=== PATIENT | female | born 1955 | race Caucasian/White ===

== ENCOUNTER → 2017-01-07 | Outpatient (CLI) | payer BC, OTHER ==
[2017-01-07 18:42] LABS: Basophils % (A) 0 %; CH 32.6; CHCM 33.5; Eosinophils % (A) 1 %; HCT 41.9 % (34.0-46.0); HDW 2.59; HGB 13.6 gm/dL (11.4-16.0); Luc # (Auto) 0.07; Luc % (Auto) 2; Lymphocytes # (A) 0.9 k/uL (1.0-4.8); Lymphocytes % (A) 20 %; MCH 31.7 pg (25.0-35.0); MCHC 32.5 g/dL (31.0-37.0); MCV 97.7 fL (80.0-100.0); Mean Platelet Volume 7.5; Monocytes # (A) 0.3 k/uL (0-1.0); Monocytes % (A) 6 %; Neutrophils # (A) 3.3 k/uL (1.3-7.7); Neutrophils % (A) 71 %; RBC 4.29 m/uL (3.80-5.40); WBC 4.6 k/uL (3.8-10.6); WBC (Perox) 4.93
[2017-01-07 19:05] LABS: ALT 24 U/L (9-52); AST 14 U/L (14-36); Alkaline Phosphatase 65 U/L (38-126); Anion Gap 11 mmol/L; Blood Urea Nitrogen 13 mg/dL (7-17); Calcium 8.8 mg/dL (8.4-10.2); Carbon Dioxide 27 mmol/L (22-30); Chloride 103 mmol/L (98-107); Cholesterol 132 mg/dL (<200); Glucose 85 mg/dL (74-99); HDL Cholesterol 31 mg/dL (40-60); Non-African American GFR(MDRD) >60 (>60 ml/min/1.73 sqM); Potassium 3.8 mmol/L (3.5-5.1); Sodium 141 mmol/L (137-145); Total Bilirubin 0.7 mg/dL (0.2-1.3); Total Protein 7.2 g/dL (6.3-8.2); Triglycerides 104 mg/dL (<150)
== END | disposition home or self-care (01) ==
LOC: MERGE 15:05 → MMGSC 15:05
PROVIDERS: ATTEND Family Medicine
DX: R42 Dizziness and giddiness (principal); M06.9 Rheumatoid arthritis, unspecified; R53.1 Weakness; E03.9 Hypothyroidism, unspecified; R60.0 Localized edema
CPT/HCPCS: 36415; 80053; 80061; 83880; 84439; 84443; 85025

== ENCOUNTER → 2017-01-08 | Outpatient (CLI) | payer BC | END | disposition home or self-care (01) | LOC: MMGSC 11:50 → MERGE 11:50 | PROVIDERS: ATTEND Family Medicine | DX: R94.5 Abnormal results of liver function studies (principal) | CPT/HCPCS: 36415; 84439; 84443; 84480 ==

== ENCOUNTER 2017-01-11 10:13 | Inpatient (IN) | payer BC, OTHER ==
[2017-01-11] MEDS ORDERED: RX INFO: IV CONTRAST WAS GIVEN 1 EACH MISC MISCELLANE PRN (10:42)
[2017-01-11] MEDS ORDERED: ACETAMINOPHEN IV (For NPO) 1,000 MG in SALINE 1 100ML.BAG IVPB STA (10:42)
[2017-01-11] MEDS ORDERED: SODIUM CHLORIDE 0.9% 1,000 ML IV STA (10:42)
[2017-01-11] MEDS ORDERED: ONDANSETRON 4 MG/2 ML VIAL IVP STA (10:42)
--- NOTE | 2017-01-11 10:48 | ED ---
General Adult HPI - General Chief complaint: Weakness Stated complaint: weakness Time Seen by Provider: 01/11/17 10:31 Source: patient, family, RN notes reviewed Mode of arrival: EMS Limitations: no limitations - History of Present Illness Initial comments: Patient is a pleasant 61-year-old female presenting to the emergency department complaining of generalized weakness. Symptoms have been on and off for the past 5 days. Patient has had intermittent episodes of weakness and falling. No significant injury. Patient has had some incontinence as well. Patient did have a fairly sudden onset headache on Thursday that was severe. Headache is mild at this time on the left side and only rated 3/10. Patient has had double vision for the past 3 days. Patient does complain of nausea. No isolated area of weakness. Patient does feel somewhat confused. - Related Data Home Medications Medication Instructions Recorded Confirmed ALPRAZolam [Xanax] 1 mg PO HS 12/25/15 01/11/17 Levothyroxine Sodium [Synthroid] 112 mcg PO DAILY 12/25/15 01/11/17 Metoprolol Succinate [Toprol XL] 50 mg PO DAILY@1700 12/25/15 01/11/17 buPROPion HCL [Wellbutrin XL] 300 mg PO DAILY 12/25/15 01/11/17 traZODone HCL [Desyrel] 100 mg PO HS 12/25/15 01/11/17 Allergies Allergy/AdvReac Type Severity Reaction Status Date / Time No Known Allergies Allergy Verified 01/11/17 10:27 Review of Systems ROS Statement: Those systems with pertinent positive or pertinent negative responses have been documented in the HPI. ROS Other: All systems not noted in ROS Statement are negative. Constitutional: Denies: fever Eyes: Denies: eye pain ENT: Denies: ear pain Respiratory: Denies: cough Cardiovascular: Denies: chest pain Endocrine: Reports: fatigue Gastrointestinal: Reports: nausea Genitourinary: Denies: dysuria Musculoskeletal: Denies: back pain Skin: Denies: rash Neurological: Reports: headache, weakness, confusion, abnormal gait Past Medical History Past Medical History: Deep Vein Thrombosis (DVT), Hypertension, Rheumatoid Arthritis (RA), Thyroid Disorder Additional Past Medical History / Comment(s): HX OF DVT IN LEG. History of Any Multi-Drug Resistant Organisms: None Reported Past Surgical History: Appendectomy, Bladder Surgery, Cholecystectomy, Hysterectomy, Tonsillectomy Additional Past Surgical History / Comment(s): THYROIDECTOMY, CATARACT RIGHT EYE Past Anesthesia/Blood Transfusion Reactions: Motion Sickness, Postoperative Nausea & Vomiting (PONV) Past Psychological History: Anxiety, Depression Smoking Status: Current every day smoker Past Alcohol Use History: None Reported Additional Past Alcohol Use History / Comment(s): SMOKES LESS THAN A PPD. SMOKING FOR 32 YEARS. Past Drug Use History: None Reported - Past Family History Son(s) Family Medical History: Cancer Additional Family Medical History / Comment(s): NEUROBLASTOMA General Exam Limitations: no limitations General appearance: alert, in no apparent distress Head exam: Present: atraumatic Eye exam: Present: PERRL, other (Disconjugate gaze which patient states is not chronic) ENT exam: Present: normal oropharynx Neck exam: Present: normal inspection Respiratory exam: Present: normal lung sounds bilaterally Cardiovascular Exam: Present: regular rate, normal rhythm GI/Abdominal exam: Present: soft. Absent: tenderness Extremities exam: Present: normal inspection Back exam: Present: normal inspection Neurological exam: Present: alert, oriented X3, other (Mild left facial droop not involving the forehead. No pronator deviation. Patient is unable to move the left eye medially past midline. Patient has difficulty moving the right thigh medially past midline.) Expanded Speech: Present: fluid speech Cranial nerves: EOM's Intact: Abnormal Right, Abnormal Left, Nystagmus: Abnormal Left (Some rotatory nystagmus with left eye left gaze), Facial Sensation: Normal Cerebellar function: Finger to Nose: Normal Sensory exam: Upper Extremity Light Touch: Normal, Lower Extremity Light Touch: Normal Motor strength exam: RUE: 5, LUE: 5, RLE: 5, LLE: 5 Eye Response: (4) open spontaneously Motor Response: (6) obeys commands Verbal Response: (5) oriented Psychiatric exam: Present: normal affect, normal mood Skin exam: Absent: rash Course Vital Signs 01/11/17 01/11/17 01/11/17 10:21 10:40 11:40 Temperature 98.5 F 98.2 F 98.3 F Pulse Rate 69 62 64 Respiratory 20 18 16 Rate Blood Pressure 107/60 148/81 134/65 O2 Sat by Pulse 9 L 98 95 Oximetry EKG Findings - EKG Comments: EKG Findings:: Normal sinus rhythm at 61. Normal intervals. Normal axis. Normal QRS. No acute ST change. Medical Decision Making - Medical Decision Making Patient reevaluated and unchanged. Patient is made aware of possibility of subarachnoid hemorrhage and is strongly advised to have lumbar puncture done. This was discussed with patient and family present over a long period of time. Patient was given risks and benefits. Patient is made aware that there is potential if this is not addressed symptoms could worsen and potentially lead to . Despite this patient refuses lumbar puncture. Patient does not want to be poked anymore. Patient does demonstrate medical decision making. Patient and family are made aware that there is concern still for possible subarachnoid hemorrhage even though it is not seen on CTA and computed tomography scan. Patient does have some symptoms consistent with this. There is also concern for stroke or possible tumor. Patient will need to be admitted with neurology evaluation. Case was discussed in detail with Dr. Lr, who will admit for Dr. Gtz. She does want MRI done and neurology consult. Also requests echo and EKG. There is agreement with Dr. Lr to hold on aspirin and anticoagulation at this time pending neurology consult and MRI. Patient and family were updated on all results and plan. - Lab Data Result diagrams: 01/11/17 11:03 01/11/17 11:03 Lab Results 01/11/17 01/11/17 01/11/17 Range/Units 10:46 11:03 11:03 WBC 4.1 (3.8-10.6) k/uL RBC 4.13 (3.80-5.40) m/uL Hgb 13.4 (11.4-16.0) gm/dL Hct 39.3 (34.0-46.0) % MCV 95.3 (80.0-100.0) fL MCH 32.4 (25.0-35.0) pg MCHC 34.1 (31.0-37.0) g/dL RDW 13.0 (11.5-15.5) % Plt Count 166 (150-450) k/uL Neutrophils % 73 % Lymphocytes % 20 % Monocytes % 5 % Eosinophils % 0 % Basophils % 1 % Neutrophils # 3.0 (1.3-7.7) k/uL Lymphocytes # 0.8 L (1.0-4.8) k/uL Monocytes # 0.2 (0-1.0) k/uL Eosinophils # 0.0 (0-0.7) k/uL Basophils # 0.0 (0-0.2) k/uL PT (9.0-12.0) sec INR (<1.1) APTT (22.0-30.0) sec Sodium (137-145) mmol/L Potassium (3.5-5.1) mmol/L Chloride (98-107) mmol/L Carbon Dioxide (22-30) mmol/L Anion Gap mmol/L BUN (7-17) mg/dL Creatinine (0.52-1.04) mg/dL Est GFR (MDRD) Af Amer (>60 ml/min/1.73 sqM) Est GFR (MDRD) Non-Af (>60 ml/min/1.73 sqM) Glucose (74-99) mg/dL POC Glucose (mg/dL) 74 L (75-99) mg/dL POC Glu Staff Electrical Engineer ID Ying, Marie Calcium (8.4-10.2) mg/dL Total Bilirubin (0.2-1.3) mg/dL AST (14-36) U/L ALT (9-52) U/L Alkaline Phosphatase (38-126) U/L Total Creatine Kinase 61 (30-135) U/L CK-MB (CK-2) <0.2 (0.0-2.4) ng/mL CK-MB (CK-2) Rel Index Troponin I <0.012 (0.000-0.034) ng/mL Total Protein (6.3-8.2) g/dL Albumin (3.5-5.0) g/dL 01/11/17 01/11/17 Range/Units 11:03 11:03 WBC (3.8-10.6) k/uL RBC (3.80-5.40) m/uL Hgb (11.4-16.0) gm/dL Hct (34.0-46.0) % MCV (80.0-100.0) fL MCH (25.0-35.0) pg MCHC (31.0-37.0) g/dL RDW (11.5-15.5) % Plt Count (150-450) k/uL Neutrophils % % Lymphocytes % % Monocytes % % Eosinophils % % Basophils % % Neutrophils # (1.3-7.7) k/uL Lymphocytes # (1.0-4.8) k/uL Monocytes # (0-1.0) k/uL Eosinophils # (0-0.7) k/uL Basophils # (0-0.2) k/uL PT 11.4 (9.0-12.0) sec INR 1.1 (<1.1) APTT 34.6 H (22.0-30.0) sec Sodium 140 (137-145) mmol/L Potassium 3.4 L (3.5-5.1) mmol/L Chloride 101 (98-107) mmol/L Carbon Dioxide 28 (22-30) mmol/L Anion Gap 11 mmol/L BUN 11 (7-17) mg/dL Creatinine 0.73 (0.52-1.04) mg/dL Est GFR (MDRD) Af Amer >60 (>60 ml/min/1.73 sqM) Est GFR (MDRD) Non-Af >60 (>60 ml/min/1.73 sqM) Glucose 91 (74-99) mg/dL POC Glucose (mg/dL) (75-99) mg/dL POC Glu Staff Electrical Engineer ID Calcium 8.2 L (8.4-10.2) mg/dL Total Bilirubin 0.8 (0.2-1.3) mg/dL AST 17 (14-36) U/L ALT 25 (9-52) U/L Alkaline Phosphatase 59 (38-126) U/L Total Creatine Kinase (30-135) U/L CK-MB (CK-2) (0.0-2.4) ng/mL CK-MB (CK-2) Rel Index Troponin I (0.000-0.034) ng/mL Total Protein 6.8 (6.3-8.2) g/dL Albumin 3.2 L (3.5-5.0) g/dL - Radiology Data Radiology results: image reviewed (Computed tomography scan of brain and CT of the brain shows no acute process. Two-view chest x-ray shows no acute process) Disposition Clinical Impression: Ocular palsy, Weakness Disposition: ADMITTED IP TO THIS [facility] Condition: Serious
[2017-01-11 10:51] LABS: Glucose,Whole Blood 74 mg/dL (75-99)
[2017-01-11 11:26] LABS: Basophils % (A) 1 %; CH 32.8; CHCM 34.6; Eosinophils % (A) 0 %; HCT 39.3 % (34.0-46.0); HDW 2.73; HGB 13.4 gm/dL (11.4-16.0); Luc # (Auto) 0.09; Luc % (Auto) 2; Lymphocytes # (A) 0.8 k/uL (1.0-4.8); Lymphocytes % (A) 20 %; MCH 32.4 pg (25.0-35.0); MCHC 34.1 g/dL (31.0-37.0); MCV 95.3 fL (80.0-100.0); Mean Platelet Volume 7.3; Monocytes # (A) 0.2 k/uL (0-1.0); Monocytes % (A) 5 %; Neutrophils % (A) 73 %; RBC 4.13 m/uL (3.80-5.40); WBC 4.1 k/uL (3.8-10.6); WBC (Perox) 3.96
[2017-01-11 11:34] LABS: INR 1.1 (<1.1); Partial Thromboplastin Time 34.6 sec (22.0-30.0); Prothrombin Time 11.4 sec (9.0-12.0)
[2017-01-11 11:50] LABS: ALT 25 U/L (9-52); AST 17 U/L (14-36); Alkaline Phosphatase 59 U/L (38-126); Anion Gap 11 mmol/L; Blood Urea Nitrogen 11 mg/dL (7-17); Calcium 8.2 mg/dL (8.4-10.2); Carbon Dioxide 28 mmol/L (22-30); Chloride 101 mmol/L (98-107); Glucose 91 mg/dL (74-99); Non-African American GFR(MDRD) >60 (>60 ml/min/1.73 sqM); Potassium 3.4 mmol/L (3.5-5.1); Sodium 140 mmol/L (137-145); Total Bilirubin 0.8 mg/dL (0.2-1.3); Total Protein 6.8 g/dL (6.3-8.2)
[2017-01-11 11:51] LABS: Creatine Kinase 61 U/L (30-135)
[2017-01-11 12:04] LABS: Creatine Kinase MB <0.2 ng/mL (0.0-2.4); Troponin I <0.012 ng/mL (0.000-0.034)
--- NOTE | 2017-01-11 12:07 | CT ---
EXAMINATION TYPE: CT brain wo con DATE OF EXAM: 01/11/2017 11:53 AM COMPARISON: NONE HISTORY: Neurologic deficits. Patient complains of weakness and double vision. TECHNIQUE: CT scan of the head is performed without contrast. Automated Exposure Control for Dose Red uction was Utilized. FINDINGS: There is no acute intracranial hemorrhage, mass effect, or midline shift identified. The ventricles and sulci are within normal limits in size. Patchy areas of hypoattenuation are seen with in the cortical white matter of the castro radiata and periventricular white matter. Mild symmetric v entricular and peripheral sulcal atrophy air noted. Ocular lenses are absent. Mild mucosal thickening is seen within the ethmoid sinuses. The globes are intact and the visualized sinuses are clear. IMPRESSION: 1. No acute intracranial hemorrhage, mass effect, or midline shift is seen. 2. Few nonspecific white matter changes, likely on the basis of chronic microangiopathy.
--- NOTE | 2017-01-11 12:12 | CT ---
EXAMINATION TYPE: CT angio head neck DATE OF EXAM: 01/11/2017 11:52 AM HISTORY: Neurologic deficits. COMPARISON: NONE CT DLP: 1029.9 mGycm. Automated Exposure Control for Dose Reduction was Utilized. Note the CT brain dictation the same day DLP of 57.4 TECHNIQUE: CTA scan of the neck is performed, patient injected with 65 mL of Omnipaque 350 and 50 ml of saline, axial images are obtained, coronal and sagittal reformatted images are reviewed. Three-D reconstructed images are created on an independent workstation and reviewed. FINDINGS: There is no evidence of vascular occlusion, aneurysmal outpouching, or dissection. Minimal nonhemodynamically significant atherosclerosis is seen at the right carotid bulb of less than 10% of the circumference. Nonhemodynamically significant atherosclerosis is also seen at the supraclinoid po rtion of the right internal carotid artery. No evidence of vascular malformation. [place] is intact. The left vertebral artery is codominant. Mild right paraseptal emphysematous changes are seen. Degenerative changes are appreciated of the cer vical spine. IMPRESSION: No evidence of vascular occlusion, aneurysm, or dissection. Minimal nonhemodynamically s ignificant atherosclerosis of the right carotid bulb and supraclinoid portion of the right internal c arotid artery.
--- NOTE | 2017-01-11 12:55 | XR ---
EXAMINATION TYPE: XR chest 2V DATE OF EXAM: 01/11/2017 12:30 PM COMPARISON: NONE INDICATION: Altered mental status congestion TECHNIQUE: Frontal and lateral views of the chest are obtained. FINDINGS: The heart size is normal. The pulmonary vasculature is normal. The lungs are clear. IMPRESSION: 1. No acute pulmonary process.
[2017-01-11] MEDS: SODIUM CHLORIDE 0.9% 1,000 ML IV SCH ×2 (14:23→22:38)
[2017-01-11] MEDS: METOPROLOL SUCCINATE (ER) 50 MG TAB.ER.24H PO SCH (17:07)
--- NOTE | 2017-01-11 17:34 | P.CNNES ---
History of Present Illness Consult date: 01/11/17 Reason for Consult: Patient admitted with diplopia and headaches. History of Present Illness: This patient is a 61-year-old right-handed white female who apparently 3 days ago had developed episode of blurred vision followed by double vision. Prior to this a few days earlier she was having difficulty ambulating at home. According to her who is at bedside she was having multiple falls at home 5 days ago. She was unable to keep her balance and apparently her legs were giving out and she was collapsing to the floor. She went to see her primary care physician Dr. Chris Howard ordered some testing for her. Her noted today that she was not showing any improvement and was complaining of increase double vision and decided to bring her to the emergency room. She was seen in the ER today at the [facility] by Dr. Campbell. She was found to have evidence of ocular muscle weakness with disconjugate eye gaze. She was sent for a computed tomography scan of the brain which revealed no acute intracranial hemorrhage or acute stroke. Some chronic white matter changes were noted. She also had a CTA angiogram of the head and neck which was reported negative for any vascular occlusive disease. Dr. Campbell did evaluate the patient for stroke and her NIH stroke scale was 5.0. Since her symptoms started 5 days prior she was not a TPA candidate. Due to the severity of her headache she was recommended to undergo a lumbar puncture by the ER physician. Once the procedure was explained to her she declined to have LP done as she was scared of possible complications. Her headache has since improved since admission. She is scheduled for MRI and MRA of the brain tomorrow and we will need to await those results. The patient denies any previous history of TIA or stroke. The patient was admitted to the hospital for further stroke evaluation. She is resting comfortably in bed at this time and denies any headache. She is complaining of vertical diplopia she does see one on top of the other in terms of her double vision. She is noted to have disconjugate eye gaze and does appear to have bilateral medial rectus muscle weakness. Her clinical history is highly suspicious for brainstem stroke. The patient denies any previous history of stroke. She does have a history of deep vein thrombosis after a long train ride but does not had any other clotting disorders in the past. There is no strong family history of stroke. She is now been admitted and neurology has been consulted for further evaluation and recommendations. Review of Systems Constitutional: Denies chills, Denies fever Eyes: denies blurred vision, denies pain Ears, nose, mouth and throat: Denies headache, Denies sore throat Cardiovascular: Denies chest pain, Denies shortness of breath Respiratory: Denies cough Gastrointestinal: Denies abdominal pain, Denies diarrhea, Denies nausea, Denies vomiting Genitourinary: Denies dysuria, Denies hematuria Musculoskeletal: Denies myalgias Integumentary: Denies pruritus, Denies rash Neurological: Reports double vision, Reports headaches, Reports lack of coordination, Reports paresthesias, Denies numbness, Denies weakness Psychiatric: Denies anxiety, Denies depression Endocrine: Denies fatigue, Denies weight change Past Medical History Past Medical History: Deep Vein Thrombosis (DVT), Hypertension, Rheumatoid Arthritis (RA), Thyroid Disorder Additional Past Medical History / Comment(s): HX OF DVT IN LEG. 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 SMOKING FOR 32 YEARS. Past Drug Use History: None Reported - Past Family History Son(s) Family Medical History: Cancer Additional Family Medical History / Comment(s): NEUROBLASTOMA Medications and Allergies Home Medications Medication Instructions Recorded Confirmed Type ALPRAZolam [Xanax] 1 mg PO HS 12/25/15 01/11/17 History Levothyroxine Sodium [Synthroid] 112 mcg PO DAILY 12/25/15 01/11/17 History Metoprolol Succinate [Toprol XL] 50 mg PO DAILY@1700 12/25/15 01/11/17 History buPROPion HCL [Wellbutrin XL] 300 mg PO DAILY 12/25/15 01/11/17 History traZODone HCL [Desyrel] 100 mg PO HS 12/25/15 01/11/17 History Allergies Allergy/AdvReac Type Severity Reaction Status Date / Time No Known Allergies Allergy Verified 01/11/17 13:18 Physical Examination - Vital Signs Vital Signs: Vital Signs Temp Pulse Pulse Resp BP BP Pulse Ox 01/11/17 15:00 96.8 F L 57 L 18 115/56 97 01/11/17 13:40 98.3 F 56 L 16 101/50 92 L Intake and Output 01/11/17 01/11/17 01/11/17 06:59 14:59 22:59 Other: Weight 71.2 kg Patient Weight 01/12/17 06:59 Weight 71.2 kg - Constitutional General appearance: average body habitus, cooperative - EENT EENT: mucous membranes moist - Respiratory Respiratory: lungs clear, normal breath sounds - Cardiovascular Cardiovascular: regular rate, normal S1, normal S2 Extremities: no peripheral edema bilaterally - Gastrointestinal Gastrointestinal: normoactive bowel sounds - Integumentary Integumentary: normal - Neurologic Cranial nerve examination: PERRL, EOMI (Patient is noted to have bilateral medial rectus weakness in both eyes. Pupil does not cross midline on medial gaze bilaterally.), VFF, V1/V2/V3 grossly intact, tongue midline, intact gag reflex, intact corneal reflex, facial droop (There is a left upper motor neuron facial weakness pattern.), normal palatal elevation Speech examination: intact Sensorimotor examination: intact Motor examination - right side: 3/5: wrist extension, commodity merchant, knee extensors, 4/5 : biceps, triceps, wrist flexion, hip flexors, dorsiflexion, toe extension (EHL) , plantarflexion Motor examination - left side: 5/5: biceps, triceps, wrist flexion, wrist extension, commodity merchant, hip flexors, knee extensors, dorsiflexion, toe extension (EHL) , plantarflexion Detailed sensory examination: intact Reflex and gait examination: intact Reflexes: 1+: ankle, bicep, knee, tricep - Musculoskeletal Musculoskeletal: no pain - Psychiatric Psychiatric: mood/affect appropriate, cooperative Results - Laboratory Findings CBC and BMP: 01/11/17 11:03 01/11/17 11:03 Assessment and Plan (1) Brainstem stroke Status: Acute Code(s): I63.9 - CEREBRAL INFARCTION, UNSPECIFIED (2) Headache Status: Acute Code(s): R51 - HEADACHE (3) Third nerve palsy of both eyes Status: Acute Code(s): H49.03 - THIRD [OCULOMOTOR] NERVE PALSY, BILATERAL Plan: This patient is a 61-year-old female who was brought into the emergency room after having a 5 day history of multiple falls and weakness. Patient also had severe headache 2 days ago as well as sudden onset of diplopia. The diplopia started 2 days prior to her admission. She was brought in to her primary care physician's office for initial evaluation last week. She was recommended to undergo some testing. Her symptoms worsen today and her brought her to the emergency room. She was seen in the ER by Dr. Campbell. She was recommended to undergo a lumbar puncture to rule out subarachnoid hemorrhage due to her headaches. The patient declined and refused LP procedure and was admitted to Hospital. Her neurological examination at this time suggest brainstem stroke. We have recommended that she undergo an MRI/MRA of the brain for further evaluation. We will hold off on aspirin until results of the MRI MRA are available tomorrow. Patient may benefit from patching the eye alternatively due to her onset of diplopia. Would also consider ophthalmology consultation. We have recommended a complete stroke evaluation for the patient. Her overall prognosis at this time remains very guarded. Case was discussed at length with the patient and her at bedside. All of their questions were answered. They are in agreement with our current treatment plan and we will proceed with a complete stroke evaluation for her at this time. Her overall prognosis at this time remains guarded. Case was discussed today at length with the ER physician Dr. Campbell. As noted she is not a TPA candidate as she is out of the therapeutic window. We will await the results of her MRI MRA of the brain and give further recommendations. Time with Patient: Greater than 30
[2017-01-11] MEDS: traZODone HCL 100 MG TAB PO SCH (20:56)
[2017-01-11] MEDS: ALPRAZolam 0.5 MG TAB PO SCH (20:56)
[2017-01-11] MEDS ORDERED: ACETAMINOPHEN TAB 325 MG TAB PO PRN (23:45)
[2017-01-12] MEDS: IBUPROFEN 600 MG TAB PO PRN ×2 (00:33→15:51)
[2017-01-12] MEDS: LEVOTHYROXINE 112 MCG TAB PO SCH (06:44)
[2017-01-12] MEDS: SODIUM CHLORIDE 0.9% 1,000 ML IV SCH ×2 (08:36→20:53)
--- NOTE | 2017-01-12 09:41 | MR ---
EXAMINATION TYPE: MR brain wo/w con, MR angio head wo con DATE OF EXAM: 01/12/2017 9:24 AM COMPARISON: CT brain and CTA [place] from yesterday. HISTORY: Ocular palsy, weakness TECHNIQUE: Multiplanar, multisequence images of the brain and brainstem is performed without and with IV contras t, utilizing 15 mL intravenous MultiHance . MRA imaging is performed without contrast. 2-D and 3-D re constructed images are created and reviewed. FINDINGS: Diffusion weighted images demonstrate single faint area of increased signal on diffusion we ighted images with diminished signal ADC mapping in the posterior inferior david just right of midline that does not reproduce well on T1 and T2-weighted images in which area of acute ischemia cannot be excluded. There is no worrisome extra-axial fluid collection. There is ventricular and sulcal promine nce consistent with diffuse cerebral atrophy. There are some scattered foci of T2 hyperintensity seen throughout the white matter bilaterally with 2 largest lesions seen on axial image 22 just above the lateral ventricles. Lesions are nonspecific in appearance and distribution. Roughly 10 focal lesions are felt present. Midline structures demonstrate normal morphology. The craniocervical junction appears within normal limits. Post contrast images demonstrate no abnormal enhancement. The dural venous sinuses appear pa tent. There is moderate mucosal thickening involving ethmoid sinuses bilaterally. There is mild to mo derate mucosal thickening involving the sphenoid sinuses bilaterally. Mild mucosal thickening in both maxillary sinuses is present. I suspect some new air-fluid levels in bilateral maxillary sinuses and left sphenoid sinus. Findings correlate with recent CT. The globes are intact bilaterally. Both lens es are thinned. Basilar artery origin is not included in entirety on MRI images. There is no significant focal stenos is or aneurysmal change in the posterior circulation. There is a small caliber but patent right poste rior communicating artery. There is hypoplastic left posterior communicating artery identified. Image s of the anterior circulation show no significant focal stenosis or aneurysmal change. Patent anterio r communicating artery is not well identified. IMPRESSION: 1. Suspect acute lacunar infarct involving the posterior inferior david just right of midline. Finding is not reproduced while on T1 or T2-weighted images perhaps due to small size. 2. There is background of mild to moderate diffuse cerebral atrophy and chronic small vessel ischemic change redemonstrated. 3. There is acute on chronic paranasal sinus disease redemonstrated slightly more prominent than rece nt CT. 4. No aneurysmal change at level of [place]. No significant focal stenosis is seen.
--- NOTE | 2017-01-12 10:22 | ECHOF ---
Referral Reason:Thrombus MEASUREMENTS -------- HEIGHT: 162.6 cm WEIGHT: 72.1 kg BP: 109/56 RVIDd: 3.4 cm (< 3.3) IVSd: 1.2 cm (0.6 - 1.1) LVIDd: 3.8 cm (3.9 - 5.3) LVPWd: 1.3 cm (0.6 - 1.1) IVSs: 1.3 cm LVIDs: 2.7 cm LVPWs: 1.4 cm LA Diam: 3.0 cm (2.7 - 3.8) LAESV Index (A-L): 14.78 ml/m Ao Diam: 3.3 cm (2.0 - 3.7) AV Cusp: 2.4 cm (1.5 - 2.6) LA Diam: 3.2 cm (2.7 - 3.8) MV EXCURSION: 18.742 mm (> 18.000) MV EF SLOPE: 133 mm/s (70 - 150) EPSS: 0.6 cm MV E Aaron: 0.75 m/s MV DecT: 262 ms MV A Aaron: 0.45 m/s MV E/A Ratio: 1.65 RAP: 5.00 mmHg RVSP: 38.46 mmHg FINDINGS -------- Resting bradycardia (HR<60bpm). This was a technically good study. There is mild concentric left ventricular hypertrophy. Overall left ventricular systolic function is normal with, an EF between 55 - 60 %. The right ventricle is mildly enlarged. Normal LA size by volume 22+/-6 ml/m2. The right atrium is normal in size. The aortic valve is trileaflet and appears structurally normal. The mitral valve leaflets are mildly thickened. Mild mitral annular calcification present. Mild tricuspid regurgitation present. There is mild pulmonary hypertension. The right ventricular systolic pressure, as measured by Doppler, is 38.46mmHg. The pulmonic valve was not well visualized. The aortic root size is normal. Normal inferior vena cava with normal inspiratory collapse consistent with estimated right atrial pressure of 5 mmHg. Echo free space may represent effusion or a pericardial fat pad. CONCLUSIONS -------- 1. Resting bradycardia (HR<60bpm). 2. Mild mitral annular calcification present. 3. Mild tricuspid regurgitation present. 4. There is mild pulmonary hypertension. 5. The right ventricular systolic pressure, as measured by Doppler, is 38.46mmHg. 6. The pulmonic valve was not well visualized. 7. The aortic root size is normal. 8. Echo free space may represent effusion or a pericardial fat pad. 9. This was a technically good study. 10. There is mild concentric left ventricular hypertrophy. 11. Overall left ventricular systolic function is normal with, an EF between 55 - 60 %. 12. The right ventricle is mildly enlarged. 13. Normal LA size by volume 22+/-6 ml/m2. 14. The right atrium is normal in size. 15. The aortic valve is trileaflet and appears structurally normal. 16. The mitral valve leaflets are mildly thickened. FILTER TANK TENDER: Bunny Williamson RDCS
[2017-01-12] MEDS: buPROPion XL 300 MG TAB.ER.24H PO SCH (10:37)
[2017-01-12 13:45] VITALS: BMI 27.3
[2017-01-12] MEDS: NICOTINE 14MG/24HR PATCH TRANSDERM SCH (14:35)
[2017-01-12] MEDS: METOPROLOL SUCCINATE (ER) 50 MG TAB.ER.24H PO SCH (15:53)
--- NOTE | 2017-01-12 15:55 | P.HPIM ---
History of Present Illness H&P Date: 01/12/17 Chief Complaint: stroke, double vision, abnormal balance and gait, debility, hypertension, h 61-year-old female one of Dr. Coughlin's patient with past medical history of hypertension hypothyroidism depression history of rheumatoid arthritis COPD and previous history of deep venous thrombosis who smoke 1 pack daily for 32 years was doing well until 3 days earlier when developed to have severe dizziness abnormal balance and gait multiple fall and double vision symptoms become much worse over the last 48 hours with her episode of falling many times with her abnormal balance and the double vision ended up coming to the emergency department at [facility] with you in her was seen and evaluated CT of the brain did not show any bleed at the time. Patient had CTA of the neck was negative for any major stenosis. With her current symptoms consistent with CVA most likely the brain stem or cerebellum patient was admitted to the hospital consult neurology and will be going for echocardiogram possible transesophageal echocardiogram with neuro exam will need most likely ophthalmology consultation. Review of Systems Constitutional: Reports chronic pain, Reports fatigue, Reports lethargy, Reports malaise, Reports poor appetite, Reports weakness, Reports weight loss, Denies as per HPI, Denies anorexia, Denies chills, Denies chronic headaches, Denies daytime sleepiness, Denies fever, Denies night sweats, Denies sweats, Denies weight gain Eyes: bilateral blurred vision, bilateral diplopia, bilateral discharge, bilateral photophobia Ears: bilateral: decreased hearing Ears, nose, mouth and throat: Reports ant. neck pain, Reports dysphagia, Reports nasal discharge, Reports post-nasal drip, Denies as per HPI, Denies bleeding gums, Denies dental pain, Denies epistaxis, Denies headache, Denies hoarseness, Denies mouth pain, Denies nasal congestion, Denies neck fullness/ pressure, Denies neck lump, Denies nose pain, Denies odynophagia, Denies sinus pain, Denies sinus pressure, Denies swelling in mouth, Denies swelling in throat , Denies sore throat, Denies vertigo, Denies voice changes Cardiovascular: Reports dyspnea on exertion, Reports edema, Reports lightheadedness, Reports orthopnea, Reports rapid heart beat, Reports shortness of breath, Denies as per HPI, Denies chest pain, Denies claudication, Denies decreased exercise tolerance, Denies high blood pressure, Denies irregular heart beat, Denies leg edema, Denies palpitations, Denies paroxysmal nocturnal dyspnea, Denies phlebitis, Denies syncope Respiratory: Reports congestion, Reports cough, Reports dyspnea, Reports wheezing, Denies as per HPI, Denies cough with sputum, Denies excessive sputum, Denies hemoptysis, Denies home oxygen, Denies pain, Denies pain on inspiration, Denies pleurisy, Denies respiratory infections, Denies sleep apnea, Denies snoring Gastrointestinal: Reports abdominal pain, Reports belching, Reports bloating, Reports BRBPR, Reports constipation, Reports dyspepsia, Reports indigestion, Reports nausea, Denies as per HPI, Denies change in bowel habits, Denies coffee ground emesis, Denies diarrhea, Denies early satiety, Denies excessive gas, Denies heartburn, Denies hematemesis, Denies hematochezia, Denies jaundice, Denies lactose intolerance, Denies loss of appetite, Denies melena, Denies vomiting Genitourinary: Reports urgency, Reports urinary frequency, Denies as per HPI, Denies abnormal vaginal bleeding, Denies decreased libido, Denies difficulty conceiving, Denies difficulty voiding, Denies dysmenorrhea, Denies dyspareunia, Denies dysuria, Denies flank pain, Denies genital sores, Denies hematuria, Denies hot flashes, Denies incomplete emptying, Denies kidney stones, Denies menorrhagia, Denies mixed incontinence, Denies nocturia, Denies pelvic pain, Denies post void dribbling, Denies , Denies prolapse symptoms, Denies stress incontinence, Denies urge incontinence, Denies vaginal discharge, Denies vaginal dryness, Denies vaginal itching, Denies vaginal odor Musculoskeletal: Reports arm numbness/tingling, Reports frequent falls, Reports gait dysfunction, Reports morning stiffness, Reports neck pain, Reports neck stiffness, Reports prior amputations, Denies as per HPI, Denies atrophy, Denies fractures, Denies hot joints, Denies leg numbness/tingling, Denies limitation of motion, Denies loss of height, Denies low back pain, Denies muscle cramps, Denies muscle weakness, Denies myalgias, Denies redness of joints, Denies shooting arm pain, Denies shooting leg pain Musculoskeletal: bilateral: ankle pain Integumentary: Reports darkening of skin, Reports dryness, Reports pruritus, Reports rash, Denies as per HPI, Denies acne, Denies boils, Denies brittle nails , Denies change in hair/nails, Denies color changes, Denies depigmentation, Denies foot/leg ulcers, Denies growths, Denies hirsutism, Denies lesions, Denies onychomycosis, Denies sores, Denies striae, Denies unusual bruising, Denies wounds Neurological: Reports ataxia, Reports balance difficulties, Reports change in smell/taste, Reports confusion, Reports double vision, Reports gait dysfunction , Reports headaches, Reports lack of coordination, Reports motor disturbance, Reports numbness, Reports paralysis, Reports paresthesias, Reports spasticity, Reports tingling, Reports weakness, Reports visual changes, Denies as per HPI, Denies aphasia, Denies burning pain, Denies change in mentation, Denies change in speech, Denies convulsions, Denies head injury, Denies hearing difficulties, Denies loss of vision, Denies memory loss, Denies migraines, Denies seizures, Denies sensory deficit, Denies syncope, Denies tic, Denies transient paralysis, Denies tremors, Denies vertigo Psychiatric: Reports anhedonia, Reports anxiety, Reports depression, Reports sadness/tearfulness, Denies as per HPI, Denies anxiety attacks, Denies change in appetite, Denies change in libido, Denies change in sleep habits, Denies confusion, Denies difficulty concentrating, Denies disorientation, Denies hallucinations, Denies hopelessness, Denies hypersomnia, Denies insomnia, Denies irritability, Denies memory loss, Denies mood swings, Denies paranoia, Denies sleep disturbances, Denies suicidal ideation Endocrine: Reports cold intolerance, Reports excessive thirst, Reports nocturia , Reports polyuria, Denies as per HPI, Denies deepening of the voice, Denies excessive sweating, Denies fatigue, Denies flushing, Denies heat intolerance, Denies high blood sugars, Denies increase in ring/shoe/hat size, Denies low blood sugars, Denies palpitations, Denies polydipsia, Denies polyphagia, Denies proptosis, Denies recent glucocorticoid use, Denies thyroid mass, Denies weight change Hematologic/Lymphatic: Denies as per HPI, Denies easy bleeding, Denies easy bruising, Denies lymphadenopathy, Denies lymphedema, Denies thrombophilia Allergic/Immunologic: Denies as per HPI, Denies allergic rhinitis, Denies anaphylaxis, Denies angioedema, Denies gluten intolerance, Denies persistent infections, Denies seasonal allergies, Denies urticaria, Denies wheezing Past Medical History Past Medical History: Deep Vein Thrombosis (DVT), Hypertension, Rheumatoid Arthritis (RA), Thyroid Disorder Additional Past Medical History / Comment(s): HX OF DVT IN LEG. 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 SMOKING FOR 32 YEARS. Past Drug Use History: None Reported - Past Family History Son(s) Family Medical History: Cancer Additional Family Medical History / Comment(s): NEUROBLASTOMA Medications and Allergies Home Medications Medication Instructions Recorded Confirmed Type ALPRAZolam [Xanax] 1 mg PO HS 12/25/15 01/11/17 History Levothyroxine Sodium [Synthroid] 112 mcg PO DAILY 12/25/15 01/11/17 History Metoprolol Succinate [Toprol XL] 50 mg PO DAILY@1700 12/25/15 01/11/17 History buPROPion HCL [Wellbutrin XL] 300 mg PO DAILY 12/25/15 01/11/17 History traZODone HCL [Desyrel] 100 mg PO HS 12/25/15 01/11/17 History Allergies Allergy/AdvReac Type Severity Reaction Status Date / Time No Known Allergies Allergy Verified 01/11/17 13:18 Physical Exam Vitals: Vital Signs Temp Pulse Resp BP Pulse Ox 01/12/17 12:00 97.2 F L 56 L 16 145/63 98 01/12/17 10:00 96.3 F L 54 L 18 132/59 96 01/12/17 08:00 97.4 F L 66 18 109/55 98 01/12/17 04:00 98.5 F 59 L 16 109/56 94 L 01/12/17 00:00 103.3 F H 77 17 122/58 93 L 01/11/17 20:00 100.3 F H 70 16 148/69 96 01/11/17 18:00 58 L 18 104/63 100 01/11/17 17:00 64 18 116/57 95 01/11/17 16:00 99.1 F 58 L 18 101/52 97 01/11/17 15:00 96.8 F L 57 L 18 115/56 97 Intake and Output 01/11/17 01/12/17 01/12/17 22:59 06:59 14:59 Intake Total 180 1000 190 Balance 180 1000 190 Intake: IV 1000 10 Invasive Line 3 10 Sodium Chloride 0.9% 1, 1000 000 ml @ 100 mls/hr IV . Q10H [facility] Rx#:[id number] Oral 180 180 Other: Voiding Method Toilet Toilet # Voids 1 1 1 # Bowel Movements 0 Weight 72.3 kg 72.3 kg Patient Weight 01/13/17 06:59 Weight 72.3 kg - Constitutional General appearance: no average body habitus, cooperative, no disheveled, no mild distress, no morbidly obese, no acute distress, no obese, no severe distress, no thin - EENT Eyes: no abnormal pupil, no anicteric sclerae, no disc margins sharp, no edentulous, no EOMI, no PERRLA, no fundus normal, photophobia, dentition normal , no poor dentition, no ptosis, no scleral icterus, normal appearance ENT: no hard of hearing, no hearing grossly normal, no NA/AT, normal oropharynx , no other, pharyngeal erythema, no thrush, no tonsillar exudates, no tonsillar swelling Ears: bilateral: normal - Neck Neck: no lymphadenopathy, normal ROM, no other, no rigidity, no stridor, no thyromegaly Carotids: bilateral: upstroke normal Thyroid: bilateral: normal size - Respiratory Respiratory: bilateral: CTA, diminished, dullness, rales - Cardiovascular Rhythm: regular Heart sounds: normal: S1, S2 Abnormal Heart Sounds: systolic murmur, S3 Gallop - Gastrointestinal General gastrointestinal: absent bowel sounds, no decreased bowel sounds, distended, no hepatomegaly, hyperactive bowel sounds, no normal bowel sounds, organomegaly, no rigid, no scaphoid, no soft, no splenomegaly, no tenderness, no umbilical hernia, no ventral hernia - Integumentary Integumentary: no calor, no cellulitis, no cyanotic, no decreased turgor, no flushed, no jaundiced, no normal, normal turgor, pale, rash, no ulcer - Musculoskeletal Musculoskeletal: no gait normal, no generalized weakness, strength equal bilaterally, no right sided weakness, no left sided weakness - Psychiatric Psychiatric: A&O x's 3, appropriate affect Results CBC & Chem 7: 01/11/17 11:03 01/11/17 11:03 Thrombosis Risk Factor Assmnt - DVT/VTE Prophylaxis DVT/VTE Prophylaxis: Pharmacologic Prophylaxis ordered, Mechanical Prophylaxis ordered - Choose All That Apply Any of the Below Risk Factors Present?: Yes Each Factor Represents 1 point: Age 41-60 years, Obesity (BMI >25) Other Risk Factors: Yes Each Risk Factor Represents 3 Points: History of DVT/PE Thrombosis Risk Factor Assessment Total Risk Factor Score: 5 Thrombosis Risk Factor Assessment Level: High Risk Assessment and Plan Plan: 1 CVA: Still have significant residual with abnormal balance and gait and more ophthalmology symptoms consistent with a creatinine nerve III 4 and 6. Patient had creatinine nerve III palsy which will be evaluated byneuro and ophthalmology. Continue aspirin continue to use most likely antiplatelet agent for now. 2 double vision and severe abnormal vision: Patient be seen ophthalmology might need eyepatch further procedure will be decided by ophthalmology. 3 hypertension: Remain on metoprolol XL 50 mg daily Will add clonidine 0.1 mg every 6 hour for systolic above 160. 4 hypothyroidism: Patient is doing well on levothyroxine 112 g daily continue medication. 5 depression: Has been on Wellbutrin XL 300 mg daily and Desyrel 100 mg daily at bedtime. 6 arrhythmia: Possibility of nonsustained A. fib, we'll consult cardiology and patient might require loop monitor if needed YESSICA will be done. 7 chronic smoking: Patient be on nicotine patch 14 mg daily. 8 GERD/GI prophylaxis: Patient will be on Pepcid 20 mg daily. 9 debility and severe abnormal balance and gait with multiple falls: Patient will be seen PT OT will consult physiatry for possible need for inpatient or outpatient rehab. CODE STATUS: Full code. Expectation from this admission: Patient be in the hospital for more than 2 nights.
--- NOTE | 2017-01-12 16:28 | CONS ---
DATE OF CONSULTATION: CHIEF COMPLAINT: Recurrent falls, not feeling well and dizziness. Cardiology has been consulted to rule out cardiac source for thromboembolic phenomenon. The patient's predominant symptom is in the form of diplopia and headache. She has been falling. She had a CTA of the head and neck that is negative for occlusive disease. Her symptoms started about 5 days prior to coming in. Her clinical presentation was thought to be suggestive of a brainstem stroke. Past medical history is significant for: 1. DVT. 2. Hypertension. 3. Rheumatoid arthritis. Past surgical history is significant for: 1. Appendectomy. 2. Cholecystectomy. 3. Bladder surgery. 4. Hysterectomy. 5. Tonsillectomy. Medications include: 1. Xanax. 2. Synthroid. 3. Metoprolol. 4. Wellbutrin. 5. Desyrel. ALLERGIES: NO KNOWN DRUG ALLERGIES. FAMILY HISTORY: Negative for premature coronary artery disease. SOCIAL HISTORY: Negative for current smoking, ETOH abuse or drug abuse. REVIEW OF SYSTEMS: HEENT: Significant for blurred vision. CONSTITUTIONAL: Negative for fever, chills. CARDIOVASCULAR: Negative. RESPIRATORY: Negative. GI: Negative. GENITOURINARY: Negative. MUSCULOSKELETAL: Significant for myalgias. SKIN: Negative. NEUROLOGICAL: Significant for double vision, lack of coordination, weakness and recurrent falls. PSYCH: Negative. ENDOCRINE: Negative. On exam, patient is comfortable at rest. Vital signs are stable. There is no jugular venous distention. Chest exam reveals good air entry bilaterally. Heart exam reveals first and second heart sounds. No gallop. No murmur. Abdomen is soft, nontender. Examination of extremities did not reveal edema. Peripheral pulses are felt. Labs show that troponin is negative. EKG does not reveal ischemic changes. Potassium is 3.4. Creatinine is 0.7. ASSESSMENT: Cerebrovascular accident; rule out cardiac source of thromboembolic phenomenon. Echo looks normal. Patient is in sinus rhythm. I will do a YESSICA and we will consider doing a loop recorder on her if her event monitor is negative.
--- NOTE | 2017-01-12 19:31 | P.PN ---
Subjective This patient is a 61 year old female admitted yesterday for diplopia and mutiple falls at home. She was seen in neurology consultation yesterday and showed neurological clinical signs of probable brainstem stroke. The patient was sent for MRI/MRA brain today for further evaluation. MRI of the brain was completed today and did reveal evidence of a lacunar infarction in the pontine region of the brain stem. This was more noticeable on the right of midline. There was moderate degree of diffuse cerebral atrophy and chronic white matter ischemic changes noted as well. MRA failed to reveal any evidence of aneurysm. The results of the MRI and MRA were reviewed today with the patient. Cardiology was consult today for further evaluation of cardiac source for her stroke. She is being considered for possibility of paroxysmal atrial fibrillation. She may require a loop recorder as well as a YESSICA procedure. We will await further recommendations from cardiology. Patient's ocular findings have shown no significant improvement from yesterday. She may benefit from patching the eye during the day. We would recommend to consider placing this patient on dual platelet therapy with aspirin and Plavix. We will await the results of her cardiac workup and we'll give further recommendations. All test results were reviewed today with the patient in detail. She has been updated on the MRI findings of acute brainstem stroke. We will continue close neurological follow-up for the patient during this admission. Objective - Vital Signs Vital signs: Vital Signs Temp 97.2 F L 01/12/17 12:00 Pulse 56 L 01/12/17 12:00 Resp 16 01/12/17 12:00 BP 145/63 01/12/17 12:00 Pulse Ox 98 01/12/17 12:00 Intake & Output 01/11/17 01/12/17 01/12/17 18:59 06:59 18:59 Intake Total 1180 190 Balance 1180 190 Weight 71.2 kg 72.3 kg 72.3 kg Intake: IV 1000 10 Invasive Line 3 10 Sodium Chloride 0.9% 1, 1000 000 ml @ 100 mls/hr IV . Q10H [facility] Rx#:[id number] Oral 180 180 Other: Voiding Method Toilet # Voids 1 1 # Bowel Movements 0 - Exam Physical Examination: PHYSICAL EXAMINATION: Patient is resting comfortably in bed. VITAL SIGNS: Blood pressure is [145/70]. Heart rate is [67]. Respiration is [16] . Temperature is [97.2]. HEENT: Head is atraumatic, neck is supple, there were no carotid bruits. CHEST: Lungs are clear to auscultation and percussion. CARDIAC: S1, S2 normal rate and rhythm. There is no murmur. ABDOMEN: Soft and nontender. Bowel sounds are present. EXTREMITIES: There is no pedal edema. Peripheral pulses are present. Neurological examination: Patient's neurological examination is unchanged from yesterday. Specifically her eye findings remain significant with evidence of bilateral medial rectus weakness. This is consistent with MRI findings of pontine stroke. 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 Patient also had severe headache 2 days ago as well as sudden onset of diplopia. The diplopia started 2 days prior to her admission. She was brought in to her primary care physician's office for initial evaluation last week. She was recommended to undergo some testing. Her symptoms worsen today and her brought her to the emergency room. She was seen in the ER by Dr. Campbell. She was recommended to undergo a lumbar puncture to rule out subarachnoid hemorrhage due to her headaches. The patient declined and refused LP procedure and was admitted to Hospital. Her neurological examination at this time suggest brainstem stroke. We have recommended that she undergo an MRI/MRA of the brain for further evaluation. We will hold off on aspirin until results of the MRI MRA are available tomorrow. Patient may benefit from patching the eye alternatively due to her onset of diplopia. Would also consider ophthalmology consultation. We have recommended a complete stroke evaluation for the patient. Her overall prognosis at this time remains very guarded. Case was discussed at length with the patient and her at bedside. All of their questions were answered. The patient underwent MRI/MRA of the brain today. Results are as noted above. MRI of the brain does reveal evidence of a pontine stroke. This would explain her visual deficits at this time. She was seen by cardiology for further evaluation of cardiac source of stroke. She is being considered for YESSICA procedure as well as loop recorder for further evaluation of cryptogenic stroke. We will continue close neurological follow-up of this patient during this admission. She may be a very good candidate for dual platelet therapy with Plavix and aspirin. We will wait to see the results of her cardiac workup and we'll give further recommendations. The patient and her were updated on all of the neurological findings today. We will continue close neurological follow-up of this patient during this admission. Her overall prognosis at this time remains guarded.
--- NOTE | 2017-01-12 20:44 | CONS ---
DATE OF CONSULTATION: HISTORY: This is a 61-year-old white female who states that approximately 6 days ago she developed an episode of blurred vision which was accompanied by double vision. The patient stated that she struggled with this for several days and ultimately was seen by her primary care physician. The patient states that her double vision has persisted since its onset 6 days ago and has not improved or changed in nature. The patient denies any blurred vision with this and also denies any previous occurrences of this happening. The patient was admitted to the hospital for evaluation of a possible CVA. PHYSICAL EXAM: Visual acuity measured 20/30 with correction bilaterally. Pupils were equal and reactive to light. There was no afferent defect. On external exam, the lids were normal in appearance. There was no ptosis on either side. On penlight exam, the lids were normal in contour. The conjunctivae were quiet. Both corneas were clear. The anterior chambers were deep. The iris was normal and there was no evidence of lens dislocation. Motility: The patient has bilateral adduction deficits. She is not able to cross the midline gaze position in either eye. The superior and inferior gaze positions have not been affected. IMPRESSIONS: Bilateral internuclear ophthalmoplegia (AKA Webino syndrome, wall-eyed bilateral GRETA). This patient does not appear to have a bilateral third nerve palsy. (Typically ptosis is present if a third nerve palsy should occur. In addition, there should be a decrease in the patient's ability to gaze either superiorly or inferiorly, which is not present.) In a bilateral internuclear ophthalmoplegia, there is likely a rostral lesion within the mid brain that affects the convergence center which is causing the bilateral divergence that is evident in this patient's exam. In addition, in attempted abduction, the eye that is being abducted will often result in a nystagmus, which in fact is present in this patient's exam. The management of this is conservative, and intervention is not indicated at this time. I asked the patient to follow up upon discharge from the hospital, and palliative care usually involves covering one eye with a patch in order to alleviate symptoms of diplopia until which time resolution of this can occur.
[2017-01-12] MEDS: ALPRAZolam 0.5 MG TAB PO SCH (20:53)
[2017-01-12] MEDS: traZODone HCL 100 MG TAB PO SCH (20:53)
[2017-01-13] MEDS: IBUPROFEN 600 MG TAB PO PRN ×2 (01:35→12:46)
[2017-01-13] MEDS: SODIUM CHLORIDE 0.9% 1,000 ML IV SCH ×3 (06:32→15:55)
[2017-01-13 07:16] LABS: Basophils % (A) 1 %; CH 32.5; CHCM 33.7; Eosinophils % (A) 1 %; HCT 35.9 % (34.0-46.0); HDW 2.84; HGB 11.8 gm/dL (11.4-16.0); Luc # (Auto) 0.06; Luc % (Auto) 2; Lymphocytes # (A) 0.8 k/uL (1.0-4.8); Lymphocytes % (A) 22 %; Mean Platelet Volume 8.2; Monocytes # (A) 0.2 k/uL (0-1.0); Monocytes % (A) 4 %; Neutrophils # (A) 2.6 k/uL (1.3-7.7); Neutrophils % (A) 70 %; RDW 12.9 % (11.5-15.5); WBC 3.7 k/uL (3.8-10.6)
[2017-01-13 07:59] LABS: ALT 23 U/L (9-52); AST 15 U/L (14-36); Alkaline Phosphatase 50 U/L (38-126); Anion Gap 8 mmol/L; Blood Urea Nitrogen 12 mg/dL (7-17); Calcium 8.3 mg/dL (8.4-10.2); Carbon Dioxide 26 mmol/L (22-30); Chloride 110 mmol/L (98-107); Glucose 85 mg/dL (74-99); Non-African American GFR(MDRD) >60 (>60 ml/min/1.73 sqM); Potassium 3.6 mmol/L (3.5-5.1); Sodium 144 mmol/L (137-145); Total Bilirubin 0.5 mg/dL (0.2-1.3); Total Protein 5.8 g/dL (6.3-8.2)
[2017-01-13] MEDS: NICOTINE 14MG/24HR PATCH TRANSDERM SCH (08:37)
--- NOTE | 2017-01-13 09:23 | EEG ---
DATE OF SERVICE: 01/12/2017 INDICATIONS FOR EXAMINATION: This patient is a 61-year-old female admitted with acute diplopia. Patient with probable brain stem stroke. AGE: 61Y EEG FINDINGS: A routine 21-channel, awake digital EEG recording was accomplished utilizing the 10 to 20 international system with bipolar and referential montages. The background activity in the most alert resting state consists of a low to medium amplitude, fairly well-developed and well-sustained 7 to 8 Hz activity over the posterior head regions. This posterior rhythm attenuates to eye opening. There is a small amount of low amplitude 18 to 20 Hz beta activity seen maximally over the anterior head regions. Muscle and movement artifact was observed on a few occasions during the tracing. No activation procedures were performed. No epileptiform discharges were seen. IMPRESSION: This EEG is within normal limits for the patient's age. The EEG failed to reveal any focal, lateralized or epileptiform abnormalities. Clinical correlation is recommended.
[2017-01-13] MEDS ORDERED: MIDAZOLAM 2 MG/2 ML VIAL ONE (10:07)
[2017-01-13] MEDS ORDERED: fentaNYL (PF) 50 MCG/ML 2 ML AMP ONE (10:07)
[2017-01-13] MEDS: BENZOCAINE SPRAY 100 APPLIC/CAN MUCOUS MEM ONE ×2 (10:19→10:32)
[2017-01-13] MEDS ORDERED: SODIUM CHLORIDE 0.9% 500 ML IV ONE (10:27)
[2017-01-13] MEDS ORDERED: MIDAZOLAM 2 MG/2 ML VIAL IV ONE (10:32)
--- NOTE | 2017-01-13 11:01 | ECHOT ---
DATE OF SERVICE: CLINICAL INFORMATION: PROCEDURE: Transesophageal echo. INDICATION: Cerebrovascular accident. PROCEDURE NOTE: After obtaining informed consent, transesophageal echocardiogram is performed in the left lateral position using an Omni plane probe. Local and IV sedation were obtained using Xylocaine spray and 2 mg of Versed. Patient tolerated the procedure well without any obvious immediate complications. FINDINGS: 1. There is no intracardiac thrombus within the left atrial appendage, left atrium, right atrium, right ventricle. 2. Left ventricle has normal size and systolic function. 3. There is no evidence of [id number] shunt by color flow Doppler or [id number] shunt by agitated saline contrast study. 4. Mitral valve shows trace mitral regurgitation. 5. Aortic valve is free of stenosis or regurgitation. 6. Tricuspid valve appears normal. 7. Aorta is free of atherosclerotic changes. PLAN: No intracardiac source of thromboembolic CVA on this patient.
[2017-01-13] MEDS: LEVOTHYROXINE 112 MCG TAB PO SCH (11:39)
[2017-01-13] MEDS: buPROPion XL 300 MG TAB.ER.24H PO SCH (11:39)
--- NOTE | 2017-01-13 16:28 | P.CONS ---
History of Present Illness - Chief Complaint Gait disturbance - History of Present Illness I had the option see patient for inpatient rehab consultation with regard to gait disturbance. She was admitted to [facility] January 11 with acute onset headache and visual motor disturbance, diplopia. Given diagnosis of ocular motor III nerve palsy bilateral. Noted angiogram CT was negative but did demonstrate some atherosclerosis. Head CT demonstrated nonspecific white matter change. MRA/MRI demonstrated right david infarct as well as moderate diffuse atrophy. Chest x-ray negative. Seen by Dr. Sheela Rangel for the stroke. PT reports minimal assistance for bed mobility. Supervision for transfers and gait 100 feet with roller walker or standard cane. Previous function was: As elicited from patient corroborative by . 61- year-old right-handed white female who is lives in one floor home with . Also son. Works full-time in factory. Smokes a pack per day but doesn't drink or do recreational drugs. Patient independent with standing shower, gait without device. Shares the cooking with . Does not most of the laundry. does most of the driving but patient can drive to work. Regular doctor is Dr. Coughlin. Family history of stroke in father and mother with emphysema. Review of Systems Review of systems: ENT: Denies sneezes or discharge. Eyes: Double vision for which she keeps her right eye closed. Cardiac: Denies chest pain or palpitation. Pulmonary: Denies cough or shortness of breath. Breast: Denies discharge or lumps. Gastrointestinal: Denies nausea, emesis, constipation, diarrhea. Genitourinary: Denies discharge or frequency. Musculoskeletal: Denies muscle or bone aches. Neurologic: Mild weakness in both legs. Endocrine: Denies shakes or sweats. Oncology: Denies cancers. Dermatologic: Denies rash, itching, pruritus. ALLERGY/immunology: Denies sneezes, rashes. Past Medical History Past Medical History: Deep Vein Thrombosis (DVT), Hypertension, Rheumatoid Arthritis (RA), Thyroid Disorder Additional Past Medical History / Comment(s): HX OF DVT IN LEG. 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 SMOKING FOR 32 YEARS. Past Drug Use History: None Reported - Past Family History Son(s) Family Medical History: Cancer Additional Family Medical History / Comment(s): NEUROBLASTOMA Medications and Allergies Home Medications Medication Instructions Recorded Confirmed Type ALPRAZolam [Xanax] 1 mg PO HS 12/25/15 01/11/17 History Levothyroxine Sodium [Synthroid] 112 mcg PO DAILY 12/25/15 01/11/17 History Metoprolol Succinate [Toprol XL] 50 mg PO DAILY@1700 12/25/15 01/11/17 History buPROPion HCL [Wellbutrin XL] 300 mg PO DAILY 12/25/15 01/11/17 History traZODone HCL [Desyrel] 100 mg PO HS 12/25/15 01/11/17 History Allergies Allergy/AdvReac Type Severity Reaction Status Date / Time No Known Allergies Allergy Verified 01/11/17 13:18 Physical Exam Vitals: Vital Signs Temp Pulse Resp BP Pulse Ox 01/13/17 15:43 97.7 F 61 18 125/65 96 01/13/17 13:27 94 L 01/13/17 12:00 56 L 01/13/17 11:32 98.5 F 56 L 16 144/80 94 L 01/13/17 11:17 62 18 146/76 93 L 01/13/17 11:02 98.6 F 65 16 132/70 94 L 01/13/17 08:00 98 F 53 L 14 122/71 97 01/13/17 03:42 67 18 01/13/17 00:00 42 L 17 01/12/17 20:00 49 L 16 Intake and Output 01/13/17 01/13/17 01/13/17 06:59 14:59 22:59 Intake Total 0 45 Balance 0 45 Intake: IV 45 Invasive Line 4 20 Oral 0 Other: Voiding Method Toilet Toilet # Voids 1 1 Weight 71.8 kg Skin: Good color, texture, turgor. General: Medium build and comfortable appearance. Head: Normocephalic, atraumatic. Eyes: Symmetric. Pupils equal round. Ears: Symmetric. Hearing within normal limits. Mouth: Clear. Neck: Supple. Carotid without bruit. Cardiac: Regular rate and rhythm. Lungs: Clear anteriorly and posteriorly. Abdomen: Soft active nontender. Extremities: Normal tone. Neurological: Mental status: Alert, cooperative, pleasant. Cranial nerves: Asymmetry or weakness noted in right orbicularis and left mouth. Motor: Normal strength and isolation all 4 limbs. Sensation: Intact throughout. DTRs: Symmetric and equal throughout. Mobility: Sits and stands without assistance or verbal cueing or loss of balance. Back into bed with same. Results CBC & Chem 7: 01/13/17 06:42 01/13/17 06:42 Labs: Abnormal Lab Results - Last 24 Hours (Table) 01/13/17 01/13/17 Range/Units 06:42 06:42 WBC 3.7 L (3.8-10.6) k/uL RBC 3.70 L (3.80-5.40) m/uL Plt Count 131 L (150-450) k/uL Lymphocytes # 0.8 L (1.0-4.8) k/uL Chloride 110 H (98-107) mmol/L Calcium 8.3 L (8.4-10.2) mg/dL Total Protein 5.8 L (6.3-8.2) g/dL Albumin 2.6 L (3.5-5.0) g/dL Chest x-ray: report reviewed (Negative or no active disease.) CT Scan - head: report reviewed (Nonspecific white matter change.) MRI - head: report reviewed (MRI/MRA with right david infarct and moderate diffuse atrophy.) Assessment and Plan Plan: Impression: 1. Gait disturbance. 2. Brainstem stroke, right david. 3. Oculomotor III nerve palsy bilateral. 4. Hypertension. 5. History of DVT. 6. Rheumatoid arthritis. Comments and plan: At this time patient and preference her to take patient home. I admitted both aware the patient requires hands on assistance when standing and/or walking. Should also uses walker for safely currently. Would recommend home therapies currently. Have also discussed patient not to drive and state law with regard to a six-month hiatus from driving.
[2017-01-13] MEDS: METOPROLOL SUCCINATE (ER) 50 MG TAB.ER.24H PO SCH (17:20)
--- NOTE | 2017-01-13 18:44 | P.PN ---
Subjective This patient is a 61 year old female admitted yesterday for diplopia and mutiple falls at home. She was seen in neurology consultation yesterday and showed neurological clinical signs of probable brainstem stroke. The patient was sent for MRI/MRA brain today for further evaluation. MRI of the brain was completed today and did reveal evidence of a lacunar infarction in the pontine region of the brain stem. This was more noticeable on the right of midline. There was moderate degree of diffuse cerebral atrophy and chronic white matter ischemic changes noted as well. MRA failed to reveal any evidence of aneurysm. The results of the MRI and MRA were reviewed today with the patient. Cardiology was consult today for further evaluation of cardiac source for her stroke. She is being considered for possibility of paroxysmal atrial fibrillation. She may require a loop recorder as well as a YESSICA procedure. We will await further recommendations from cardiology. Patient's ocular findings have shown no significant improvement from yesterday. She may benefit from patching the eye during the day. We would recommend to consider placing this patient on dual platelet therapy with aspirin and Plavix. We will await the results of her cardiac workup and we will give further recommendations. All test results were reviewed today with the patient in detail. She has been updated on the MRI findings of acute brainstem stroke. Patient was seen by ophthalmology today and was confirmed to have evidence of brainstem stroke with intranuclear ophthalmoplegia. She also underwent YESSICA procedure today which came back negative for any intracardiac source of thromboembolic stroke. We reviewed all of these results once again with the patient. She is to follow-up in the outpatient ophthalmology clinic. We would recommend she consider patching the eye intermittently. We will continue close neurological follow-up for the patient during this admission. Her overall condition remains guarded at this time. Objective - Vital Signs Vital signs: Vital Signs Temp 97.7 F 01/13/17 15:43 Pulse 61 01/13/17 15:43 Resp 18 01/13/17 15:43 BP 125/65 01/13/17 15:43 Pulse Ox 96 01/13/17 15:43 Intake & Output 01/12/17 01/13/17 01/13/17 18:59 06:59 18:59 Intake Total 190 0 645 Balance 190 0 645 Weight 72.3 kg 71.8 kg Intake: IV 10 45 Invasive Line 3 10 Invasive Line 4 20 Oral 180 0 600 Other: Voiding Method Toilet Toilet # Voids 1 1 1 # Bowel Movements 0 - Exam Physical Examination: PHYSICAL EXAMINATION: Patient is resting comfortably in bed. VITAL SIGNS: Blood pressure is [125/65]. Heart rate is [61]. Respiration is [18] . Temperature is [97.7]. HEENT: Head is atraumatic, neck is supple, there were no carotid bruits. CHEST: Lungs are clear to auscultation and percussion. CARDIAC: S1, S2 normal rate and rhythm. There is no murmur. ABDOMEN: Soft and nontender. Bowel sounds are present. EXTREMITIES: There is no pedal edema. Peripheral pulses are present. Neurological examination: Patient's neurological examination is unchanged from yesterday. Specifically her eye findings remain significant with evidence of bilateral medial rectus weakness. This is consistent with MRI findings of pontine stroke. - Labs CBC & Chem 7: 01/13/17 06:42 01/13/17 06:42 Labs: Abnormal Lab Results - Last 24 Hours (Table) 01/13/17 01/13/17 Range/Units 06:42 06:42 WBC 3.7 L (3.8-10.6) k/uL RBC 3.70 L (3.80-5.40) m/uL Plt Count 131 L (150-450) k/uL Lymphocytes # 0.8 L (1.0-4.8) k/uL Chloride 110 H (98-107) mmol/L Calcium 8.3 L (8.4-10.2) mg/dL Total Protein 5.8 L (6.3-8.2) g/dL Albumin 2.6 L (3.5-5.0) g/dL Assessment and Plan (1) Brainstem stroke Status: Acute Code(s): I63.9 - CEREBRAL INFARCTION, UNSPECIFIED (2) Headache Status: Acute Code(s): R51 - HEADACHE (3) Third nerve palsy of both eyes Status: Acute Code(s): H49.03 - THIRD [OCULOMOTOR] NERVE PALSY, BILATERAL Plan: This patient is a 61-year-old female who was brought into the emergency room after having a 5 day history of multiple falls and weakness. Patient also had severe headache 2 days ago as well as sudden onset of diplopia. The diplopia started 2 days prior to her admission. She was brought in to her primary care physician's office for initial evaluation last week. She was recommended to undergo some testing. Her symptoms worsen today and her brought her to the emergency room. She was seen in the ER by Dr. Campbell. She was recommended to undergo a lumbar puncture to rule out subarachnoid hemorrhage due to her headaches. The patient declined and refused LP procedure and was admitted to Hospital. Her neurological examination at this time suggest brainstem stroke. We have recommended that she undergo an MRI/MRA of the brain for further evaluation. We will hold off on aspirin until results of the MRI MRA are available tomorrow. Patient may benefit from patching the eye alternatively due to her onset of diplopia. Would also consider ophthalmology consultation. We have recommended a complete stroke evaluation for the patient. Her overall prognosis at this time remains very guarded. Case was discussed at length with the patient and her at bedside. All of their questions were answered. The patient underwent MRI/MRA of the brain today. Results are as noted above. MRI of the brain does reveal evidence of a pontine stroke. This would explain her visual deficits at this time. She was seen by cardiology for further evaluation of cardiac source of stroke. She is being considered for YESSICA procedure as well as loop recorder for further evaluation of cryptogenic stroke. We will continue close neurological follow-up of this patient during this admission. She may be a very good candidate for dual platelet therapy with Plavix and aspirin. We will wait to see the results of her cardiac workup and we'll give further recommendations. Patient underwent YESSICA procedure today which came back negative for any evidence of PFO or intracardiac source of thrombus. She was also seen by ophthalmology and was felt to have evidence of bilateral internuclear ophthalmoplegia secondary to her brainstem stroke. The patient and her were updated on all of the neurological findings today. Patient is being evaluated for inpatient rehab at [facility]. We will continue close neurological follow-up of this patient during this admission. Her overall prognosis at this time remains guarded.
[2017-01-13] MEDS: traZODone HCL 100 MG TAB PO SCH (20:42)
[2017-01-13] MEDS: ALPRAZolam 0.5 MG TAB PO SCH (23:27)
--- NOTE | 2017-01-13 23:38 | P.PN ---
Subjective Principal diagnosis: stroke, double vision, abnormal balance and gait, debility, hypertension, h 61-year-old female one of Dr. Coughlin's patient with past medical history of hypertension hypothyroidism depression history of rheumatoid arthritis COPD and previous history of deep venous thrombosis who smoke 1 pack daily for 32 years was doing well until 3 days earlier when developed to have severe dizziness abnormal balance and gait multiple fall and double vision symptoms become much worse over the last 48 hours with her episode of falling many times with her abnormal balance and the double vision ended up coming to the emergency department at [facility] with you in her was seen and evaluated CT of the brain did not show any bleed at the time. Patient had CTA of the neck was negative for any major stenosis. With her current symptoms consistent with CVA most likely the brain stem or cerebellum patient was admitted to the hospital consult neurology and will be going for echocardiogram possible transesophageal echocardiogram with neuro exam will need most likely ophthalmology consultation. 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 And according to ophthalmology it's self-limited most of the time. Patient ended up seeing cardiology and end up going for YESSICA finding work not consistent with any thrombus or abnormality no patent valentin ovale. Patient still awaiting for loop monitor. We'll consult physiatry and continue PTOT and prepare hopefully for home or rehab by tomorrow. Objective - Vital Signs Vital signs: Vital Signs Temp 98.5 F 01/13/17 11:32 Pulse 56 L 01/13/17 12:00 Resp 16 01/13/17 11:32 BP 144/80 01/13/17 11:32 Pulse Ox 94 L 01/13/17 13:27 Intake & Output 01/12/17 01/13/17 01/13/17 18:59 06:59 18:59 Intake Total 190 0 45 Balance 190 0 45 Weight 72.3 kg 71.8 kg Intake: IV 10 45 Invasive Line 3 10 Invasive Line 4 20 Oral 180 0 Other: Voiding Method Toilet Toilet # Voids 1 1 # Bowel Movements 0 - Constitutional General appearance: Present: cooperative, no acute distress - EENT Eyes: Present: abnormal pupil, normal appearance. Absent: anicteric sclerae, disc margins sharp, edentulous, EOMI, PERRLA, fundus normal, photophobia, dentition normal, poor dentition, ptosis, scleral icterus ENT: Present: normal oropharynx. Absent: hard of hearing, hearing grossly normal, NA/AT, other, pharyngeal erythema, thrush, tonsillar exudates, tonsillar swelling Ears: bilateral: normal - Neck Neck: Present: normal ROM. Absent: lymphadenopathy, other, rigidity, stridor, thyromegaly Carotids: bilateral: upstroke normal Thyroid: bilateral: normal size - Respiratory Respiratory: bilateral: CTA, diminished - Cardiovascular Rhythm: regular Heart sounds: normal: S1, S2 - Gastrointestinal General gastrointestinal: Present: decreased bowel sounds, normal bowel sounds, soft. Absent: absent bowel sounds, distended, hepatomegaly, hyperactive bowel sounds, organomegaly, rigid, scaphoid, splenomegaly, tenderness, umbilical hernia, ventral hernia - Integumentary Integumentary: Present: normal, pale, rash. Absent: calor, cellulitis, cyanotic , decreased turgor, flushed, jaundiced, normal turgor, ulcer - Neurologic Neurologic: Present: CNII-XII intact - Musculoskeletal Musculoskeletal: Present: gait normal, generalized weakness - Psychiatric Psychiatric: Present: A&O x's 3, appropriate affect - Labs CBC & Chem 7: 01/13/17 06:42 01/13/17 06:42 Labs: Abnormal Lab Results - Last 24 Hours (Table) 01/13/17 01/13/17 Range/Units 06:42 06:42 WBC 3.7 L (3.8-10.6) k/uL RBC 3.70 L (3.80-5.40) m/uL Plt Count 131 L (150-450) k/uL Lymphocytes # 0.8 L (1.0-4.8) k/uL Chloride 110 H (98-107) mmol/L Calcium 8.3 L (8.4-10.2) mg/dL Total Protein 5.8 L (6.3-8.2) g/dL Albumin 2.6 L (3.5-5.0) g/dL Assessment and Plan Plan: 1 CVA: Still have significant residual with abnormal balance and gait and more ophthalmology symptoms consistent Webino syndrome will continue PTOT physiatry and continue workup for the type of thrombus patient had to create this CVA which patient ended up going for YESSICA and will require loop monitor. 2 double vision and severe abnormal vision: Patient be seen ophthalmology might need eyepatch, Webino syndrome was diagnosed patient will have an eye patch and continue PTOT. 3 hypertension: Remain on metoprolol XL 50 mg daily Will add clonidine 0.1 mg every 6 hour for systolic above 160. 4 hypothyroidism: Patient is doing well on levothyroxine 112 g daily continue medication. 5 depression: Has been on Wellbutrin XL 300 mg daily and Desyrel 100 mg daily at bedtime. 6 arrhythmia: Possibility of nonsustained A. fib, we'll consult cardiology and patient might require loop monitor if needed YESSICA will be done. 7 chronic smoking: Patient be on nicotine patch 14 mg daily. 8 GERD/GI prophylaxis: Patient will be on Pepcid 20 mg daily. 9 debility and severe abnormal balance and gait with multiple falls: Patient will be seen PT OT will consult physiatry for possible need for inpatient or outpatient rehab. Discharge planning: Might be going home tomorrow with home care and PTOT.
[2017-01-14] MEDS: SODIUM CHLORIDE 0.9% 1,000 ML IV SCH ×3 (00:21→12:17)
[2017-01-14] MEDS: LEVOTHYROXINE 112 MCG TAB PO SCH (06:23)
[2017-01-14] MEDS: IBUPROFEN 600 MG TAB PO PRN (06:28)
[2017-01-14 06:50] LABS: ALT 27 U/L (9-52); AST 17 U/L (14-36); Alkaline Phosphatase 51 U/L (38-126); Anion Gap 9 mmol/L; Blood Urea Nitrogen 10 mg/dL (7-17); Calcium 7.9 mg/dL (8.4-10.2); Carbon Dioxide 24 mmol/L (22-30); Chloride 107 mmol/L (98-107); Glucose 101 mg/dL (74-99); Non-African American GFR(MDRD) >60 (>60 ml/min/1.73 sqM); Potassium 3.7 mmol/L (3.5-5.1); Sodium 140 mmol/L (137-145); Total Bilirubin 0.7 mg/dL (0.2-1.3); Total Protein 6.2 g/dL (6.3-8.2)
[2017-01-14 06:53] LABS: Basophils % (A) 1 %; CH 32.9; CHCM 35.2; Eosinophils % (A) 0 %; HCT 36.7 % (34.0-46.0); HDW 2.77; HGB 12.5 gm/dL (11.4-16.0); Luc # (Auto) 0.07; Luc % (Auto) 1; Lymphocytes # (A) 0.8 k/uL (1.0-4.8); Lymphocytes % (A) 16 %; MCHC 34.1 g/dL (31.0-37.0); MCV 93.9 fL (80.0-100.0); Mean Platelet Volume 9.4; Monocytes # (A) 0.4 k/uL (0-1.0); Monocytes % (A) 8 %; Neutrophils # (A) 3.7 k/uL (1.3-7.7); Neutrophils % (A) 75 %; RDW 12.9 % (11.5-15.5); WBC (Perox) 5.17
--- NOTE | 2017-01-14 08:04 | P.PN ---
Subjective This patient is a 61-year-old female who was admitted to hospital after having multiple falls at home due to weakness as well as sudden onset of diplopia. Neurology was consult today and we did order a full stroke workup. MRI/MRA of the brain was completed. MRI reveals evidence of a brainstem stroke in the david. She was seen by ophthalmology and is noted to have evidence of bilateral intranuclear ophthalmoplegia. They're recommending eyepatch with the patient. Patient underwent YESSICA procedure which came back negative for any intracardiac source of thromboembolic stroke. She is to continue on dual platelet therapy. Patient states she is feeling better and is anticipating discharge later today. She may follow-up in the outpatient neurology clinic in 3-4 weeks. Objective - Vital Signs Vital signs: Vital Signs Temp 97.4 F L 01/14/17 04:00 Pulse 65 01/14/17 04:00 Resp 18 01/14/17 04:00 BP 142/72 01/14/17 04:00 Pulse Ox 96 01/14/17 04:00 Intake & Output 01/13/17 01/14/17 01/14/17 18:59 06:59 18:59 Intake Total 645 Balance 645 Weight 73.028 kg Intake: IV 45 Invasive Line 4 20 Oral 600 Other: Voiding Method Toilet Toilet # Voids 1 0 - Exam Physical Examination: PHYSICAL EXAMINATION: Patient is resting comfortably in bed. VITAL SIGNS: Blood pressure is [142/72]. Heart rate is [65]. Respiration is [18] . Temperature is [97.4]. HEENT: Head is atraumatic, neck is supple, there were no carotid bruits. CHEST: Lungs are clear to auscultation and percussion. CARDIAC: S1, S2 normal rate and rhythm. There is no murmur. ABDOMEN: Soft and nontender. Bowel sounds are present. EXTREMITIES: There is no pedal edema. Peripheral pulses are present. Neurological examination: Patient's neurological examination is unchanged from yesterday. Specifically her eye findings remain significant with evidence of bilateral medial rectus weakness. This is consistent with MRI findings of pontine stroke. - Labs CBC & Chem 7: 01/14/17 05:42 01/14/17 05:42 Labs: Abnormal Lab Results - Last 24 Hours (Table) 02/14/17 02/15/17 02/15/17 Range/Units 06:42 05:42 05:42 Plt Count 125 L (150-450) k/uL Lymphocytes # 0.8 L (1.0-4.8) k/uL Chloride 110 H (98-107) mmol/L Glucose 101 H (74-99) mg/dL Calcium 8.3 L 7.9 L (8.4-10.2) mg/dL Total Protein 5.8 L 6.2 L (6.3-8.2) g/dL Albumin 2.6 L 2.8 L (3.5-5.0) g/dL Assessment and Plan (1) Brainstem stroke Status: Acute Code(s): I63.9 - CEREBRAL INFARCTION, UNSPECIFIED (2) Headache Status: Acute Code(s): R51 - HEADACHE (3) Third nerve palsy of both eyes Status: Acute Code(s): H49.03 - THIRD [OCULOMOTOR] NERVE PALSY, BILATERAL Plan: This patient is a 61-year-old female was initially admitted to hospital with history of multiple falls and diplopia. Neurology was consult didn't we've recommended a complete stroke evaluation. She underwent an MRI/MRA of the brain for further evaluation. MRI does reveal evidence of a brainstem stroke involving the david. She was noted to have evidence of bilateral intranuclear ophthalmoplegia and was evaluated by ophthalmology. They're recommending eyepatch with the patient. Patient underwent YESSICA procedure which came back negative for any intracardiac source of embolic stroke. She is to continue on dual platelet therapy. Patient is being considered for discharge home possibly later today. She may follow-up in the outpatient neurology clinic in 3-4 weeks. Her overall prognosis at this time remains guarded.
[2017-01-14] MEDS: buPROPion XL 300 MG TAB.ER.24H PO SCH (08:15)
[2017-01-14] MEDS: NICOTINE 14MG/24HR PATCH TRANSDERM SCH (08:15)
[2017-01-14 11:07] VITALS: BP 123/65; PULSE 52; RESP 14; TEMP 97.9
--- NOTE | 2017-01-27 15:10 | P.DS ---
Providers Date of admission: 01/11/17 13:00 Expected date of discharge: 01/14/17 Attending physician: Madeline Lr Consults: 01/12/17 12:45 Consult Physician Routine Consulting Provider: Derick Delgado Consult Reason/Comments: Double Vision Do you want consulting provider notified?: Yes 01/12/17 12:46 Consult Physician Routine Consulting Provider: Sonu Mejia Consult Reason/Comments: possible A fib might need Loop Do you want consulting provider notified?: Yes 01/13/17 11:15 Consult Physician Routine Consulting Provider: Red Austin Consult Reason/Comments: CVA Do you want consulting provider notified?: Yes [facility]: 61-year-old female one of Dr. Coughlin's patient with past medical history of hypertension hypothyroidism depression history of rheumatoid arthritis COPD and previous history of deep venous thrombosis who smoke 1 pack daily for 32 years was doing well until 3 days earlier when developed to have severe dizziness abnormal balance and gait multiple fall and double vision symptoms become much worse over the last 48 hours with her episode of falling many times with her abnormal balance and the double vision ended up coming to the emergency department at [facility] with you in her was seen and evaluated CT of the brain did not show any bleed at the time. Patient had CTA of the neck was negative for any major stenosis. With her current symptoms consistent with CVA most likely the brain stem or cerebellum patient was admitted to the hospital consult neurology and will be going for echocardiogram possible transesophageal echocardiogram with neuro exam will need most likely ophthalmology consultation. 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 And according to ophthalmology it's self-limited most of the time. Patient ended up seeing cardiology and end up going for YESSICA finding work not consistent with any thrombus or abnormality no patent valentin ovale. Patient still awaiting for loop monitor. We'll consult physiatry and continue PTOT and prepare hopefully for home or rehab by tomorrow. 01/14: Patient has decided to go home despite recommendations for subacute rehab. Patient will be discharged home in stable condition. Discharge diagnoses: 1 CVA due to thrombosis 2 double vision and severe abnormal vision 3 hypertension: 4 hypothyroidism: 5 depression recurrent 6 arrhythmia: Possibility of nonsustained A. fib 7 chronic smokin GERD 9 debility and severe abnormal balance and gait with multiple falls: Impression and plan of care have been directed as dictated by the signing physician. Soraida Pedersen nurse practitioner acting as scribe for signing physician. Cc: Dr. Pradhan Patient Condition at Discharge: Good Plan - Discharge Summary New Discharge Prescriptions: Aspirin 81 mg PO DAILY #30 chewable Clopidogrel Bisulfate [Plavix] 75 mg PO DAILY #30 tab Nicotine 14Mg/24Hr Patch [Habitrol] 1 patch TRANSDERM DAILY #30 patch Discharge Medication List Levothyroxine Sodium [Synthroid] 112 mcg PO DAILY 12/25/15 [History] Metoprolol Succinate [Toprol XL] 50 mg PO DAILY@1700 12/25/15 [History] buPROPion HCL [Wellbutrin XL] 300 mg PO DAILY 12/25/15 [History] traZODone HCL [Desyrel] 100 mg PO HS 12/25/15 [History] Acetaminophen Tab [Tylenol] 650 mg PO Q4HR PRN #0 tab 01/14/17 [Rx] Aspirin 81 mg PO DAILY #30 chewable 01/14/17 [Rx] Clopidogrel Bisulfate [Plavix] 75 mg PO DAILY #30 tab 01/14/17 [Rx] Nicotine 14Mg/24Hr Patch [Habitrol] 1 patch TRANSDERM DAILY #30 patch 01/14/17 [ Rx] ALPRAZolam [Xanax] 1 mg PO HS #30 tablet 01/20/17 [Rx] Atorvastatin [Lipitor] 20 mg PO DAILY tab 01/20/17 [Rx] Famotidine [Pepcid] 20 mg PO BID tab 01/20/17 [Rx] Amoxic-Pot Clav 875-125Mg [Augmentin 875-125] 1 each PO Q12HR #28 tab 01/26/17 [ Rx] Fluticasone Nasal [place] [Flonase Nasal [place]] 2 spray EA NOSTRIL DAILY spr [Rx] Meclizine [Antivert] 25 mg PO TID tab 01/26/17 [Rx] Follow up Appointment(s)/Referral(s): Bere Pradhan MD [Primary Care Provider] - 1-2 days [facility], [NON-STAFF] - Activity/Diet/Wound Care/Special Instructions: Sudarshan [facility] [phone] (to be delivered to room prior to discharge) Discharge Disposition: HOME WITH HOME HEALTH SERVICES
== END 2017-01-14 13:36 | disposition home health service (06) | DRG 66 ==
LOC: EC 10:13 → 6SEL 13:00 → MERGE 13:00 → 6SEL 13:46
PROVIDERS: ADMIT Family Medicine; ATTEND Family Medicine
DX: I63.9 Cerebral infarction, unspecified (principal); I10 Essential (primary) hypertension; F32.9 Major depressive disorder, single episode, unspecified; E03.9 Hypothyroidism, unspecified; R53.1 Weakness; F17.210 Nicotine dependence, cigarettes, uncomplicated; F41.9 Anxiety disorder, unspecified; H51.23 Internuclear ophthalmoplegia, bilateral; R29.6 Repeated falls; J44.9 Chronic obstructive pulmonary disease, unspecified; M06.9 Rheumatoid arthritis, unspecified; R26.9 Unspecified abnormalities of gait and mobility; R32 Unspecified urinary incontinence; R51 Headache; Z79.899 Other long term (current) drug therapy
CPT/HCPCS: 36415; 70450; 70496; 70498; 70544; 70553; 71020; 80053; 82550; 82553; 84484; 85025; 85610; 85730; 87502; 93005; 93306; 93312; 93320; 93325; 94760; 95819; 96361; 96374; 99285

== ENCOUNTER 2017-01-17 19:01 | Inpatient (IN) | payer BC ==
[2017-01-17] MEDS ORDERED: SODIUM CHLORIDE 0.9% 1,000 ML IV STA (19:39)
--- NOTE | 2017-01-17 19:50 | ED ---
General Adult HPI - General Chief complaint: Weakness Stated complaint: FEVER/WEAKNESS Time Seen by Provider: 01/17/17 19:22 Source: patient, family, RN notes reviewed, old records reviewed Mode of arrival: EMS Limitations: no limitations - History of Present Illness Initial comments: Chief complaint and history of present illness a 61-year-old female who was in hospital up until 3 days ago. The patient was sent home to be cared for by her . He now reports is not able take care of her because she's not been able to move today. Due to extreme dizziness and inability stand and ambulate with the walker. Proms started approximately 7 days ago when the patient had decreased visual acuity increased weakness and frequent falls. Workup found the patient had a brainstem stroke. The had hoped tibial to care for his at home but he is not able to. Patient had 2 short episodes of vomiting today complains of dizziness when she goes from a laying to sitting position lateral alone standing. She did fall backwards into the chair when they tried to grease remover this morning. - Related Data Home Medications Medication Instructions Recorded Confirmed ALPRAZolam [Xanax] 1 mg PO HS 12/25/15 01/17/17 Levothyroxine Sodium [Synthroid] 112 mcg PO DAILY 12/25/15 01/17/17 Metoprolol Succinate [Toprol XL] 50 mg PO DAILY@1700 12/25/15 01/17/17 buPROPion HCL [Wellbutrin XL] 300 mg PO DAILY 12/25/15 01/17/17 traZODone HCL [Desyrel] 100 mg PO HS 12/25/15 01/17/17 Previous Rx's Medication Instructions Recorded Acetaminophen Tab [Tylenol] 650 mg PO Q4HR PRN #0 tab 01/14/17 Aspirin 81 mg PO DAILY #30 chewable 01/14/17 Clopidogrel Bisulfate [Plavix] 75 mg PO DAILY #30 tab 01/14/17 Nicotine 14Mg/24Hr Patch [Habitrol] 1 patch TRANSDERM DAILY #30 patch 01/14/17 Allergies Allergy/AdvReac Type Severity Reaction Status Date / Time No Known Allergies Allergy Verified 01/17/17 20:22 Review of Systems ROS Statement: Those systems with pertinent positive or pertinent negative responses have been documented in the HPI. Patient's denying headache or chest pain or shortness of breath or GI/ problems other than vomiting a small amount twice today on either drinking much appears to be dry with dry lips and tongue. Patient continues to have double vision. She has a patch on the right eye and was told to move the past from what I do the other over the period of time at home. Her balance is off she was better yesterday day after discharge and she is today per patient and . Patient has not smoked the past week. All systems reviewed past medical problems chronic pain, fatigue, malaise decreased appetite and generalized weakness or balance otherwise denying any chills or headaches no sweats. For the past 6-7 days she's had diplopia with mild photophobia. Asked medical problems significant for DVT, hypertension, RA, and hypothyroidism. The patient's surgeries include appendectomy, bladder surgery cholecystectomy hysterectomy and tonsillectomy. Other surgeries include cataracts, thyroidectomy. Medical problems include anxiety depression currently on medications. Long time smoker quit 6 days ago. Family history positive for neuroblastoma. ROS Other: All systems not noted in ROS Statement are negative. 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 SMOKING FOR 32 YEARS. Past Drug Use History: None Reported - Past Family History Son(s) Family Medical History: Cancer Additional Family Medical History / Comment(s): NEUROBLASTOMA General Exam - General Exam Comments Initial Comments: General: The patient is awake complains appears fatigued. States she's dizzy when she goes from a lying to us sitting position when she tried to stand at home with assistance already used the walker she was unable to she fell back into the chair without injuring herself. Vital signs are temperature 100.6 pulse 74 respiratory rate 20 pulse ox 94% room air blood pressure 140/64. Mildly elevated systolic noted. Patient will be seen by her family physician in emergency room. Eye: Bilateral cataract surgery. Right eye is covered with an eye patch. Left eye appears to be normal she reportedly has diabetes. With eye patch off. Ongoing for the past week. Recently diagnosed with brainstem stroke. Ears, nose, mouth and throat: Dry mucous membranes.. Neck: The neck is supple, there is no tenderness , evidence of appears to be thyroid surgery. Cardiovascular: There is a regular rate and rhythm. No murmur, rub or gallop is appreciated. Respiratory: Lungs are clear to auscultation, respirations are non-labored, breath sounds are equal. No wheezes, stridor, rales, or rhonchi. Gastrointestinal: Soft, non-distended, non-tender abdomen without masses or organomegaly noted. There is no rebound or guarding present. No complaint of back pain or CVA tenderness. Bowel bowel sounds essentially unremarkable. No organomegaly Back: No complaint of back pain. Musculoskeletal: Patient able to raise arms and legs against gravity. States that she's too dizzy and weak with poor balance when she tries to stand even with assistance. Unable to use her walker. Neurovascular status of the feet intact. No edema noted. Neurological: Neurologically patient had a recent brainstem stroke. Symptoms similar today as they were on discharged from hospital 3 days ago. Her weakness has increased , still with diplopia, no headache, able to raise arms off the bed against gravity able to raise legs bent knees. Push pull her feet. Skin: Skin is warm and dry and no rashes or lesions are noted. Psychiatric: History of anxiety and depression. No complaints of increased depression.. Limitations: no limitations Course Vital Signs 01/17/17 19:18 Temperature 100.6 F H Pulse Rate 74 Respiratory 20 Rate Blood Pressure 140/64 O2 Sat by Pulse 94 L Oximetry EKG Findings - EKG Comments: EKG Findings:: EKG was done and reviewed at 1919 showing a normal sinus rhythm nonspecific ischemic changes. Rate 69 DC interval was 168 QRS [address] Avila his EKG was compared to one done on that before 2016 and they' re similar. Medical Decision Making - Medical Decision Making Medical decision making the patient's white count 7.1 hemoglobin 12 hematocrit 35, INR 1.3, potassium low at 2.9 this be supplemented. BUN 14 creatinine 0.6 with a GFR greater than 60. Glucose 93 and urine clean no signs of infection. Cardiac enzymes within normal limits, troponin less than 0.012. Chest x-ray was done and reviewed by radiologist's his final impression is; no acute cardiopulmonary process. As read by Dr. Ding The patient is getting potassium supplemented IV. Case discussed with Dr. To on-call . Patient be admitted she received potassium supplements and IV Levaquin until blood cultures return. - Lab Data Result diagrams: 01/17/17 19:50 01/17/17 19:50 Lab Results 01/17/17 01/17/17 01/17/17 Range/Units 19:50 19:50 19:50 WBC 7.1 (3.8-10.6) k/uL RBC 3.81 (3.80-5.40) m/uL Hgb 12.3 (11.4-16.0) gm/dL Hct 35.8 (34.0-46.0) % MCV 94.1 (80.0-100.0) fL MCH 32.2 (25.0-35.0) pg MCHC 34.2 (31.0-37.0) g/dL RDW 12.9 (11.5-15.5) % Plt Count 174 (150-450) k/uL Neutrophils % 84 % Lymphocytes % 9 % Monocytes % 5 % Eosinophils % 0 % Basophils % 0 % Neutrophils # 6.0 (1.3-7.7) k/uL Lymphocytes # 0.7 L (1.0-4.8) k/uL Monocytes # 0.3 (0-1.0) k/uL Eosinophils # 0.0 (0-0.7) k/uL Basophils # 0.0 (0-0.2) k/uL PT (9.0-12.0) sec INR (<1.1) APTT (22.0-30.0) sec Sodium 139 (137-145) mmol/L Potassium 2.9 L* (3.5-5.1) mmol/L Chloride 101 (98-107) mmol/L Carbon Dioxide 27 (22-30) mmol/L Anion Gap 11 mmol/L BUN 14 (7-17) mg/dL Creatinine 0.65 (0.52-1.04) mg/dL Est GFR (MDRD) Af Amer >60 (>60 ml/min/1.73 sqM) Est GFR (MDRD) Non-Af >60 (>60 ml/min/1.73 sqM) Glucose 93 (74-99) mg/dL Plasma Lactic Acid Alexis (0.7-2.0) mmol/L Calcium 7.9 L (8.4-10.2) mg/dL Total Bilirubin 1.0 (0.2-1.3) mg/dL AST 14 (14-36) U/L ALT 29 (9-52) U/L Alkaline Phosphatase 53 (38-126) U/L Total Creatine Kinase <20 L (30-135) U/L CK-MB (CK-2) <0.2 (0.0-2.4) ng/mL CK-MB (CK-2) Rel Index Troponin I <0.012 (0.000-0.034) ng/mL Total Protein 6.5 (6.3-8.2) g/dL Albumin 2.9 L (3.5-5.0) g/dL Urine Color Urine Appearance (Clear) Urine pH (5.0-8.0) Ur Specific [place] (1.001-1.035) Urine Protein (Negative) Urine Glucose (UA) (Negative) Urine Ketones (Negative) Urine Blood (Negative) Urine Nitrate (Negative) Urine Bilirubin (Negative) Urine Urobilinogen (<2.0) mg/dL Ur Leukocyte Esterase (Negative) 01/17/17 01/17/17 01/17/17 Range/Units 19:50 19:50 20:49 WBC (3.8-10.6) k/uL RBC (3.80-5.40) m/uL Hgb (11.4-16.0) gm/dL Hct (34.0-46.0) % MCV (80.0-100.0) fL MCH (25.0-35.0) pg MCHC (31.0-37.0) g/dL RDW (11.5-15.5) % Plt Count (150-450) k/uL Neutrophils % % Lymphocytes % % Monocytes % % Eosinophils % % Basophils % % Neutrophils # (1.3-7.7) k/uL Lymphocytes # (1.0-4.8) k/uL Monocytes # (0-1.0) k/uL Eosinophils # (0-0.7) k/uL Basophils # (0-0.2) k/uL PT 12.5 H (9.0-12.0) sec INR 1.3 (<1.1) APTT 29.4 (22.0-30.0) sec Sodium (137-145) mmol/L Potassium (3.5-5.1) mmol/L Chloride (98-107) mmol/L Carbon Dioxide (22-30) mmol/L Anion Gap mmol/L BUN (7-17) mg/dL Creatinine (0.52-1.04) mg/dL Est GFR (MDRD) Af Amer (>60 ml/min/1.73 sqM) Est GFR (MDRD) Non-Af (>60 ml/min/1.73 sqM) Glucose (74-99) mg/dL Plasma Lactic Acid Alexis 1.0 (0.7-2.0) mmol/L Calcium (8.4-10.2) mg/dL Total Bilirubin (0.2-1.3) mg/dL AST (14-36) U/L ALT (9-52) U/L Alkaline Phosphatase (38-126) U/L Total Creatine Kinase (30-135) U/L CK-MB (CK-2) (0.0-2.4) ng/mL CK-MB (CK-2) Rel Index Troponin I (0.000-0.034) ng/mL Total Protein (6.3-8.2) g/dL Albumin (3.5-5.0) g/dL Urine Color Yellow Urine Appearance Clear (Clear) Urine pH 6.0 (5.0-8.0) Ur Specific [place] 1.020 (1.001-1.035) Urine Protein Trace H (Negative) Urine Glucose (UA) Negative (Negative) Urine Ketones 1+ H (Negative) Urine Blood Negative (Negative) Urine Nitrate Negative (Negative) Urine Bilirubin Negative (Negative) Urine Urobilinogen 6.0 (<2.0) mg/dL Ur Leukocyte Esterase Negative (Negative) Disposition Clinical Impression: History of recent stroke, Weakness due to cerebrovascular accident, Hypokalemia Disposition: ADMITTED IP TO THIS [facility] Condition: Serious
[2017-01-17] MEDS ORDERED: ACETAMINOPHEN TAB 500 MG TAB PO STA (19:58)
[2017-01-17 20:05] LABS: Basophils % (A) 0 %; CH 33.1; CHCM 35.4; Eosinophils % (A) 0 %; HCT 35.8 % (34.0-46.0); HDW 2.72; HGB 12.3 gm/dL (11.4-16.0); Luc % (Auto) 1; Lymphocytes # (A) 0.7 k/uL (1.0-4.8); Lymphocytes % (A) 9 %; MCH 32.2 pg (25.0-35.0); MCHC 34.2 g/dL (31.0-37.0); MCV 94.1 fL (80.0-100.0); Mean Platelet Volume 7.7; Monocytes # (A) 0.3 k/uL (0-1.0); Monocytes % (A) 5 %; Neutrophils % (A) 84 %; RBC 3.81 m/uL (3.80-5.40); RDW 12.9 % (11.5-15.5); WBC 7.1 k/uL (3.8-10.6); WBC (Perox) 7.14
[2017-01-17 20:12] LABS: ALT 29 U/L (9-52); AST 14 U/L (14-36); Alkaline Phosphatase 53 U/L (38-126); Anion Gap 11 mmol/L; Blood Urea Nitrogen 14 mg/dL (7-17); Calcium 7.9 mg/dL (8.4-10.2); Carbon Dioxide 27 mmol/L (22-30); Chloride 101 mmol/L (98-107); Glucose 93 mg/dL (74-99); Non-African American GFR(MDRD) >60 (>60 ml/min/1.73 sqM); Sodium 139 mmol/L (137-145); Total Protein 6.5 g/dL (6.3-8.2)
[2017-01-17 20:14] LABS: Potassium 2.9 mmol/L (3.5-5.1)
[2017-01-17 20:17] LABS: INR 1.3 (<1.1); Partial Thromboplastin Time 29.4 sec (22.0-30.0); Prothrombin Time 12.5 sec (9.0-12.0)
[2017-01-17 20:21] LABS: Creatine Kinase <20 U/L (30-135)
--- NOTE | 2017-01-17 20:28 | XR ---
EXAMINATION TYPE: XR chest 2V DATE OF EXAM: 01/17/2017 8:11 PM COMPARISON: Prior chest x-ray 11 January 2017 HISTORY: Weakness TECHNIQUE: Frontal and lateral views of the chest are obtained. FINDINGS: There is no focal air space opacity, pleural effusion, or pneumothorax seen. The cardiac silhouette size is within normal limits. There are overlying cardiac leads. The osseous structures a re intact. IMPRESSION: No acute cardiopulmonary process.
[2017-01-17] MEDS ORDERED: IBUPROFEN 600 MG TAB PO STA (20:31)
[2017-01-17 20:34] LABS: Creatine Kinase MB <0.2 ng/mL (0.0-2.4); Troponin I <0.012 ng/mL (0.000-0.034)
[2017-01-17 20:58] LABS: Appearance,Urine Clear (Clear); Bilirubin,Urine Negative (Negative); Glucose,Urine (UA) Negative (Negative); Ketones,Urine 1+ (Negative); Leukocyte Esterase,Urine Negative (Negative); Nitrite,Urine Negative (Negative); Protein,Urine Trace (Negative); UA Billing (MACRO vs. MICRO) CHEM
[2017-01-17] MEDS: POTASSIUM CHLORIDE 10 MEQ, LIDOCAINE 2% INJ 10 MG in SODIUM CHLORIDE 0.9% 100 ML IVPB SCH ×2 (22:18→23:38)
[2017-01-17] MEDS ORDERED: NALOXONE 0.4 MG/ML 1 ML VIAL IV PRN (22:18)
[2017-01-17] MEDS ORDERED: LEVOFLOXACIN 500MG-D5W PMX 500 MG in DEXTROSE/WATER 1 100ML.BAG IVPB STA (22:22)
[2017-01-17 23:09] LABS: Glucose,Whole Blood 102 mg/dL (75-99)
[2017-01-17 23:33] VITALS: BMI 26.3
[2017-01-18] MEDS ORDERED: Potassium Replacement Protocol 1 EACH MISC MISCELLANE PRN (03:55)
[2017-01-18] MEDS: POTASSIUM CHLORIDE 10 MEQ, LIDOCAINE 2% INJ 10 MG in SODIUM CHLORIDE 0.9% 100 ML IV SCH ×2 (05:08→06:19)
[2017-01-18] MEDS: SODIUM CHLORIDE 0.9% 1,000 ML IV SCH ×3 (05:08→20:10)
[2017-01-18] MEDS: FAMOTIDINE 20 MG TAB PO SCH ×2 (08:46→21:10)
[2017-01-18] MEDS: LEVOTHYROXINE 112 MCG TAB PO SCH (08:46)
[2017-01-18] MEDS: buPROPion XL 300 MG TAB.ER.24H PO SCH (08:46)
[2017-01-18] MEDS: ASPIRIN 81 MG CHEW PO SCH (09:47)
[2017-01-18] MEDS: CLOPIDOGREL 75 MG TAB PO SCH (09:47)
[2017-01-18] MEDS: NICOTINE 14MG/24HR PATCH TRANSDERM SCH (09:47)
[2017-01-18] MEDS: POTASSIUM CHLORIDE 10 MEQ, LIDOCAINE 2% INJ 10 MG in SODIUM CHLORIDE 0.9% 100 ML IVPB SCH ×2 (10:19→11:25)
[2017-01-18] MEDS: ACETAMINOPHEN TAB 325 MG TAB PO PRN ×2 (10:28→17:51)
--- NOTE | 2017-01-18 11:25 | HP ---
DATE OF ADMISSION: CHIEF COMPLAINT: Generalized weakness. HISTORY OF PRESENT ILLNESS: This is a 61-year-old female who was recently discharged from the hospital on Thursday 4 days ago due to brainstem stroke that left her with double vision and blurry vision. The patient was discharged home in stable condition, recommended to use a walker, but patient kept falling at home and suffered from generalized weakness. Patient said that after leaving the hospital, she suffered from some abdominal discomfort associated with nausea and intractable vomiting. Patient said that vomiting was severe to the point where she was not able to hold anything down, kept vomiting and limited her food intake and tried to stick to the liquids. Patient presented yesterday to the hospital where her potassium was found to be 2.9 and was admitted for generalized weakness. Patient had temperature of 100.6 that was resolved one time in the emergency department and has been afebrile since that time. Patient received one dose of Levaquin as well. Currently, patient is denying chest pain, shortness breath, nausea, vomiting, abdominal pain, dizziness, lightheadedness, or blurry vision. Said that she tolerated her breakfast without nausea and vomiting, reported no diarrhea recently or blood in the stool. REVIEW OF SYSTEMS: All 14-systems reviewed and negative except as above. MEDICATIONS: 1. Xanax 1 mg nightly. 2. Levothyroxine 112 mcg daily. 3. Metoprolol 50 mg daily. 4. Wellbutrin 300 mg daily. 5. Trazodone 100 mg nightly. 6. Tylenol as needed. 7. Aspirin 81 mg daily. 8. Plavix 75 mg daily. 9. Nicotine patch daily. ALLERGIES: No known drug allergies. PAST MEDICAL HISTORY: 1. Recent CVA. 2. History of DVT. 3. Hypertension. 4. Hypothyroidism. 5. Hypertension. 6. Insomnia. 7. Anxiety and depression. PAST SURGICAL HISTORY: 1. Appendectomy. 2. Bladder surgery. 3. Cholecystectomy. 4. Hysterectomy. 5. Tonsillectomy. 6. Thyroidectomy. 7. Bilateral cataract. SOCIAL HISTORY: Patient is current everyday smoker. Said that she has been trying to quit since she diagnosed with a stroke. No alcohol or drug abuse. FAMILY HISTORY: Positive for neuroblastoma and cancer. PHYSICAL EXAMINATION: VITAL SIGNS: Temperature 100.6, heart rate of 74, respiratory rate 20, blood pressure 140/64 and saturation is 94% on 2 L nasal cannula. Currently vital signs stable with resolution of fever over the last 3 times without any medication. GENERAL: In her stated age, in no acute distress. HEENT: Atraumatic, normocephalic. PERRLA. Patient keeps her right eye closed to help with her vision as she gets double vision when she opens both eyes. NECK: Supple, no masses. No thyromegaly. LUNGS: Clear to auscultation bilaterally. HEART: Normal S1, S2. ABDOMEN: Soft, no tenderness, positive bowel sounds in all 4 quadrants. No guarding or rebound appreciated on physical examination. LOWER EXTREMITY: No edema. PSYCH: Alert and oriented x4, but patient is a poor historian. NEURO: Cranial nerves 2 through 12 intact, positive for double vision according to the patient. IMAGING AND LABS: CBC revealed normal findings. Chem-7 revealed potassium at 2.9 but normal otherwise. Troponin was negative. CK was negative. Albumin slightly low at 2.9. PT, INR, PTT within normal limits. Lactic acid was normal. UA showed normal findings. ASSESSMENT AND PLAN: 1. Generalized weakness with frequent falls at home, etiology could be related to a viral gastroenteritis that causes her to have intractable nausea and vomiting and hypokalemia, will replace her potassium, currently it is 3.5. Will have patient eat banana to encourage her potassium storages and would replace potassium orally only for the next 24 hours. Repeat her blood work in the morning. If it is stabilized, will consider discharging patient home. 2. Viral gastroenteritis, seems to be improving. Patient tolerated diet without any nausea or vomiting. No fever reported in the last 12 hours. Blood cultures were obtained. Will monitor closely. Encourage p.o. intake. Will continue gentle hydration at this point. 3. Fever management as above. 4. Recent cerebrovascular accident. I would like to consult neurology team who took care of the patient on previous hospitalization and followup with their recommendation. 5. Hypertension, seems to be under fair control. 6. Questionable noncompliance with medication, when asked patient if she is taking statin at home, she was not sure if she is taking statin. I would like consultations during this hospital stay regarding medication adherence and start patient on Lipitor 20 mg at this point and follow up with neurology recommendation. 7. I would like to discontinue antibiotics. 8. Anxiety and depression. Will continue her home medication. 9. Insomnia, will continue home medication. 10. Tobacco dependency. Will continue Wellbutrin and continue nicotine patch. 11. Discharge planning based on clinical progress.
--- NOTE | 2017-01-18 13:23 | P.CONS ---
History of Present Illness - Reason for Consult Consult date: 01/18/17 - Chief Complaint Weakness - History of Present Illness This is a 71-year-old female being evaluated by the neurology service for some weakness. She was released about 3 days ago from the hospital after suffering a brainstem stroke. Her initial presentation then was that of multiple falls due to weakness and sudden onset of diplopia. She did undergo a transesophageal echocardiogram which was negative for an intracardiac source. She is currently on dual antiplatelet therapy. After being released home she continued to have some trouble ambulating even with her walker. She had a couple falls. Her brought her back to the emergency room to be evaluated. She has no new neurological symptoms. At the time of my exam she is resting comfortably in bed eating her lunch. 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 SMOKING FOR 32 YEARS. Past Drug Use History: None Reported - Past Family History Son(s) Family Medical History: Cancer Additional Family Medical History / Comment(s): NEUROBLASTOMA Medications and Allergies Home Medications Medication Instructions Recorded Confirmed Type ALPRAZolam [Xanax] 1 mg PO HS 12/25/15 01/17/17 History Levothyroxine Sodium [Synthroid] 112 mcg PO DAILY 12/25/15 01/17/17 History Metoprolol Succinate [Toprol XL] 50 mg PO DAILY@1700 12/25/15 01/17/17 History buPROPion HCL [Wellbutrin XL] 300 mg PO DAILY 12/25/15 01/17/17 History traZODone HCL [Desyrel] 100 mg PO HS 12/25/15 01/17/17 History Allergies Allergy/AdvReac Type Severity Reaction Status Date / Time No Known Allergies Allergy Verified 01/17/17 20:22 Physical Exam Vitals: Vital Signs Temp Pulse Resp BP Pulse Ox 01/18/17 07:00 97.6 F 55 L 16 139/63 97 01/18/17 00:00 61 16 01/17/17 23:00 97.6 F 56 L 16 105/57 96 Intake and Output 01/17/17 01/18/17 01/18/17 22:59 06:59 14:59 Intake Total 940 Output Total 350 Balance 590 Intake: IV 600 Sodium Chloride 0.9% 1, 600 000 ml @ 100 mls/hr IV . Q10H [facility] Rx#:[id number] Oral 340 Output: Urine 350 Other: Voiding Method Bedpan Bedpan Diaper Diaper # Voids 2 Weight 69.5 kg - Constitutional General appearance: average body habitus, no acute distress - EENT Bilateral medial rectus weakness. Note that she keeps 1 eyelid close to avoid diplopia. Eyes: no abnormal pupil, PERRLA, no ptosis ENT: hearing grossly normal - Respiratory Respiratory: negative: prolonged expiration, prolonged inspiration - Cardiovascular Rhythm: regular - Gastrointestinal General gastrointestinal: no distended, no tenderness - Neurologic Patient is alert awake and oriented 3. Speech-language are normal. There is no lateralizing weakness. Strength is 4+ out of 5 in bilateral lower extremities and 5 minus out of 5 in bilateral upper extremities. There is no sensory deficit appreciated. There is no pronator drift. Cranial nerve testing is normal except for that stated above. There is mild bilateral dysmetria on finger-nose testing, this may be a function of her visual disturbance. There is no tremor or seizure-like activities noted. 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 No new neurological deficits are present. She is having significant weakness in her lower extremities especially, which have caused problems with being taken care of at home. Recommend physical and occupational therapy assess the need for ECF transfer. Continue neurological checks. No further neurological workup is needed at this point. We can be consulted on as-needed basis for any worsening in her neurological picture.
[2017-01-18] MEDS: METOPROLOL SUCCINATE (ER) 50 MG TAB.ER.24H PO SCH (17:52)
[2017-01-18] MEDS: ALPRAZolam 0.5 MG TAB PO SCH (20:02)
[2017-01-18] MEDS ORDERED: LEVOFLOXACIN 500MG-D5W PMX 500 MG in DEXTROSE/WATER 1 100ML.BAG IVPB SCH (22:00)
[2017-01-19] MEDS: LEVOTHYROXINE 112 MCG TAB PO SCH (08:25)
[2017-01-19] MEDS: buPROPion XL 300 MG TAB.ER.24H PO SCH (08:25)
[2017-01-19] MEDS: NICOTINE 14MG/24HR PATCH TRANSDERM SCH (08:25)
[2017-01-19] MEDS: ASPIRIN 81 MG CHEW PO SCH (08:25)
[2017-01-19] MEDS: FAMOTIDINE 20 MG TAB PO SCH ×2 (08:26→20:25)
[2017-01-19] MEDS: CLOPIDOGREL 75 MG TAB PO SCH (08:26)
[2017-01-19 10:23] LABS: Basophils % (A) 0 %; CH 32.4; CHCM 33.6; Eosinophils % (A) 1 %; HCT 33.3 % (34.0-46.0); HDW 2.79; HGB 11.2 gm/dL (11.4-16.0); Luc # (Auto) 0.06; Luc % (Auto) 1; Lymphocytes # (A) 0.6 k/uL (1.0-4.8); Lymphocytes % (A) 12 %; MCH 32.5 pg (25.0-35.0); MCHC 33.5 g/dL (31.0-37.0); MCV 96.9 fL (80.0-100.0); Monocytes # (A) 0.2 k/uL (0-1.0); Monocytes % (A) 4 %; Neutrophils # (A) 4.1 k/uL (1.3-7.7); Neutrophils % (A) 83 %; RBC 3.44 m/uL (3.80-5.40); RDW 13.1 % (11.5-15.5); WBC 4.9 k/uL (3.8-10.6); WBC (Perox) 5.14
[2017-01-19 10:34] LABS: ALT 30 U/L (9-52); AST 11 U/L (14-36); Alkaline Phosphatase 49 U/L (38-126); Anion Gap 9 mmol/L; Blood Urea Nitrogen 6 mg/dL (7-17); Calcium 7.7 mg/dL (8.4-10.2); Carbon Dioxide 27 mmol/L (22-30); Chloride 102 mmol/L (98-107); Glucose 84 mg/dL (74-99); Non-African American GFR(MDRD) >60 (>60 ml/min/1.73 sqM); Potassium 3.5 mmol/L (3.5-5.1); Sodium 138 mmol/L (137-145); Total Bilirubin 0.5 mg/dL (0.2-1.3); Total Protein 5.6 g/dL (6.3-8.2)
[2017-01-19] MEDS: SODIUM CHLORIDE 0.9% 1,000 ML IV SCH ×2 (10:34→17:01)
[2017-01-19] MEDS: ACETAMINOPHEN TAB 325 MG TAB PO PRN (12:56)
[2017-01-19] MEDS: ATORVASTATIN 20 MG TAB PO SCH (12:57)
[2017-01-19] MEDS: METOPROLOL SUCCINATE (ER) 50 MG TAB.ER.24H PO SCH (17:22)
[2017-01-19] MEDS: ALPRAZolam 0.5 MG TAB PO SCH (20:25)
[2017-01-20] MEDS: SODIUM CHLORIDE 0.9% 1,000 ML IV SCH ×3 (07:28→23:19)
[2017-01-20 07:46] LABS: Basophils % (A) 0 %; CH 32.7; CHCM 34.5; Eosinophils % (A) 0 %; HCT 36.3 % (34.0-46.0); HDW 2.67; HGB 12.2 gm/dL (11.4-16.0); Luc # (Auto) 0.08; Luc % (Auto) 1; Lymphocytes # (A) 0.6 k/uL (1.0-4.8); Lymphocytes % (A) 11 %; MCH 31.9 pg (25.0-35.0); MCHC 33.6 g/dL (31.0-37.0); MCV 95.1 fL (80.0-100.0); Mean Platelet Volume 6.9; Monocytes # (A) 0.3 k/uL (0-1.0); Monocytes % (A) 5 %; Neutrophils # (A) 4.8 k/uL (1.3-7.7); Neutrophils % (A) 83 %; RBC 3.81 m/uL (3.80-5.40); RDW 12.9 % (11.5-15.5); WBC 5.8 k/uL (3.8-10.6); WBC (Perox) 5.59
[2017-01-20] MEDS: NICOTINE 14MG/24HR PATCH TRANSDERM SCH (08:03)
[2017-01-20] MEDS: FAMOTIDINE 20 MG TAB PO SCH ×2 (08:03→22:48)
[2017-01-20] MEDS: buPROPion XL 300 MG TAB.ER.24H PO SCH (08:04)
[2017-01-20] MEDS: ASPIRIN 81 MG CHEW PO SCH (08:04)
[2017-01-20] MEDS: ATORVASTATIN 20 MG TAB PO SCH (08:04)
[2017-01-20] MEDS: LEVOTHYROXINE 112 MCG TAB PO SCH (08:04)
[2017-01-20] MEDS: CLOPIDOGREL 75 MG TAB PO SCH (08:04)
[2017-01-20 08:07] LABS: ALT 34 U/L (9-52); AST 15 U/L (14-36); Alkaline Phosphatase 53 U/L (38-126); Anion Gap 11 mmol/L; Blood Urea Nitrogen 6 mg/dL (7-17); Calcium 8.1 mg/dL (8.4-10.2); Carbon Dioxide 29 mmol/L (22-30); Chloride 98 mmol/L (98-107); Glucose 89 mg/dL (74-99); Non-African American GFR(MDRD) >60 (>60 ml/min/1.73 sqM); Potassium 3.2 mmol/L (3.5-5.1); Sodium 138 mmol/L (137-145); Total Bilirubin 0.8 mg/dL (0.2-1.3)
--- NOTE | 2017-01-20 11:57 | P.DS ---
Providers Date of admission: 01/17/17 22:18 Expected date of discharge: 01/20/17 Attending physician: Prakash Valderrama Consults: 01/18/17 10:15 Consult Physician Routine Consulting Provider: Michael John Consult Reason/Comments: increase weakness post CVA Do you want consulting provider notified?: Yes Primary care physician: [facility] Course: 61-year-old female one of Dr. Coughlin's patient with past medical history of hypertension, hypothyroidism, depression, history of rheumatoid arthritis, COPD, and previous history of deep venous thrombosis who smoke 1 pack daily for 32 years. She initially presented to [facility] and was hospitalized from January 11 through January 14 at which time she was treated for brain stem stroke and was seen in consultation by Dr. Prasad. MRI revealed evidence of brainstem stroke involving the david. She had bilateral intranuclear ophthalmoplegia and was evaluated by ophthalmology with recommendations to wear eye patch. Patient underwent a YESSICA the came back negative for intracardiac source of embolic stroke. She was continued on dual platelet therapy. She was evaluated by Dr. Austin for inpatient rehab patient preferred to go home despite her limitations. Patient returned to [facility] on January 17 because she kept falling at home and suffered from generalized weakness. She states that after she left the hospital she suffered from abdominal discomfort associated with nausea and intractable vomiting which was severe enough that she could not hold anything down. She kept vomiting and limited her fluid intake and try to stick to liquids. She came in the hospital was found to have a potassium of 2.9 and was just admitted to the hospital. She also had a fever of 100.6. She received 1 dose of Levaquin in the emergency center and was admitted to the [facility] floor. She was seen in consultation by neurologist, Dr. John. She was again evaluated by physical therapy next patient on therapy with recommendations for subacute rehab. Patient has decided on [facility]. Patient will be discharged to [facility] today in stable condition. Discharge diagnoses: 1. Generalized weakness and frequent falls secondary to dehydration and hypokalemia from nausea and vomiting 2. Viral gastroenteritis 3. Recent CVA brainstem, david 4. Hypertension 5. Generalized anxiety disorder and recurrent depression 6. Insomnia 7. Tobacco use and dependence 8. Hypothyroidism Impression and plan of care have been directed as dictated by the signing physician. Soraida Pedersen nurse practitioner acting as scribe for signing physician. Cc: Dr. Pradhan Patient Condition at Discharge: Good Plan - Discharge Summary New Discharge Prescriptions: ALPRAZolam [Xanax] 1 mg PO HS #30 tablet Discharge Medication List Levothyroxine Sodium [Synthroid] 112 mcg PO DAILY 12/25/15 [History] Metoprolol Succinate [Toprol XL] 50 mg PO DAILY@1700 12/25/15 [History] buPROPion HCL [Wellbutrin XL] 300 mg PO DAILY 12/25/15 [History] traZODone HCL [Desyrel] 100 mg PO HS 12/25/15 [History] Acetaminophen Tab [Tylenol] 650 mg PO Q4HR PRN #0 tab 01/14/17 [Rx] Aspirin 81 mg PO DAILY #30 chewable 01/14/17 [Rx] Clopidogrel Bisulfate [Plavix] 75 mg PO DAILY #30 tab 01/14/17 [Rx] Nicotine 14Mg/24Hr Patch [Habitrol] 1 patch TRANSDERM DAILY #30 patch 01/14/17 [ Rx] ALPRAZolam [Xanax] 1 mg PO HS #30 tablet 01/20/17 [Rx] Atorvastatin [Lipitor] 20 mg PO DAILY tab 01/20/17 [Rx] Famotidine [Pepcid] 20 mg PO BID tab 01/20/17 [Rx] Follow up Appointment(s)/Referral(s): Bere Pradhan MD [Primary Care Provider] - 1 Week
--- NOTE | 2017-01-20 12:23 | PN ---
INTERVAL HISTORY: The patient continues to tolerate diet yesterday without intractable nausea and vomiting. The patient is alert and oriented times three. is at the bedside who feels that the patient is back at her baseline but still concerned about it. PHYSICAL EXAMINATION: Vital signs reviewed and stable. Lungs clear to auscultation bilaterally. Heart normal S1, S2. Abdomen soft, nontender, positive bowel sounds. Lower extremities no edema. Imaging and labs: Pending. ASSESSMENT AND PLAN: 1. Frequent falls with generalized weakness likely related to recent cerebrovascular accident and hypokalemia. We will have PT/OT evaluate the patient. The patient and her requested rehab ( ). We will follow-up with ( ) recommendations and arrangements for nursing on discharges. 2. Hypokalemia, improved. Blood work is pending this morning. ( ) likely related to nausea and vomiting. 3. Nausea and vomiting, resolved, ( ) gastroenteritis. 4. Hypertension, under fair control. ( ) aspirin, statin.
[2017-01-20] MEDS ORDERED: POTASSIUM CHLORIDE ER 20 MEQ TAB.ER PO STA (16:25)
[2017-01-20] MEDS: ONDANSETRON 4 MG/2 ML VIAL IVP PRN (16:44)
[2017-01-20] MEDS: ACETAMINOPHEN TAB 325 MG TAB PO PRN (17:59)
[2017-01-20] MEDS: METOPROLOL SUCCINATE (ER) 50 MG TAB.ER.24H PO SCH (18:02)
--- NOTE | 2017-01-20 20:02 | XR ---
EXAMINATION TYPE: XR chest 2V DATE OF EXAM: 01/20/2017 7:52 PM COMPARISON: 01/17/2017 HISTORY: Weakness TECHNIQUE: Frontal and lateral views of the chest are obtained. FINDINGS: Heart and mediastinum are normal. Lungs are clear. Costophrenic angles are clear. Bony tho rax appears intact. IMPRESSION: No active cardiopulmonary disease. No change.
[2017-01-20] MEDS: ALPRAZolam 0.5 MG TAB PO SCH (23:13)
[2017-01-21] MEDS: ONDANSETRON 4 MG/2 ML VIAL IVP PRN ×2 (04:53→16:12)
[2017-01-21] MEDS: SODIUM CHLORIDE 0.9% 1,000 ML IV SCH ×3 (07:11→23:39)
[2017-01-21] MEDS: NICOTINE 14MG/24HR PATCH TRANSDERM SCH (07:25)
[2017-01-21] MEDS: FAMOTIDINE 20 MG TAB PO SCH ×2 (07:26→20:24)
[2017-01-21] MEDS: ATORVASTATIN 20 MG TAB PO SCH (07:26)
[2017-01-21] MEDS: ASPIRIN 81 MG CHEW PO SCH (07:26)
[2017-01-21] MEDS: buPROPion XL 300 MG TAB.ER.24H PO SCH (07:27)
[2017-01-21] MEDS: LEVOTHYROXINE 112 MCG TAB PO SCH (07:27)
[2017-01-21] MEDS: CLOPIDOGREL 75 MG TAB PO SCH (07:27)
[2017-01-21 07:54] LABS: Basophils % (A) 0 %; CHCM 33.9; Eosinophils % (A) 1 %; HCT 37.4 % (34.0-46.0); HDW 2.61; HGB 12.2 gm/dL (11.4-16.0); Luc # (Auto) 0.05; Luc % (Auto) 1; Lymphocytes # (A) 0.6 k/uL (1.0-4.8); Lymphocytes % (A) 9 %; MCH 31.9 pg (25.0-35.0); MCHC 32.7 g/dL (31.0-37.0); MCV 97.8 fL (80.0-100.0); Mean Platelet Volume 7.6; Monocytes # (A) 0.3 k/uL (0-1.0); Monocytes % (A) 5 %; Neutrophils # (A) 5.5 k/uL (1.3-7.7); Neutrophils % (A) 85 %; RBC 3.82 m/uL (3.80-5.40); RDW 13.1 % (11.5-15.5); WBC 6.5 k/uL (3.8-10.6); WBC (Perox) 6.97
[2017-01-21 08:28] LABS: ALT 25 U/L (9-52); AST 20 U/L (14-36); Alkaline Phosphatase 55 U/L (38-126); Anion Gap 8 mmol/L; Blood Urea Nitrogen 10 mg/dL (7-17); Carbon Dioxide 29 mmol/L (22-30); Chloride 102 mmol/L (98-107); Glucose 93 mg/dL (74-99); Non-African American GFR(MDRD) >60 (>60 ml/min/1.73 sqM); Potassium 3.8 mmol/L (3.5-5.1); Sodium 139 mmol/L (137-145); Total Bilirubin 0.7 mg/dL (0.2-1.3); Total Protein 6.1 g/dL (6.3-8.2)
[2017-01-21] MEDS ORDERED: LACTULOSE 20 GM/30 ML CUP PO ONE (10:30)
[2017-01-21] MEDS ORDERED: RX INFO: IV CONTRAST WAS GIVEN 1 EACH MISC MISCELLANE PRN (10:31)
[2017-01-21] MEDS ORDERED: BISACODYL 10 MG SUPP RECTAL STA (10:33)
[2017-01-21] MEDS: IOHEXOL 350 MG/ML 25 ML BOTTLE (ORAL USE) PO PRN ×2 (12:23→13:40)
--- NOTE | 2017-01-21 14:14 | P.PN ---
Subjective 61-year-old female one of Dr. Coughlin's patient with past medical history of hypertension, hypothyroidism, depression, history of rheumatoid arthritis, COPD, and previous history of deep venous thrombosis who smoke 1 pack daily for 32 years. She initially presented to [facility] and was hospitalized from January 11 through January 14 at which time she was treated for brain stem stroke and was seen in consultation by Dr. Prasad. MRI revealed evidence of brainstem stroke involving the david. She had bilateral intranuclear ophthalmoplegia and was evaluated by ophthalmology with recommendations to wear eye patch. Patient underwent a YESSICA the came back negative for intracardiac source of embolic stroke. She was continued on dual platelet therapy. She was evaluated by Dr. Austin for inpatient rehab patient preferred to go home despite her limitations. Patient returned to [facility] on January 17 because she kept falling at home and suffered from generalized weakness. She states that after she left the hospital she suffered from abdominal discomfort associated with nausea and intractable vomiting which was severe enough that she could not hold anything down. She kept vomiting and limited her fluid intake and try to stick to liquids. She came in the hospital was found to have a potassium of 2.9 and was just admitted to the hospital. She also had a fever of 100.6. She received 1 dose of Levaquin in the emergency center and was admitted to the [facility] floor. She was seen in consultation by neurologist, Dr. John. She was again evaluated by physical therapy next patient on therapy with recommendations for subacute rehab. Patient has decided on [facility]. Patient will be discharged to [facility] today in stable condition. She was prepared for discharge awaiting insurance authorization but then developed a fever of 101.2. Chest x-ray did not show any acute findings. Blood culture and urine culture obtained. Patient denied having any chest pain or cough. Influenza testing ordered which is negative. She is complaining of abdominal pain generalized and constipation for many weeks. CAT scan of the abdomen and pelvis with contrast ordered. Objective - Vital Signs Vital signs: Vital Signs Temp 99.1 F 01/21/17 07:00 Pulse 70 01/21/17 07:00 Resp 16 01/21/17 07:00 BP 153/75 01/21/17 07:00 Pulse Ox 94 L 01/21/17 07:00 Intake & Output 01/20/17 01/21/17 01/21/17 18:59 06:59 18:59 Intake Total 1040 Output Total 400 Balance -400 1040 Intake: IV 800 Sodium Chloride 0.9% 1, 800 000 ml @ 100 mls/hr IV . Q10H [facility] Rx#:[id number] Oral 240 Output: Urine 400 Other: Voiding Method Bedpan Bedpan Bedpan Diaper Diaper Diaper # Voids 1 3 - Exam Gen: This is a [ ] HEENT: Head is atraumatic, normocephalic. Pupils equal, round. Sclerae is anicteric. NECK: Supple. No JVD. No lymphadenopathy. No thyromegaly. LUNGS: Clear to auscultation. No wheezes or rhonchi. No intercostal retractions. HEART: Regular rate and rhythm. No murmur. ABDOMEN: Soft. Bowel sounds are present. No masses. No tenderness. EXTREMITIES: No pedal edema. No calf tenderness. NEUROLOGICAL: Patient is awake, alert and oriented x3. Cranial nerves 2 through 12 are grossly intact. - Labs CBC & Chem 7: 01/21/17 07:32 01/21/17 07:32 Labs: Abnormal Lab Results - Last 24 Hours (Table) 01/21/17 01/21/17 Range/Units 07:32 07:32 Lymphocytes # 0.6 L (1.0-4.8) k/uL Calcium 8.0 L (8.4-10.2) mg/dL Total Protein 6.1 L (6.3-8.2) g/dL Albumin 2.6 L (3.5-5.0) g/dL Microbiology - Last 24 Hours (Table) 01/20/17 18:30 Urine Culture - Preliminary Urine,Voided Assessment and Plan Plan: 1. Generalized weakness and frequent falls secondary to dehydration and hypokalemia from nausea and vomiting. Status post replacement and IV fluids. 2. Viral gastroenteritis, improved. 3. Recent CVA brainstem, david. Consult with neurology appreciated. Continue PT and OT. Plan for subacute rehab. 4. Hypertension. Continue metoprolol succinate 50 mg daily. 5. Generalized anxiety disorder and recurrent depression. Continue Xanax 1 mg at bedtime, Wellbutrin 300 mg daily. 6. Insomnia the continue Xanax. 7. Tobacco use and dependence. Continue nicotine patch. 8. Hypothyroidism. Continue levothyroxine. 9. Fever with abdominal pain of unclear etiology. CAT scan of the abdomen and pelvis ordered. One dose of lactulose and to collect suppository ordered [facility] Impression and plan of care have been directed as dictated by the signing physician. Soraida Pedersen nurse practitioner acting as scribe for signing physician. Time with Patient: Greater than 30
--- NOTE | 2017-01-21 14:14 | P.PN ---
Subjective 61-year-old female one of Dr. Coughlin's patient with past medical history of hypertension, hypothyroidism, depression, history of rheumatoid arthritis, COPD, and previous history of deep venous thrombosis who smoke 1 pack daily for 32 years. She initially presented to [facility] and was hospitalized from January 11 through January 14 at which time she was treated for brain stem stroke and was seen in consultation by Dr. Prasad. MRI revealed evidence of brainstem stroke involving the david. She had bilateral intranuclear ophthalmoplegia and was evaluated by ophthalmology with recommendations to wear eye patch. Patient underwent a YESSICA the came back negative for intracardiac source of embolic stroke. She was continued on dual platelet therapy. She was evaluated by Dr. Austin for inpatient rehab patient preferred to go home despite her limitations. Patient returned to [facility] on January 17 because she kept falling at home and suffered from generalized weakness. She states that after she left the hospital she suffered from abdominal discomfort associated with nausea and intractable vomiting which was severe enough that she could not hold anything down. She kept vomiting and limited her fluid intake and try to stick to liquids. She came in the hospital was found to have a potassium of 2.9 and was just admitted to the hospital. She also had a fever of 100.6. She received 1 dose of Levaquin in the emergency center and was admitted to the [facility] floor. She was seen in consultation by neurologist, Dr. John. She was again evaluated by physical therapy next patient on therapy with recommendations for subacute rehab. Patient has decided on [facility]. Patient will be discharged to [facility] today in stable condition. She was prepared for discharge awaiting insurance authorization but then developed a fever of 101.2. Chest x-ray did not show any acute findings. Blood culture and urine culture obtained. Patient denied having any chest pain or cough. Influenza testing ordered which is negative. She is complaining of abdominal pain generalized and constipation for many weeks. CAT scan of the abdomen and pelvis with contrast ordered. Objective - Vital Signs Vital signs: Vital Signs Temp 99.1 F 01/21/17 07:00 Pulse 70 01/21/17 07:00 Resp 16 01/21/17 07:00 BP 153/75 01/21/17 07:00 Pulse Ox 94 L 01/21/17 07:00 Intake & Output 01/20/17 01/21/17 01/21/17 18:59 06:59 18:59 Intake Total 1040 Output Total 400 Balance -400 1040 Intake: IV 800 Sodium Chloride 0.9% 1, 800 000 ml @ 100 mls/hr IV . Q10H [facility] Rx#:[id number] Oral 240 Output: Urine 400 Other: Voiding Method Bedpan Bedpan Bedpan Diaper Diaper Diaper # Voids 1 3 - Exam Gen: This is a [ ] HEENT: Head is atraumatic, normocephalic. Pupils equal, round. Sclerae is anicteric. NECK: Supple. No JVD. No lymphadenopathy. No thyromegaly. LUNGS: Clear to auscultation. No wheezes or rhonchi. No intercostal retractions. HEART: Regular rate and rhythm. No murmur. ABDOMEN: Soft. Bowel sounds are present. No masses. No tenderness. EXTREMITIES: No pedal edema. No calf tenderness. NEUROLOGICAL: Patient is awake, alert and oriented x3. Cranial nerves 2 through 12 are grossly intact. - Labs CBC & Chem 7: 01/21/17 07:32 01/21/17 07:32 Labs: Abnormal Lab Results - Last 24 Hours (Table) 01/21/17 01/21/17 Range/Units 07:32 07:32 Lymphocytes # 0.6 L (1.0-4.8) k/uL Calcium 8.0 L (8.4-10.2) mg/dL Total Protein 6.1 L (6.3-8.2) g/dL Albumin 2.6 L (3.5-5.0) g/dL Microbiology - Last 24 Hours (Table) 01/20/17 18:30 Urine Culture - Preliminary Urine,Voided Assessment and Plan Plan: 1. Generalized weakness and frequent falls secondary to dehydration and hypokalemia from nausea and vomiting. Status post replacement and IV fluids. 2. Viral gastroenteritis, improved. 3. Recent CVA brainstem, david. Consult with neurology appreciated. Continue PT and OT. Plan for subacute rehab. 4. Hypertension. Continue metoprolol succinate 50 mg daily. 5. Generalized anxiety disorder and recurrent depression. Continue Xanax 1 mg at bedtime, Wellbutrin 300 mg daily. 6. Insomnia the continue Xanax. 7. Tobacco use and dependence. Continue nicotine patch. 8. Hypothyroidism. Continue levothyroxine. 9. Fever with abdominal pain of unclear etiology. CAT scan of the abdomen and pelvis ordered. One dose of lactulose and to collect suppository ordered [facility] Impression and plan of care have been directed as dictated by the signing physician. Soraida Pedersen nurse practitioner acting as scribe for signing physician. Time with Patient: Greater than 30
--- NOTE | 2017-01-21 14:39 | CT ---
EXAMINATION TYPE: CT abdomen pelvis w con DATE OF EXAM: 01/21/2017 2:22 PM REFERENCE: NONE HISTORY: abd pian, fever HISTORY: Abd pain and fever REFERENCE: NONE CT DLP: 1342 mGy Automated exposure control for dose reduction was used. TECHNIQUE: Helical acquisition through the abdomen and pelvis was obtained following the oral ingesti on of with Oral Contrast and following intravenous administration of 100 mL of Omnipaque 300. The lorna a was reformatted in axial, coronal and sagittal projections. FINDINGS: There is minimal dependent atelectasis within the lungs. There is no pleural or pericardia l fluid. The heart is not enlarged. Within the abdomen, the liver is prominent measuring 17.5 cm. Is fatty infiltrated. The gallbladder i s not identified. The spleen is unremarkable. Both adrenal glands appear normal. There is a 1 cm cyst in the upper pole of the left kidney. The kidneys are otherwise unremarkable. The pancreas is unremarkable. There is mild atheromatous calcification of the abdominal aorta. There is no significant retroperiton eal, iliac or inguinal adenopathy. The bladder is unremarkable. The uterus and ovaries are not visualized. There is no significant diverticular change and there is no radiographic evidence of diverticulitis. There is a 2 cm area of circumferential narrowing of the distal ascending colon. There is moderate st ool load. There is no significant diverticular change. The appendix is not visualized. Small bowel loops are unremarkable. There is no free fluid and no free air identified. There is degenerative disc disease and facet arthropathy at L5-S1. No other osseous lesion is seen. IMPRESSION: 1. 2 CM AREA OF CIRCUMFERENTIAL NARROWING IN THE DISTAL ASCENDING COLON. 2. MODERATE CONSTIPATION. 3. FATTY INFILTRATION OF THE LIVER. 4. 1 CM CYST IN THE UPPER POLE OF THE LEFT KIDNEY. THIS APPEARS SIMPLY CYSTIC. 5. MILD DEGENERATIVE CHANGE WITHIN THE LUMBAR SPINE.
[2017-01-21] MEDS: METOPROLOL SUCCINATE (ER) 50 MG TAB.ER.24H PO SCH (16:54)
[2017-01-21] MEDS: ACETAMINOPHEN TAB 325 MG TAB PO PRN (16:55)
[2017-01-21] MEDS: ALPRAZolam 0.5 MG TAB PO SCH (20:24)
[2017-01-22 07:52] LABS: CH 32.1; CHCM 33.6; HCT 34.3 % (34.0-46.0); HDW 2.68; HGB 11.3 gm/dL (11.4-16.0); MCH 31.5 pg (25.0-35.0); MCHC 32.9 g/dL (31.0-37.0); MCV 95.9 fL (80.0-100.0); Mean Platelet Volume 6.7; RBC 3.58 m/uL (3.80-5.40); WBC 6.3 k/uL (3.8-10.6)
[2017-01-22 08:19] LABS: ALT 23 U/L (9-52); AST 20 U/L (14-36); Alkaline Phosphatase 51 U/L (38-126); Anion Gap 11 mmol/L; Blood Urea Nitrogen 5 mg/dL (7-17); Calcium 7.8 mg/dL (8.4-10.2); Carbon Dioxide 26 mmol/L (22-30); Chloride 101 mmol/L (98-107); Glucose 80 mg/dL (74-99); Non-African American GFR(MDRD) >60 (>60 ml/min/1.73 sqM); Potassium 3.7 mmol/L (3.5-5.1); Sodium 138 mmol/L (137-145); Total Bilirubin 0.6 mg/dL (0.2-1.3); Total Protein 5.8 g/dL (6.3-8.2)
[2017-01-22] MEDS: LEVOTHYROXINE 112 MCG TAB PO SCH (09:05)
[2017-01-22] MEDS: buPROPion XL 300 MG TAB.ER.24H PO SCH (09:05)
[2017-01-22] MEDS: NICOTINE 14MG/24HR PATCH TRANSDERM SCH (09:05)
[2017-01-22] MEDS: ASPIRIN 81 MG CHEW PO SCH (09:05)
[2017-01-22] MEDS: ATORVASTATIN 20 MG TAB PO SCH (09:05)
[2017-01-22] MEDS: FAMOTIDINE 20 MG TAB PO SCH ×2 (09:05→22:27)
[2017-01-22] MEDS: CLOPIDOGREL 75 MG TAB PO SCH (09:05)
[2017-01-22] MEDS: SODIUM CHLORIDE 0.9% 1,000 ML IV SCH ×2 (13:10→22:28)
[2017-01-22] MEDS: MECLIZINE 25 MG TAB PO SCH ×3 (13:10→22:27)
--- NOTE | 2017-01-22 15:16 | P.PN ---
Subjective 61-year-old female one of Dr. Coughlin's patient with past medical history of hypertension, hypothyroidism, depression, history of rheumatoid arthritis, COPD, and previous history of deep venous thrombosis who smoke 1 pack daily for 32 years. She initially presented to [facility] and was hospitalized from January 11 through January 14 at which time she was treated for brain stem stroke and was seen in consultation by Dr. Prasad. MRI revealed evidence of brainstem stroke involving the david. She had bilateral intranuclear ophthalmoplegia and was evaluated by ophthalmology with recommendations to wear eye patch. Patient underwent a YESSICA the came back negative for intracardiac source of embolic stroke. She was continued on dual platelet therapy. She was evaluated by Dr. Austin for inpatient rehab patient preferred to go home despite her limitations. Patient returned to [facility] on January 17 because she kept falling at home and suffered from generalized weakness. She states that after she left the hospital she suffered from abdominal discomfort associated with nausea and intractable vomiting which was severe enough that she could not hold anything down. She kept vomiting and limited her fluid intake and try to stick to liquids. She came in the hospital was found to have a potassium of 2.9 and was just admitted to the hospital. She also had a fever of 100.6. She received 1 dose of Levaquin in the emergency center and was admitted to the [facility] floor. She was seen in consultation by neurologist, Dr. John. She was again evaluated by physical therapy next patient on therapy with recommendations for subacute rehab. Patient has decided on [facility]. Patient will be discharged to [facility] today in stable condition. She was prepared for discharge awaiting insurance authorization but then developed a fever of 101.2. Chest x-ray did not show any acute findings. Blood culture and urine culture obtained. Patient denied having any chest pain or cough. Influenza testing ordered which is negative. She is complaining of abdominal pain generalized and constipation for many weeks. CAT scan of the abdomen and pelvis with contrast ordered. 01/22: Patient denies any issues today. CAT scan of the abdomen and pelvis did not show any findings that were acute. Temperature max was 100.5 yesterday afternoon. White count is 6.3. Urine culture finalized with no growth and all blood cultures are showing no growth. No signs of infection at this time. Patient will be monitored overnight and plan for discharge to [facility] tomorrow. Objective - Vital Signs Vital signs: Vital Signs Temp 98.5 F 01/22/17 08:25 Pulse 74 01/22/17 08:25 Resp 16 01/22/17 08:25 BP 148/87 01/22/17 08:25 Pulse Ox 96 01/22/17 08:25 Intake & Output 01/21/17 01/22/17 01/22/17 18:59 06:59 18:59 Intake Total 400 640 Balance 400 640 Intake: IV 400 400 Sodium Chloride 0.9% 1, 400 400 000 ml @ 100 mls/hr IV . Q10H [facility] Rx#:[id number] Oral 240 Other: Voiding Method Bedside Commode Bedside Commode Bedside Commode Incontinent Incontinent # Voids 2 # Bowel Movements 1 - Exam Gen: This is a [ ] HEENT: Head is atraumatic, normocephalic. Pupils equal, round. Sclerae is anicteric. NECK: Supple. No JVD. No lymphadenopathy. No thyromegaly. LUNGS: Clear to auscultation. No wheezes or rhonchi. No intercostal retractions. HEART: Regular rate and rhythm. No murmur. ABDOMEN: Soft. Bowel sounds are present. No masses. No tenderness. EXTREMITIES: No pedal edema. No calf tenderness. NEUROLOGICAL: Patient is awake, alert and oriented x3. Cranial nerves 2 through 12 are grossly intact. - Labs CBC & Chem 7: 01/22/17 07:28 01/22/17 07:28 Labs: Abnormal Lab Results - Last 24 Hours (Table) 01/22/17 01/22/17 Range/Units 07:28 07:28 RBC 3.58 L (3.80-5.40) m/uL Hgb 11.3 L (11.4-16.0) gm/dL BUN 5 L (7-17) mg/dL Calcium 7.8 L (8.4-10.2) mg/dL Total Protein 5.8 L (6.3-8.2) g/dL Albumin 2.5 L (3.5-5.0) g/dL Microbiology - Last 24 Hours (Table) 01/20/17 18:30 Urine Culture - Final Urine,Voided 01/20/17 16:50 Blood Culture - Preliminary Blood No Growth after 24 hours 01/20/17 16:44 Blood Culture - Preliminary Blood No Growth after 24 hours Assessment and Plan Plan: 1. Generalized weakness and frequent falls secondary to dehydration and hypokalemia from nausea and vomiting. Status post replacement and IV fluids. 2. Viral gastroenteritis, improved. 3. Recent CVA brainstem, david with dizziness. Left eye patch. Meclizine added. Consult with neurology appreciated. Continue PT and OT. Plan for subacute rehab. 4. Hypertension. Continue metoprolol succinate 50 mg daily. 5. Generalized anxiety disorder and recurrent depression. Continue Xanax 1 mg at bedtime, Wellbutrin 300 mg daily. 6. Insomnia the continue Xanax. 7. Tobacco use and dependence. Continue nicotine patch. 8. Hypothyroidism. Continue levothyroxine. 9. Fever with abdominal pain of unclear etiology. CAT scan of the abdomen and pelvis as above. Most likely due to constipation Discharge plan: [facility] on Thursday Impression and plan of care have been directed as dictated by the signing physician. Soraida Pedersen nurse practitioner acting as scribe for signing physician. Time with Patient: Greater than 30
[2017-01-22] MEDS: METOPROLOL SUCCINATE (ER) 50 MG TAB.ER.24H PO SCH (17:10)
[2017-01-22] MEDS: ACETAMINOPHEN TAB 325 MG TAB PO PRN (17:55)
[2017-01-22] MEDS: ONDANSETRON 4 MG/2 ML VIAL IVP PRN (17:55)
[2017-01-22] MEDS: ALPRAZolam 0.5 MG TAB PO SCH (22:27)
[2017-01-23] MEDS: SODIUM CHLORIDE 0.9% 1,000 ML IV SCH ×2 (08:00→16:56)
[2017-01-23] MEDS: ASPIRIN 81 MG CHEW PO SCH (08:02)
[2017-01-23] MEDS: NICOTINE 14MG/24HR PATCH TRANSDERM SCH (08:02)
[2017-01-23] MEDS: ATORVASTATIN 20 MG TAB PO SCH (08:03)
[2017-01-23] MEDS: CLOPIDOGREL 75 MG TAB PO SCH (08:03)
[2017-01-23] MEDS: buPROPion XL 300 MG TAB.ER.24H PO SCH (08:03)
[2017-01-23] MEDS: FAMOTIDINE 20 MG TAB PO SCH ×2 (08:03→20:14)
[2017-01-23] MEDS: LEVOTHYROXINE 112 MCG TAB PO SCH (08:04)
[2017-01-23] MEDS: MECLIZINE 25 MG TAB PO SCH ×3 (08:04→20:14)
[2017-01-23] MEDS: ONDANSETRON 4 MG/2 ML VIAL IVP PRN (08:06)
--- NOTE | 2017-01-23 13:49 | P.PN ---
Subjective 61-year-old female one of Dr. Coughlin's patient with past medical history of hypertension, hypothyroidism, depression, history of rheumatoid arthritis, COPD, and previous history of deep venous thrombosis who smoke 1 pack daily for 32 years. She initially presented to [facility] and was hospitalized from January 11 through January 14 at which time she was treated for brain stem stroke and was seen in consultation by Dr. Prasad. MRI revealed evidence of brainstem stroke involving the david. She had bilateral intranuclear ophthalmoplegia and was evaluated by ophthalmology with recommendations to wear eye patch. Patient underwent a YESSICA the came back negative for intracardiac source of embolic stroke. She was continued on dual platelet therapy. She was evaluated by Dr. Austin for inpatient rehab patient preferred to go home despite her limitations. Patient returned to [facility] on January 17 because she kept falling at home and suffered from generalized weakness. She states that after she left the hospital she suffered from abdominal discomfort associated with nausea and intractable vomiting which was severe enough that she could not hold anything down. She kept vomiting and limited her fluid intake and try to stick to liquids. She came in the hospital was found to have a potassium of 2.9 and was just admitted to the hospital. She also had a fever of 100.6. She received 1 dose of Levaquin in the emergency center and was admitted to the [facility] floor. She was seen in consultation by neurologist, Dr. John. She was again evaluated by physical therapy next patient on therapy with recommendations for subacute rehab. Patient has decided on [facility]. Patient will be discharged to [facility] today in stable condition. She was prepared for discharge awaiting insurance authorization but then developed a fever of 101.2. Chest x-ray did not show any acute findings. Blood culture and urine culture obtained. Patient denied having any chest pain or cough. Influenza testing ordered which is negative. She is complaining of abdominal pain generalized and constipation for many weeks. CAT scan of the abdomen and pelvis with contrast ordered. 01/22: Patient denies any issues today. CAT scan of the abdomen and pelvis revealed 2 cm narrowing in the distal ascending colon, moderate constipation, fatty infiltration of the liver, 1 cm cyst in the upper pole of the left kidney , degenerative change in the lumbar spine. Temperature max was 100.5 yesterday afternoon. White count is 6.3. Urine culture finalized with no growth and all blood cultures are showing no growth. No signs of infection at this time. Patient will be monitored overnight and plan for discharge to [facility] tomorrow. 01/23:due to narrowing of the distal descending colon, consults were added for Dr. Hassan and Dr. Mcnamara for further evaluation. Patient does have abdominal tenderness bilateral upper quadrants but right upper quadrant is most tender. Last bowel movement was yesterday. Objective - Vital Signs Vital signs: Vital Signs Temp 99.5 F 01/23/17 07:59 Pulse 75 01/23/17 07:59 Resp 18 01/23/17 07:59 BP 143/67 01/23/17 07:59 Pulse Ox 98 01/23/17 07:59 Intake & Output 01/22/17 01/23/17 01/23/17 18:59 06:59 18:59 Intake Total 755 918 Output Total 400 Balance 355 918 Intake: IV 755 800 Sodium Chloride 0.9% 1, 755 800 000 ml @ 100 mls/hr IV . Q10H [facility] Rx#:[id number] Oral 118 Output: Urine 400 Other: Voiding Method Bedside Commode Bedside Commode Incontinent # Voids 1 2 - Exam Gen: This is a 89-year-old female. She is sitting up in bed and appears to be in no acute distress. HEENT: Head is atraumatic, normocephalic. Pupils equal, round. Sclerae is anicteric. NECK: Supple. No JVD. No lymphadenopathy. No thyromegaly. LUNGS: Clear to auscultation. No wheezes or rhonchi. No intercostal retractions. HEART: Regular rate and rhythm. No murmur. ABDOMEN: Soft. Bowel sounds are present. No masses. Bilateral upper quadrant tenderness, most severe at right upper quadrant. EXTREMITIES: No pedal edema. No calf tenderness. NEUROLOGICAL: Patient is awake, alert and oriented x3. Cranial nerves 2 through 12 are grossly intact. - Labs CBC & Chem 7: 01/22/17 07:28 01/22/17 07:28 Labs: Microbiology - Last 24 Hours (Table) 01/20/17 16:50 Blood Culture - Preliminary Blood No Growth after 48 hours 01/20/17 16:44 Blood Culture - Preliminary Blood No Growth after 48 hours Assessment and Plan Plan: 1. Generalized weakness and frequent falls secondary to dehydration and hypokalemia from nausea and vomiting. Status post replacement and IV fluids. 2. Viral gastroenteritis, improved. 3. Recent CVA brainstem, david with dizziness. Left eye patch. Meclizine added. Consult with neurology appreciated. Continue PT and OT. Plan for subacute rehab. 4. Hypertension. Continue metoprolol succinate 50 mg daily. 5. Generalized anxiety disorder and recurrent depression. Continue Xanax 1 mg at bedtime, Wellbutrin 300 mg daily. 6. Insomnia the continue Xanax. 7. Tobacco use and dependence. Continue nicotine patch. 8. Hypothyroidism. Continue levothyroxine. 9. Fever with abdominal pain of unclear etiology. CAT scan of the abdomen and pelvis as above. consults requested with Dr. Hassan and Dr. Mcnamara for further evaluation. [facility] Impression and plan of care have been directed as dictated by the signing physician. Soraida Pedersen nurse practitioner acting as scribe for signing physician. Time with Patient: Greater than 30
--- NOTE | 2017-01-23 15:04 | CONS ---
DATE OF CONSULTATION: 01/23/2017 REASON FOR CONSULTATION: Abnormal CT scan. HISTORY: The patient is a 61-year-old female who had suffered a stroke and was discharged. She was admitted to the hospital from 01/11 to 01/14. She was discharged home and her had to bring her in because she was getting progressively more weak. She also was having nausea and vomiting, unable to keep anything down. She had a low-grade temperature of 100.6, so she was admitted and antibiotics were started. She subsequently had a CT scan of the abdomen and pelvis performed which showed a moderately large amount of stool in the colon and questionable narrowing in the ascending colon. She has had resolution of her nausea and vomiting. She was able to eat yesterday; not a normal amount, but she did not develop nausea and vomiting. She was able to eat her breakfast okay this morning. She had a bowel movement yesterday. She is troubled by chronic constipation and can go weeks without a bowel movement; this has been long-standing. She has not noticed a change in that. No blood in the stools or dark tarry stools. No family history of GI malignancy or inflammatory bowel disease. She had a colonoscopy done about 8 years ago. She does not believe that there were any polyps noted at that time. Her past medical history includes: 1. Recent CVA. 2. Hypertension. 3. History of DVT. 4. Hypothyroidism. Past surgical history includes: 1. Appendectomy. 2. Bladder surgery. 3. Cholecystectomy. 4. Hysterectomy. 5. Tonsillectomy. 6. Thyroidectomy for goiter. 7. Bilateral cataract surgery. MEDICATIONS ON ADMISSION: 1. Xanax. 2. Levothyroxine. 3. Metoprolol. 4. Wellbutrin. 5. Trazodone. 6. Tylenol. 7. Aspirin. 8. Plavix. 9. Nicotine patch. See med rec for doses. ALLERGIES: NONE. SOCIAL: Smoker. No alcohol use. FAMILY HISTORY: Negative for GI malignancy. REVIEW OF SYSTEMS: Per Chief Complaint. PHYSICAL EXAM: A 61-year-old female. She alert and oriented x3. She has had low-grade temperature this morning at 99.5. Pulse is 75, respirations 18. Blood pressure is 143/67. Her right eye is patched. NEURO: She seems to not be able to see or comprehend that the IV is in her right hand and is attached and running. She is repeatedly looking for the IV within the bed clothes. Otherwise she appears to respond appropriately. Neck has a scar; otherwise no adenopathy. HEART: Regular rate and rhythm without murmur. LUNGS: Clear to auscultation. ABDOMEN: Soft, nontender. Positive bowel sounds. No masses or hepatosplenomegaly. No tenderness, guarding or rebound. LABS: She had a normal white count through admission. Hemoglobin is 11.3. Sodium and potassium are within normal range. The potassium was low on 01/[address] scan of the abdomen and pelvis was personally reviewed. There is a worrisome area in the ascending colon. No obvious lymphadenopathy or liver lesions. ASSESSMENT: 1. Abnormal CT scan of the colon. 2. Nausea and vomiting, resolved, possibly related to recent cerebrovascular accident. PLAN: I spoke patient's and told him that this area does need to be evaluated by colonoscopy, but we will need to discuss with primary service when this is done. I think it would be okay to delay this, given that her nausea and vomiting have resolved. Likelihood of an obstructing tumor would be low. Further recommendations to follow.
[2017-01-23] MEDS: METOPROLOL SUCCINATE (ER) 50 MG TAB.ER.24H PO SCH (16:45)
--- NOTE | 2017-01-23 17:04 | CONS ---
DATE OF CONSULTATION: 01/23/2017 REASON FOR FOLLOWUP: Abnormal CT of abdomen and need for antibiotic therapy. HISTORY OF PRESENT ILLNESS: The patient is a 61-year-old female who was admitted to the hospital on 01/17/2017 when the patient presented unable to take care of herself with extreme dizziness; unable to stand and ambulate with a walker. Patient went to the ER, was noticed to have a low-grade fever of 100.6. Since then the patient has been running a low-grade fever of 99.9 on 01/19. On 01/20 she spiked a fever of 101.2 degrees Fahrenheit and 100.5 on 01/21; however, the patient has been afebrile since then. The patient did have a normal white count throughout her hospitalization. She did have. Influenza A and B that was sent on 01/21 that remains negative. UA was done on 01/17. That was negative. She had a chest x-ray was negative for any pneumonia. CT of abdomen and pelvis was done which shows a 2 cm area of circumferential narrowing in the distal ascending colon, moderate constipation. The patient did mention that she did have a colonoscopy done by Dr. Mejia about 8 years ago and she was told it was normal. The patient denies any chronic history of diarrhea or any bleeding per rectum. No significant constipation. She did have a bowel movement yesterday. Patient has not been on any antibiotic therapy. Her fever has resolved. I was asked to see the patient for further recommendations regarding antibiotic therapy. REVIEW OF SYSTEMS: CONSTITUTIONAL: Positive for weakness and a fever, as mentioned earlier; however, the patient has been afebrile for the last 48 hours. EYES: No complaint. ENT: No complaint. RESPIRATORY: No complaint. CARDIOVASCULAR: No complaint. GENITOURINARY: No complaint. GASTROINTESTINAL: As per HPI. MUSCULOSKELETAL: No complaint. INTEGUMENTARY: No complaint. PSYCHOLOGICAL: No complaint. ENDOCRINE: No complaint. NEUROLOGIC: No complaint. Past medical history is significant for: 1. CVA. 2. DVT. 3. Hypertension. 4. Hypothyroidism. 5. Insomnia. 6. Anxiety. 7. Depression. PAST SURGICAL HISTORY: 1. Appendectomy. 2. Bladder surgery. 3. Cholecystectomy. 4. Hysterectomy. 5. Tonsillectomy. 6. Thyroidectomy. 7. Bilateral cataract surgery. SOCIAL HISTORY: The patient is a current everyday smoker. No alcohol or drug use. FAMILY HISTORY: Positive for neuroblastoma. ALLERGIES: NO KNOWN DRUG ALLERGIES. Medications currently include: 1. Tylenol. 2. Xanax. 3. Aspirin. 4. Lipitor. 5. Wellbutrin. 6. Plavix. 7. Pepcid. 8. Synthroid. 9. Antivert. 10. Toprol XL. 11. Narcan. 12. Nicotine patch. 13. Zofran. On examination, blood pressure is 143/67 with a pulse of 75, temperature 99.5. She is 98% on room air. General description is a middle-aged female lying in bed in no distress. HEENT EXAMINATION: Slight pallor. No scleral icterus. Oral mucous membrane is dry. NECK: Trachea is central. No thyromegaly. LUNGS: Unlabored breathing. Clear to auscultation anteriorly. HEART: S1, S2. Regular rate and rhythm. ABDOMEN: Soft. No guarding. No rigidity. No organomegaly. EXTREMITIES: No edema of feet. SKIN EXAMINATION: No rash or mass palpable. NEUROLOGICAL: The patient is awake, alert, oriented x3. Mood and affect normal. LABS: Hemoglobin is 11.3 with a white count of 6.3, BUN of 5 with a creatinine of 0.52. Electrolytes have been normal. Urine has been negative. Influenza A and B has been negative. CT report as mentioned above. DIAGNOSTIC IMPRESSION AND PLAN: 1. Patient with an episode of low-grade fever on admission and a fever of 101 on 01/21; however, the patient has been afebrile since then. The patient did have extensive workup, including a chest x-ray that was negative for pneumonia. UA has been negative. No evidence of any cellulitis. The patient's fever resolved without any antibiotic therapy, more likely indicating a viral etiology that has resolved by itself. 2. Patient with abnormality seen on the CT of the abdomen with circumferential narrowing of the ascending colon in a patient who did have a history of colonoscopy done by Dr. Mejia about 8 years ago. She was told it was normal. Clinically not of infectious etiology. May benefit from a direct visualization through a repeat colonoscopy. PLAN: 1. No need for any antibiotic therapy at this point, as clinical suspicion remains low for a bacterial infection. 2. Await general surgery evaluation, possible colonoscopy. 3. Will follow up on the clinical condition and further adjust medication if needed. Thank you for this consultation. Will follow this patient along with you.
[2017-01-23] MEDS: ALPRAZolam 0.5 MG TAB PO SCH (20:14)
[2017-01-24] MEDS: SODIUM CHLORIDE 0.9% 1,000 ML IV SCH ×3 (02:18→21:24)
[2017-01-24] MEDS: ACETAMINOPHEN TAB 325 MG TAB PO PRN (08:17)
[2017-01-24] MEDS: ATORVASTATIN 20 MG TAB PO SCH (08:18)
[2017-01-24] MEDS: NICOTINE 14MG/24HR PATCH TRANSDERM SCH (08:18)
[2017-01-24] MEDS: buPROPion XL 300 MG TAB.ER.24H PO SCH (08:18)
[2017-01-24] MEDS: ASPIRIN 81 MG CHEW PO SCH (08:18)
[2017-01-24] MEDS: FAMOTIDINE 20 MG TAB PO SCH ×2 (08:18→21:21)
[2017-01-24] MEDS: CLOPIDOGREL 75 MG TAB PO SCH (08:18)
[2017-01-24] MEDS: LEVOTHYROXINE 112 MCG TAB PO SCH (08:18)
[2017-01-24] MEDS: MECLIZINE 25 MG TAB PO SCH ×3 (08:18→21:21)
--- NOTE | 2017-01-24 09:20 | P.PN ---
Subjective Principal diagnosis: Colon Narrowing Patient denies abdominal pain. She is tolerating her diet. There are discussions about possible discharge today. Objective - Vital Signs Vital signs: Vital Signs Temp 100 F H 01/24/17 07:00 Pulse 78 01/24/17 07:00 Resp 16 01/24/17 07:00 BP 157/75 01/24/17 07:00 Pulse Ox 97 01/24/17 07:00 Intake & Output 01/23/17 01/24/17 01/24/17 18:59 06:59 18:59 Intake Total 660 400 Output Total 800 Balance -140 400 Weight 69.5 kg Intake: IV 660 400 Sodium Chloride 0.9% 1, 660 400 000 ml @ 100 mls/hr IV . Q10H [facility] Rx#:[id number] Output: Urine 800 Other: Voiding Method Bedside Commode Bedside Commode Bedside Commode Incontinent Incontinent # Voids 2 2 - Exam Abdomen: Soft, nontender, nondistended - Labs CBC & Chem 7: 01/22/17 07:28 01/22/17 07:28 Labs: Microbiology - Last 24 Hours (Table) 01/20/17 16:50 Blood Culture - Preliminary Blood No Growth after 72 hours 01/20/17 16:44 Blood Culture - Preliminary Blood No Growth after 72 hours Assessment and Plan Plan: Continue diet as tolerated. Follow-up with Dr. Mcnamara postdischarge for colonoscopy.
[2017-01-24] MEDS: METOPROLOL SUCCINATE (ER) 50 MG TAB.ER.24H PO SCH (17:54)
--- NOTE | 2017-01-24 17:59 | XR ---
EXAMINATION TYPE: XR chest 2V DATE OF EXAM: 01/24/2017 5:49 PM COMPARISON: 01/20/2017 HISTORY: 61-year-old female with a recent brainstem stroke and fever TECHNIQUE: Frontal and lateral views FINDINGS: The cardiomediastinal silhouette, aorta, and pulmonary vasculature are within normal limits. Mild hyp erinflation. Some minimal patchy atelectasis posterior lung base. No significant pleural effusion or luz consolidation. IMPRESSION: Hyperinflation which may relate to depth of inspiration or underlying emphysema. No definite acute pr ocess.
[2017-01-24 18:17] LABS: Appearance,Urine Clear (Clear); Bilirubin,Urine Negative (Negative); Glucose,Urine (UA) Negative (Negative); Ketones,Urine Negative (Negative); Leukocyte Esterase,Urine Negative (Negative); Nitrite,Urine Negative (Negative); PH, Urine 6.5 (5.0-8.0); Protein,Urine Negative (Negative); Specific Gravity,Urine 1.013 (1.001-1.035); UA Billing (MACRO vs. MICRO) CHEM
--- NOTE | 2017-01-24 19:10 | P.PN ---
Subjective 61-year-old female one of Dr. Coughlin's patient with past medical history of hypertension, hypothyroidism, depression, history of rheumatoid arthritis, COPD, and previous history of deep venous thrombosis who smoke 1 pack daily for 32 years. She initially presented to [facility] and was hospitalized from January 11 through January 14 at which time she was treated for brain stem stroke and was seen in consultation by Dr. Prasad. MRI revealed evidence of brainstem stroke involving the david. She had bilateral intranuclear ophthalmoplegia and was evaluated by ophthalmology with recommendations to wear eye patch. Patient underwent a YESSICA the came back negative for intracardiac source of embolic stroke. She was continued on dual platelet therapy. She was evaluated by Dr. Austin for inpatient rehab patient preferred to go home despite her limitations. Patient returned to [facility] on January 17 because she kept falling at home and suffered from generalized weakness. She states that after she left the hospital she suffered from abdominal discomfort associated with nausea and intractable vomiting which was severe enough that she could not hold anything down. She kept vomiting and limited her fluid intake and try to stick to liquids. She came in the hospital was found to have a potassium of 2.9 and was just admitted to the hospital. She also had a fever of 100.6. She received 1 dose of Levaquin in the emergency center and was admitted to the [facility] floor. She was seen in consultation by neurologist, Dr. John. She was again evaluated by physical therapy next patient on therapy with recommendations for subacute rehab. Patient has decided on [facility]. Patient will be discharged to [facility] today in stable condition. She was prepared for discharge awaiting insurance authorization but then developed a fever of 101.2. Chest x-ray did not show any acute findings. Blood culture and urine culture obtained. Patient denied having any chest pain or cough. Influenza testing ordered which is negative. She is complaining of abdominal pain generalized and constipation for many weeks. CAT scan of the abdomen and pelvis with contrast ordered. 01/22: Patient denies any issues today. CAT scan of the abdomen and pelvis revealed 2 cm narrowing in the distal ascending colon, moderate constipation, fatty infiltration of the liver, 1 cm cyst in the upper pole of the left kidney , degenerative change in the lumbar spine. Temperature max was 100.5 yesterday afternoon. White count is 6.3. Urine culture finalized with no growth and all blood cultures are showing no growth. No signs of infection at this time. Patient will be monitored overnight and plan for discharge to [facility] tomorrow. 01/23:due to narrowing of the distal descending colon, consults were added for Dr. Hassan and Dr. Mcnamara for further evaluation. Patient does have abdominal tenderness bilateral upper quadrants but right upper quadrant is most tender. Last bowel movement was yesterday. 01/24: Patient had spiked a temperature of 100 again this morning, she didn't have any day without any fever has been spiking influenza test negative, we are repeating her urine cultures with analysis, chest x-ray, and Doppler of the legs. Patient has cramps in the legs and chills diminished appetite no diarrhea transferred to [facility] er is currently held patient is not on any antibiotics at this time infectious disease is following Objective - Vital Signs Vital signs: Vital Signs Temp 98.4 F 01/24/17 15:00 Pulse 67 01/24/17 15:00 Resp 16 01/24/17 15:00 BP 108/73 01/24/17 15:00 Pulse Ox 97 01/24/17 15:00 Intake & Output 01/23/17 01/24/17 01/24/17 18:59 06:59 18:59 Intake Total 660 400 Output Total 800 Balance -140 400 Weight 69.5 kg Intake: IV 660 400 Sodium Chloride 0.9% 1, 660 400 000 ml @ 100 mls/hr IV . Q10H PETE Rx#:[id number] Output: Urine 800 Other: Voiding Method Bedside Commode Bedside Commode Bedside Commode Incontinent Incontinent # Voids 2 2 1 - Constitutional General appearance: Present: cooperative, no acute distress - EENT Eyes: Present: anicteric sclerae, EOMI, PERRLA, dentition normal, normal appearance ENT: Present: hearing grossly normal, NA/AT, normal oropharynx - Neck Neck: Present: normal ROM. Absent: lymphadenopathy, other, rigidity, stridor, thyromegaly Thyroid: bilateral: normal size - Respiratory Respiratory: bilateral: CTA, diminished, negative: dullness, rales - Cardiovascular Rhythm: regular Heart sounds: normal: S1, S2 Abnormal Heart Sounds: Absent: systolic murmur, diastolic murmur, rub, S3 Gallop , S4 Gallop, click, other - Gastrointestinal General gastrointestinal: Present: normal bowel sounds, soft - Integumentary Integumentary: Present: normal, normal turgor - Neurologic Neurologic: Present: CNII-XII intact - Musculoskeletal Musculoskeletal: Present: generalized weakness - Psychiatric Psychiatric: Present: A&O x's 3, appropriate affect, intact judgment & insight - Labs CBC & Chem 7: 01/22/17 07:28 01/22/17 07:28 Labs: Microbiology - Last 24 Hours (Table) 01/20/17 16:50 Blood Culture - Preliminary Blood No Growth after 72 hours 01/20/17 16:44 Blood Culture - Preliminary Blood No Growth after 72 hours Laboratory Results WBC 6.3 k/uL (3.8-10.6) 01/22/17 07:28 RBC 3.58 m/uL (3.80-5.40) L 01/22/17 07:28 Hgb 11.3 gm/dL (11.4-16.0) L 01/22/17 07:28 Hct 34.3 % (34.0-46.0) 01/22/17 07:28 MCV 95.9 fL (80.0-100.0) 01/22/17 07:28 MCH 31.5 pg (25.0-35.0) 01/22/17 07:28 MCHC 32.9 g/dL (31.0-37.0) 01/22/17 07:28 RDW 13.0 % (11.5-15.5) 01/22/17 07:28 Plt Count 187 k/uL (150-450) 01/22/17 07:28 Neutrophils % 85 % 01/21/17 07:32 Lymphocytes % 9 % 01/21/17 07:32 Monocytes % 5 % 01/21/17 07:32 Eosinophils % 1 % 01/21/17 07:32 Basophils % 0 % 01/21/17 07:32 Neutrophils # 5.5 k/uL (1.3-7.7) 01/21/17 07:32 Lymphocytes # 0.6 k/uL (1.0-4.8) L 01/21/17 07:32 Monocytes # 0.3 k/uL (0-1.0) 01/21/17 07:32 Eosinophils # 0.0 k/uL (0-0.7) 01/21/17 07:32 Basophils # 0.0 k/uL (0-0.2) 01/21/17 07:32 PT 12.5 sec (9.0-12.0) H 01/17/17 19:50 INR 1.3 (<1.1) 01/17/17 19:50 APTT 29.4 sec (22.0-30.0) 01/17/17 19:50 Sodium 138 mmol/L (137-145) 01/22/17 07:28 Potassium 3.7 mmol/L (3.5-5.1) 01/22/17 07:28 Chloride 101 mmol/L (98-107) 01/22/17 07:28 Carbon Dioxide 26 mmol/L (22-30) 01/22/17 07:28 Anion Gap 11 mmol/L 01/22/17 07:28 BUN 5 mg/dL (7-17) L 01/22/17 07:28 Creatinine 0.52 mg/dL (0.52-1.04) 01/22/17 07:28 Est GFR (MDRD) Af Amer >60 (>60 ml/min/1.73 sqM) 01/22/17 07:28 Est GFR (MDRD) Non-Af >60 (>60 ml/min/1.73 sqM) 01/22/17 07:28 Glucose 80 mg/dL (74-99) 01/22/17 07:28 POC Glucose (mg/dL) 102 mg/dL (75-99) H 01/17/17 23:05 POC Glu Heart Nurse ALYSSA [place] 01/17/17 23:05 Plasma Lactic Acid Alexis 1.0 mmol/L (0.7-2.0) 01/17/17 19:50 Calcium 7.8 mg/dL (8.4-10.2) L 01/22/17 07:28 Magnesium 2.0 mg/dL (1.6-2.3) 01/18/17 02:25 Total Bilirubin 0.6 mg/dL (0.2-1.3) 01/22/17 07:28 AST 20 U/L (14-36) 01/22/17 07:28 ALT 23 U/L (9-52) 01/22/17 07:28 Alkaline Phosphatase 51 U/L (38-126) 01/22/17 07:28 Total Creatine Kinase <20 U/L (30-135) L 01/17/17 19:50 CK-MB (CK-2) <0.2 ng/mL (0.0-2.4) 01/17/17 19:50 CK-MB (CK-2) Rel Index 01/17/17 19:50 Troponin I <0.012 ng/mL (0.000-0.034) 01/17/17 19:50 Total Protein 5.8 g/dL (6.3-8.2) L 01/22/17 07:28 Albumin 2.5 g/dL (3.5-5.0) L 01/22/17 07:28 Urine Color Yellow 01/24/17 18:05 Urine Appearance Clear (Clear) 01/24/17 18:05 Urine pH 6.5 (5.0-8.0) 01/24/17 18:05 Ur Specific [place] 1.013 (1.001-1.035) 01/24/17 18:05 Urine Protein Negative (Negative) 01/24/17 18:05 Urine Glucose (UA) Negative (Negative) 01/24/17 18:05 Urine Ketones Negative (Negative) 01/24/17 18:05 Urine Blood Negative (Negative) 01/24/17 18:05 Urine Nitrate Negative (Negative) 01/24/17 18:05 Urine Bilirubin Negative (Negative) 01/24/17 18:05 Urine Urobilinogen 8.0 mg/dL (<2.0) 01/24/17 18:05 Ur Leukocyte Esterase Negative (Negative) 01/24/17 18:05 Influenza Type A RNA Not Detected (Not Detectd) 01/21/17 10:50 Influenza Type B (PCR) Not Detected (Not Detectd) 01/21/17 10:50 Assessment and Plan Plan: 1. Generalized weakness and frequent falls secondary to dehydration and hypokalemia from nausea and vomiting. Status post replacement and IV fluids. 2. Viral gastroenteritis, improved. 3. Recent CVA brainstem, david with dizziness on 01/17/2017. Left eye patch. Meclizine added. Consult with neurology appreciated. Continue PT and OT. Plan for subacute rehab. 4. Hypertension. Continue metoprolol succinate 50 mg daily. 5. Generalized anxiety disorder and recurrent depression. Continue Xanax 1 mg at bedtime, Wellbutrin 300 mg daily. 6. Insomnia the continue Xanax. 7. Tobacco use and dependence. Continue nicotine patch. 8. Hypothyroidism. Continue levothyroxine. 9. Fever with abdominal pain of unclear etiology. CAT scan of the abdomen and pelvis as above. consults requested with Dr. Hassan and Dr. Mcnamara for further evaluation., We'll going to repeat urine cultures chest x-ray venous Doppler to lower extremity date. Hold discharge patient spiked a temperature of 100 today. With her recurring fever, vasculitis cannot be ruled out, obtain a and a sed rate CRP. [facility]
[2017-01-24] MEDS: ALPRAZolam 0.5 MG TAB PO SCH (21:22)
[2017-01-25 07:52] LABS: Basophils % (A) 0 %; CH 32.4; CHCM 34.1; Eosinophils # (A) 0.1 k/uL (0-0.7); Eosinophils % (A) 1 %; HCT 34.3 % (34.0-46.0); HDW 2.75; HGB 11.1 gm/dL (11.4-16.0); Luc # (Auto) 0.08; Luc % (Auto) 1; Lymphocytes # (A) 0.6 k/uL (1.0-4.8); Lymphocytes % (A) 10 %; MCHC 32.5 g/dL (31.0-37.0); MCV 95.4 fL (80.0-100.0); Mean Platelet Volume 7.4; Monocytes # (A) 0.3 k/uL (0-1.0); Monocytes % (A) 6 %; Neutrophils # (A) 4.5 k/uL (1.3-7.7); Neutrophils % (A) 81 %; RBC 3.59 m/uL (3.80-5.40); RDW 13.2 % (11.5-15.5); WBC 5.6 k/uL (3.8-10.6); WBC (Perox) 6.14
[2017-01-25] MEDS: NICOTINE 14MG/24HR PATCH TRANSDERM SCH (07:52)
[2017-01-25] MEDS: ASPIRIN 81 MG CHEW PO SCH (07:52)
[2017-01-25] MEDS: ATORVASTATIN 20 MG TAB PO SCH (07:52)
[2017-01-25] MEDS: buPROPion XL 300 MG TAB.ER.24H PO SCH (07:52)
[2017-01-25] MEDS: CLOPIDOGREL 75 MG TAB PO SCH (07:53)
[2017-01-25] MEDS: FAMOTIDINE 20 MG TAB PO SCH ×2 (07:53→20:58)
[2017-01-25] MEDS: LEVOTHYROXINE 112 MCG TAB PO SCH (07:53)
[2017-01-25] MEDS: MECLIZINE 25 MG TAB PO SCH ×3 (07:53→20:59)
[2017-01-25 07:59] LABS: ALT 33 U/L (9-52); AST 26 U/L (14-36); Alkaline Phosphatase 53 U/L (38-126); Anion Gap 8 mmol/L; Blood Urea Nitrogen 7 mg/dL (7-17); Calcium 7.8 mg/dL (8.4-10.2); Carbon Dioxide 28 mmol/L (22-30); Chloride 100 mmol/L (98-107); Glucose 78 mg/dL (74-99); Non-African American GFR(MDRD) >60 (>60 ml/min/1.73 sqM); Potassium 3.3 mmol/L (3.5-5.1); Sodium 136 mmol/L (137-145); Total Bilirubin 0.7 mg/dL (0.2-1.3); Total Protein 5.7 g/dL (6.3-8.2)
[2017-01-25 08:20] LABS: C Reactive Protein 191.8 mg/L (<10.0)
[2017-01-25 08:57] LABS: Erythrocyte Sedimentation Rate 83 mm/hr (0-20)
--- NOTE | 2017-01-25 09:34 | US ---
EXAMINATION TYPE: US venous doppler duplex LE BI DATE OF EXAM: 01/25/2017 9:11 AM COMPARISON: NONE CLINICAL HISTORY: 61-year-old female with fever and cramping. History of rt leg DVT x 5 years ago, no t on any blood thinners. TECHNIQUE: Duplex Doppler ultrasound examination of the bilateral lower extremities. FINDINGS: SIDE PERFORMED: Bilateral VESSELS IMAGED: External Iliac Vein (EIV) Common Femoral Vein Deep Femoral Vein Greater Saphenous Vein * Femoral Vein Popliteal Vein Small Saphenous Vein * Proximal Calf Veins (* superficial vessels) Right Leg: Appears negative for DVT Left Leg: Appears negative for DVT IMPRESSION: No evidence of DVT within the bilateral lower extremities imaged from the groin to the upper calves.
[2017-01-25] MEDS: POTASSIUM CHLORIDE ER 20 MEQ TAB.ER PO SCH ×2 (09:57→11:53)
[2017-01-25] MEDS ORDERED: POTASSIUM CHLORIDE ER 20 MEQ TAB.ER PO STA (11:24)
[2017-01-25] MEDS: SODIUM CHLORIDE 0.9% 1,000 ML IV SCH ×2 (11:54→21:00)
[2017-01-25] MEDS: FLUTICASONE 50MCG/SPRAY NASAL 16GM EA NOSTRIL SCH ×2 (12:39→12:49)
[2017-01-25] MEDS: AMOXIC-POT CLAV 875-125MG 1 EACH TAB PO SCH ×2 (12:39→20:59)
--- NOTE | 2017-01-25 14:39 | P.PN ---
Subjective 61-year-old female one of Dr. Coughlin's patient with past medical history of hypertension, hypothyroidism, depression, history of rheumatoid arthritis, COPD, and previous history of deep venous thrombosis who smoke 1 pack daily for 32 years. She initially presented to [facility] and was hospitalized from January 11 through January 14 at which time she was treated for brain stem stroke and was seen in consultation by Dr. Prasad. MRI revealed evidence of brainstem stroke involving the david. She had bilateral intranuclear ophthalmoplegia and was evaluated by ophthalmology with recommendations to wear eye patch. Patient underwent a YESSICA the came back negative for intracardiac source of embolic stroke. She was continued on dual platelet therapy. She was evaluated by Dr. Austin for inpatient rehab patient preferred to go home despite her limitations. Patient returned to [facility] on January 17 because she kept falling at home and suffered from generalized weakness. She states that after she left the hospital she suffered from abdominal discomfort associated with nausea and intractable vomiting which was severe enough that she could not hold anything down. She kept vomiting and limited her fluid intake and try to stick to liquids. She came in the hospital was found to have a potassium of 2.9 and was just admitted to the hospital. She also had a fever of 100.6. She received 1 dose of Levaquin in the emergency center and was admitted to the [facility] floor. She was seen in consultation by neurologist, Dr. John. She was again evaluated by physical therapy next patient on therapy with recommendations for subacute rehab. Patient has decided on [facility]. Patient will be discharged to [facility] today in stable condition. She was prepared for discharge awaiting insurance authorization but then developed a fever of 101.2. Chest x-ray did not show any acute findings. Blood culture and urine culture obtained. Patient denied having any chest pain or cough. Influenza testing ordered which is negative. She is complaining of abdominal pain generalized and constipation for many weeks. CAT scan of the abdomen and pelvis with contrast ordered. 01/22: Patient denies any issues today. CAT scan of the abdomen and pelvis revealed 2 cm narrowing in the distal ascending colon, moderate constipation, fatty infiltration of the liver, 1 cm cyst in the upper pole of the left kidney , degenerative change in the lumbar spine. Temperature max was 100.5 yesterday afternoon. White count is 6.3. Urine culture finalized with no growth and all blood cultures are showing no growth. No signs of infection at this time. Patient will be monitored overnight and plan for discharge to [facility] tomorrow. 01/23:due to narrowing of the distal descending colon, consults were added for Dr. Hassan and Dr. Mcnamara for further evaluation. Patient does have abdominal tenderness bilateral upper quadrants but right upper quadrant is most tender. Last bowel movement was yesterday. 01/24: Patient had spiked a temperature of 100 again this morning, she didn't have any day without any fever has been spiking influenza test negative, we are repeating her urine cultures with analysis, chest x-ray, and Doppler of the legs. Patient has cramps in the legs and chills diminished appetite no diarrhea transferred to [facility] is currently held patient is not on any antibiotics at this time infectious disease is following 01/25: Old images from previous MRI reviewed 01/12/2017, patient has bilateral maxillary sinusitis and left sphenoid sinusitis, bilateral ethmoid. Mastoids are not involved She is currently symptomatic patients with remains to be febrile Augmentin started, but urinalysis is negative, chest x-ray negative, there is no DVT, minimal atelectasis noted on chest x-ray Objective - Vital Signs Vital signs: Vital Signs Temp 99.2 F 01/25/17 07:00 Pulse 78 01/25/17 07:00 Resp 16 01/25/17 07:00 BP 137/73 01/25/17 07:00 Pulse Ox 94 L 01/25/17 07:00 Intake & Output 01/24/17 01/25/17 01/25/17 18:59 06:59 18:59 Intake Total 400 Balance 400 Intake: IV 400 Sodium Chloride 0.9% 1, 400 000 ml @ 100 mls/hr IV . Q10H PETE Rx#:[id number] Other: Voiding Method Bedside Commode Bedside Commode Bedside Commode Incontinent Incontinent Incontinent # Voids 1 2 - Constitutional General appearance: Present: average body habitus, no acute distress - EENT Eyes: Present: anicteric sclerae, EOMI, dentition normal ENT: Present: NA/AT, normal oropharynx - Neck Neck: Present: normal ROM. Absent: lymphadenopathy, other, rigidity, stridor, thyromegaly - Respiratory Respiratory: bilateral: CTA, negative: diminished, dullness, rales - Cardiovascular Rhythm: regular Heart sounds: normal: S1, S2 Abnormal Heart Sounds: Absent: systolic murmur, diastolic murmur, rub, S3 Gallop , S4 Gallop, click, other - Gastrointestinal General gastrointestinal: Present: normal bowel sounds, soft - Integumentary Integumentary: Present: normal, normal turgor - Neurologic Neurologic: Present: CNII-XII intact - Musculoskeletal Musculoskeletal: Present: gait normal, strength equal bilaterally - Psychiatric Psychiatric: Present: A&O x's 3, intact judgment & insight - Labs CBC & Chem 7: 01/25/17 07:13 01/25/17 07:13 Labs: Abnormal Lab Results - Last 24 Hours (Table) 01/25/17 01/25/17 Range/Units 07:13 07:13 RBC 3.59 L (3.80-5.40) m/uL Hgb 11.1 L (11.4-16.0) gm/dL Lymphocytes # 0.6 L (1.0-4.8) k/uL ESR 83 H (0-20) mm/hr Sodium 136 L (137-145) mmol/L Potassium 3.3 L (3.5-5.1) mmol/L Calcium 7.8 L (8.4-10.2) mg/dL C-Reactive Protein 191.8 H (<10.0) mg/L Total Protein 5.7 L (6.3-8.2) g/dL Albumin 2.4 L (3.5-5.0) g/dL Microbiology - Last 24 Hours (Table) 01/24/17 18:05 Urine Culture - Preliminary Urine,Clean Catch 01/20/17 16:50 Blood Culture - Preliminary Blood No Growth after 96 hours 01/20/17 16:44 Blood Culture - Preliminary Blood No Growth after 96 hours Assessment and Plan Plan: 1. Generalized weakness and frequent falls secondary to dehydration and hypokalemia from nausea and vomiting. Status post replacement and IV fluids. 2. Viral gastroenteritis, improved. 3. Recent CVA brainstem, david with dizziness on 01/17/2017. Left eye patch. Meclizine added. Consult with neurology appreciated. Continue PT and OT. Plan for subacute rehab. 4. Hypertension. Continue metoprolol succinate 50 mg daily. 5. Generalized anxiety disorder and recurrent depression. Continue Xanax 1 mg at bedtime, Wellbutrin 300 mg daily. 6. Insomnia the continue Xanax. 7. Tobacco use and dependence. Continue nicotine patch. 8. Hypothyroidism. Continue levothyroxine. 9. Fever pansinusitis noted on MRI for prior 2016, abdominal pathology has been ruled out, no or GI pathology,. CAT scan of the abdomen and pelvis as above. consults requested with Dr. Hassan and Dr. Mcnamara for further evaluation. , We'll going to repeat urine cultures chest x-ray venous Doppler to lower extremity date. Hold discharge patient spiked a temperature of 100 today. Augmentin was started, With her recurring fever, vasculitis cannot be ruled out , obtain a and a sed rate CRP. 10. Abnormal CT of the abdomen with circumferential narrowing lesion in the distal ascending colon she needs to follow up with Dr. Mcnamara as an outpatient for colonoscopy Discharge plan: [facility] in the morning 01/26/2017
[2017-01-25] MEDS: METOPROLOL SUCCINATE (ER) 50 MG TAB.ER.24H PO SCH (16:57)
[2017-01-25] MEDS: ALPRAZolam 0.5 MG TAB PO SCH (20:58)
[2017-01-26] MEDS: SODIUM CHLORIDE 0.9% 1,000 ML IV SCH ×2 (05:35→16:36)
[2017-01-26 07:25] LABS: Basophils % (A) 0 %; CH 32.6; CHCM 33.9; Eosinophils % (A) 1 %; HCT 36.6 % (34.0-46.0); HDW 2.73; HGB 12.3 gm/dL (11.4-16.0); Luc # (Auto) 0.07; Luc % (Auto) 1; Lymphocytes # (A) 0.5 k/uL (1.0-4.8); Lymphocytes % (A) 8 %; MCH 32.4 pg (25.0-35.0); MCHC 33.5 g/dL (31.0-37.0); MCV 96.6 fL (80.0-100.0); Mean Platelet Volume 7.6; Monocytes # (A) 0.3 k/uL (0-1.0); Monocytes % (A) 6 %; Neutrophils # (A) 5.2 k/uL (1.3-7.7); Neutrophils % (A) 85 %; RBC 3.79 m/uL (3.80-5.40); RDW 13.4 % (11.5-15.5); WBC 6.2 k/uL (3.8-10.6); WBC (Perox) 6.96
[2017-01-26 07:48] LABS: ALT 32 U/L (9-52); AST 23 U/L (14-36); Alkaline Phosphatase 55 U/L (38-126); Anion Gap 11 mmol/L; Blood Urea Nitrogen 6 mg/dL (7-17); Calcium 8.2 mg/dL (8.4-10.2); Carbon Dioxide 28 mmol/L (22-30); Chloride 98 mmol/L (98-107); Glucose 83 mg/dL (74-99); Non-African American GFR(MDRD) >60 (>60 ml/min/1.73 sqM); Potassium 3.9 mmol/L (3.5-5.1); Sodium 137 mmol/L (137-145); Total Bilirubin 0.8 mg/dL (0.2-1.3); Total Protein 6.2 g/dL (6.3-8.2)
[2017-01-26] MEDS: CLOPIDOGREL 75 MG TAB PO SCH (08:36)
[2017-01-26] MEDS: AMOXIC-POT CLAV 875-125MG 1 EACH TAB PO SCH (08:36)
[2017-01-26] MEDS: FLUTICASONE 50MCG/SPRAY NASAL 16GM EA NOSTRIL SCH (08:36)
[2017-01-26] MEDS: LEVOTHYROXINE 112 MCG TAB PO SCH (08:36)
[2017-01-26] MEDS: MECLIZINE 25 MG TAB PO SCH ×2 (08:36→16:36)
[2017-01-26] MEDS: buPROPion XL 300 MG TAB.ER.24H PO SCH (08:36)
[2017-01-26] MEDS: NICOTINE 14MG/24HR PATCH TRANSDERM SCH (08:36)
[2017-01-26] MEDS: ASPIRIN 81 MG CHEW PO SCH (08:36)
[2017-01-26] MEDS: FAMOTIDINE 20 MG TAB PO SCH (08:37)
[2017-01-26 09:11] VITALS: RESP 18
[2017-01-26] MEDS: ATORVASTATIN 20 MG TAB PO SCH (11:51)
--- NOTE | 2017-01-26 12:31 | P.DS ---
Providers Date of admission: 01/17/17 22:18 Expected date of discharge: 01/26/17 Attending physician: Prakash Valderrama Consults: 01/18/17 10:15 Consult Physician Routine Consulting Provider: Michael John Consult Reason/Comments: increase weakness post CVA Do you want consulting provider notified?: Yes 01/23/17 08:44 Consult Physician Routine Consulting Provider: Odalys Hassan Consult Reason/Comments: Narrowing in colon, concern for abscess, source of F Do you want consulting provider notified?: Yes 01/23/17 08:46 Consult Physician Routine Consulting Provider: Esmer Mcnamara Consult Reason/Comments: colon narrowing, concern for abscess source of F Do you want consulting provider notified?: Yes [facility]: 61-year-old female one of Dr. Coughlin's patient with past medical history of hypertension, hypothyroidism, depression, history of rheumatoid arthritis, COPD, and previous history of deep venous thrombosis who smoke 1 pack daily for 32 years. She initially presented to [facility] and was hospitalized from January 11 through January 14 at which time she was treated for brain stem stroke and was seen in consultation by Dr. Prasad. MRI revealed evidence of brainstem stroke involving the david. She had bilateral intranuclear ophthalmoplegia and was evaluated by ophthalmology with recommendations to wear eye patch. Patient underwent a YESSICA the came back negative for intracardiac source of embolic stroke. She was continued on dual platelet therapy. She was evaluated by Dr. Austin for inpatient rehab patient preferred to go home despite her limitations. Patient returned to [facility] on January 17 because she kept falling at home and suffered from generalized weakness. She states that after she left the hospital she suffered from abdominal discomfort associated with nausea and intractable vomiting which was severe enough that she could not hold anything down. She kept vomiting and limited her fluid intake and try to stick to liquids. She came in the hospital was found to have a potassium of 2.9 and was just admitted to the hospital. She also had a fever of 100.6. She received 1 dose of Levaquin in the emergency center and [facility]. She was seen in consultation by neurologist, Dr. John. She was again evaluated by physical therapy next patient on therapy with recommendations for subacute rehab. Patient has decided on [facility]. Patient will be discharged to [facility] today in stable condition. She was prepared for discharge awaiting insurance authorization but then developed a fever of 101.2. Chest x-ray did not show any acute findings. Blood culture and urine culture obtained. Patient denied having any chest pain or cough. Influenza testing ordered which is negative. She is complaining of abdominal pain generalized and constipation for many weeks. CAT scan of the abdomen and pelvis with contrast ordered. 01/22: Patient denies any issues today. CAT scan of the abdomen and pelvis revealed 2 cm narrowing in the distal ascending colon, moderate constipation, fatty infiltration of the liver, 1 cm cyst in the upper pole of the left kidney , degenerative change in the lumbar spine. Temperature max was 100.5 yesterday afternoon. White count is 6.3. Urine culture finalized with no growth and all blood cultures are showing no growth. No signs of infection at this time. Patient will be monitored overnight and plan for discharge to [facility] tomorrow. 01/23:due to narrowing of the distal descending colon, consults were added for Dr. Hassan and Dr. Mcnamara for further evaluation. Patient does have abdominal tenderness bilateral upper quadrants but right upper quadrant is most tender. Last bowel movement was yesterday. 01/24: Patient had spiked a temperature of 100 again this morning, she didn't have any day without any fever has been spiking influenza test negative, we are repeating her urine cultures with analysis, chest x-ray, and Doppler of the legs. Patient has cramps in the legs and chills diminished appetite no diarrhea transferred to [facility] is currently held patient is not on any antibiotics at this time infectious disease is following 01/25: Old images from previous MRI reviewed 01/12/2017, patient has bilateral maxillary sinusitis and left sphenoid sinusitis, bilateral ethmoid. Mastoids are not involved She is currently symptomatic patients with remains to be febrile Augmentin started, but urinalysis is negative, chest x-ray negative, there is no DVT, minimal atelectasis noted on chest x-ray 01/26: Patient is to follow-up with Dr. Mcnamara for an outpatient colonoscopy. Abdominal pain and tenderness have resolved. Dr. zafar has evaluated the patient recommends no antibiotics at this time as suspicion remains low for bacterial infection. Patient will be discharged to [facility] today in stable condition. Discharge diagnoses: 1. Generalized weakness and frequent falls secondary to dehydration and hypokalemia from nausea and vomiting. 2. Viral gastroenteritis, improved. 3. Recent CVA brainstem, david with dizziness on 01/17/2017. Left eye patch. 4. Hypertension. 5. Generalized anxiety disorder and recurrent depression. 6. Insomnia 7. Tobacco use and dependence. 8. Hypothyroidism. 9. Fever pansinusitis noted on MRI January 16 2017, abdominal pathology has been ruled out, no or GI pathology. 10. Abnormal CT of the abdomen with circumferential narrowing lesion in the distal ascending colon she needs to follow up with Dr. Mcnamara as an outpatient for colonoscopy Discharge plan: [facility] 01/26/2017 Impression and plan of care have been directed as dictated by the signing physician. Soraida Pedersen nurse practitioner acting as scribe for signing physician. Patient Condition at Discharge: Good Plan - Discharge Summary New Discharge Prescriptions: ALPRAZolam [Xanax] 1 mg PO HS #30 tablet Discharge Medication List Levothyroxine Sodium [Synthroid] 112 mcg PO DAILY 12/25/15 [History] Metoprolol Succinate [Toprol XL] 50 mg PO DAILY@1700 12/25/15 [History] buPROPion HCL [Wellbutrin XL] 300 mg PO DAILY 12/25/15 [History] traZODone HCL [Desyrel] 100 mg PO HS 12/25/15 [History] Acetaminophen Tab [Tylenol] 650 mg PO Q4HR PRN #0 tab 01/14/17 [Rx] Aspirin 81 mg PO DAILY #30 chewable 01/14/17 [Rx] Clopidogrel Bisulfate [Plavix] 75 mg PO DAILY #30 tab 01/14/17 [Rx] Nicotine 14Mg/24Hr Patch [Habitrol] 1 patch TRANSDERM DAILY #30 patch 01/14/17 [ Rx] ALPRAZolam [Xanax] 1 mg PO HS #30 tablet 01/20/17 [Rx] Atorvastatin [Lipitor] 20 mg PO DAILY tab 01/20/17 [Rx] Famotidine [Pepcid] 20 mg PO BID tab 01/20/17 [Rx] Amoxic-Pot Clav 875-125Mg [Augmentin 875-125] 1 each PO Q12HR #14 tab 01/26/17 [ Rx] Fluticasone Nasal [place] [Flonase Nasal [place]] 2 spray EA NOSTRIL DAILY spr [Rx] Meclizine [Antivert] 25 mg PO TID tab 01/26/17 [Rx] Follow up Appointment(s)/Referral(s): Esmer Mcnamara DO [Doctor of Osteopathic Medicine] - 3 Weeks (For outpatient colonoscopy.) Bere Pradhan MD [Primary Care Provider] - 1 Week (After discharge from [facility]) Odalys Hassan MD [STAFF PHYSICIAN] - 1 Week Discharge Disposition: TRANSFER TO SNF/ECF
[2017-01-26 14:59] LABS: ANA w/Reflex to Titer POSITIVE (NEGATIVE)
[2017-01-26] MEDS: METOPROLOL SUCCINATE (ER) 50 MG TAB.ER.24H PO SCH (16:36)
[2017-01-26 17:46] VITALS: BP 132/76; PULSE 84; TEMP 98.3
--- NOTE | 2017-01-26 21:21 | PN ---
DATE OF SERVICE: 01/26/2017 Reason for follow-up: Fever with question of possible vasculitis. INTERVAL HISTORY: The patient did have a low grade fever last night of 100.5. However, the patient is afebrile since then. She currently denies having any headache. The patient denies having any URI symptoms. Denies any chest pain, shortness of breath or cough. No abdominal pain or any diarrhea. On examination, blood pressure is 117/71 with a pulse of 78, temperature 98.4, she is 95% on 2 liters nasal cannula. GENERAL DESCRIPTION: Middle-age female lying in bed in no distress. HEENT EXAMINATION: No pallor or scleral icterus. Oral mucosa membranes dry. LUNGS: Unlabored breathing. Clear auscultation anteriorly. HEART: S1, S2. Regular rate and rhythm. ABDOMEN: Soft, no tenderness. LABS: Hemoglobin is 12.8, white count 6.2 with a BUN of 6, creatinine 0.59. She did have an elevated JOE screen. As well as ERP and ESR. Culture has been. DIAGNOSTIC IMPRESSION AND PLAN: Patient with the fever could be related to vasculitis in view of elevated CRP and sedimentation rate and JOE in a patient who does not have any clinical focus of infection. All her cultures have been negative. May benefit from a rheumatology evaluation. was present at the bedside. His questions and concerns were answered.
== END 2017-01-26 17:46 | DRG 392 ==
LOC: EC 19:01 → 5ONC 22:18 → OBSVTOIN 22:18 → MERGE 22:18 → INTOOBSV 01-23 16:33 → OBSVTOIN 01-23 16:33
PROVIDERS: ADMIT Internal Medicine; ATTEND Internal Medicine
DX: A08.4 Viral intestinal infection, unspecified (principal); F33.9 Major depressive disorder, recurrent, unspecified; K76.0 Fatty (change of) liver, not elsewhere classified; E86.0 Dehydration; I10 Essential (primary) hypertension; E03.9 Hypothyroidism, unspecified; E87.6 Hypokalemia; F41.1 Generalized anxiety disorder; G47.00 Insomnia, unspecified; H49.9 Unspecified paralytic strabismus; I69.398 Other sequelae of cerebral infarction; H53.2 Diplopia; J32.0 Chronic maxillary sinusitis; J32.3 Chronic sphenoidal sinusitis; J44.9 Chronic obstructive pulmonary disease, unspecified; K59.09 Other constipation; M06.9 Rheumatoid arthritis, unspecified; R29.6 Repeated falls; Z79.82 Long term (current) use of aspirin; Z86.718 Personal history of other venous thrombosis and embolism; Z72.0 Tobacco use; Z91.14 Patient's other noncompliance with medication regimen; Z79.899 Other long term (current) drug therapy
CPT/HCPCS: 36415; 71020; 74177; 80053; 81003; 82550; 82553; 83605; 83735; 84132; 84484; 85025; 85027; 85610; 85652; 85730; 86038; 86039; 86140; 87040; 87086; 87502; 93005; 93970; 94760; 96365; 96367; 99285

== ENCOUNTER → 2017-04-17 | Outpatient (CLI) | payer BC, OTHER ==
[2017-04-17 19:44] LABS: Anisocytosis Slight; Basophils % (A) 1 %; CH 33.3; CHCM 31.9; Eosinophils # (A) 0.2 k/uL (0-0.7); Eosinophils % (A) 4 %; HCT 38.8 % (34.0-46.0); HDW 2.68; HGB 12.7 gm/dL (11.4-16.0); Luc # (Auto) 0.08; Luc % (Auto) 2; Lymphocytes # (A) 0.8 k/uL (1.0-4.8); Lymphocytes % (A) 21 %; MCH 34.3 pg (25.0-35.0); MCHC 32.7 g/dL (31.0-37.0); MCV 104.9 fL (80.0-100.0); Macrocytosis Moderate; Mean Platelet Volume 7.9; Monocytes # (A) 0.2 k/uL (0-1.0); Monocytes % (A) 4 %; Neutrophils # (A) 2.7 k/uL (1.3-7.7); Neutrophils % (A) 68 %; RDW 16.8 % (11.5-15.5); WBC (Perox) 3.96
== END | disposition home or self-care (01) ==
LOC: MMGSC 15:43
PROVIDERS: ATTEND Family Medicine
DX: D64.9 Anemia, unspecified (principal); E03.9 Hypothyroidism, unspecified
CPT/HCPCS: 36415; 84439; 84443; 85025

== ENCOUNTER → 2017-05-01 | Outpatient (CLI) | payer BC, OTHER ==
[2017-05-01 21:50] LABS: Prothrombin Time 51.3 sec (9.0-12.0)
[2017-05-01 22:30] LABS: INR 5.1 (<1.1)
== END | disposition home or self-care (01) ==
LOC: MMGSC 14:01
PROVIDERS: ATTEND Family Medicine
DX: Z51.81 Encounter for therapeutic drug level monitoring (principal); Z79.01 Long term (current) use of anticoagulants
CPT/HCPCS: 36415; 85610

== ENCOUNTER → 2017-05-04 | Outpatient (CLI) | payer BC, OTHER ==
[2017-05-04 19:02] LABS: INR 3.6 (<1.1); Prothrombin Time 35.1 sec (9.0-12.0)
== END ==
LOC: MMGSC 15:26
PROVIDERS: ATTEND Family Medicine
DX: Z51.81 Encounter for therapeutic drug level monitoring (principal); Z79.01 Long term (current) use of anticoagulants
CPT/HCPCS: 36415; 85610

== ENCOUNTER → 2017-05-08 | Outpatient (CLI) | payer BC, OTHER ==
[2017-05-08 21:47] LABS: INR 1.8 (<1.1)
== END ==
LOC: MMGSC 14:30
PROVIDERS: ATTEND Family Medicine
DX: Z51.81 Encounter for therapeutic drug level monitoring (principal); Z79.01 Long term (current) use of anticoagulants
CPT/HCPCS: 36415; 85610

== ENCOUNTER → 2017-05-15 | Outpatient (CLI) | payer BC, OTHER ==
[2017-05-15 20:50] LABS: INR 5.1 (<1.1)
== END ==
LOC: MMGSC 10:58
PROVIDERS: ATTEND Family Medicine
DX: Z51.81 Encounter for therapeutic drug level monitoring (principal); Z79.01 Long term (current) use of anticoagulants
CPT/HCPCS: 36415; 85610

== ENCOUNTER → 2017-05-18 | Outpatient (CLI) | payer BC, OTHER ==
[2017-05-18 18:54] LABS: INR 2.9 (<1.1); Prothrombin Time 28.4 sec (9.0-12.0)
== END ==
LOC: MMGSC 14:23
PROVIDERS: ATTEND Family Medicine
DX: Z51.81 Encounter for therapeutic drug level monitoring (principal); Z79.01 Long term (current) use of anticoagulants
CPT/HCPCS: 36415; 85610

== ENCOUNTER → 2017-07-07 | Outpatient (CLI) | payer BC, OTHER ==
[2017-07-07 19:40] LABS: Basophils % (A) 1 %; CH 33.5; CHCM 32.4; Eosinophils # (A) 0.1 k/uL (0-0.7); Eosinophils % (A) 2 %; HCT 47.3 % (34.0-46.0); HDW 2.33; HGB 14.9 gm/dL (11.4-16.0); Luc # (Auto) 0.07; Luc % (Auto) 1; Lymphocytes # (A) 1.1 k/uL (1.0-4.8); Lymphocytes % (A) 19 %; MCH 32.6 pg (25.0-35.0); MCHC 31.4 g/dL (31.0-37.0); MCV 103.7 fL (80.0-100.0); Macrocytosis Slight; Mean Platelet Volume 8.4; Monocytes # (A) 0.3 k/uL (0-1.0); Monocytes % (A) 5 %; Neutrophils # (A) 4.1 k/uL (1.3-7.7); Neutrophils % (A) 72 %; RBC 4.57 m/uL (3.80-5.40); RDW 13.4 % (11.5-15.5); WBC 5.7 k/uL (3.8-10.6); WBC (Perox) 5.51
[2017-07-07 19:44] LABS: INR 2.1 (<1.2); Prothrombin Time 19.9 sec (9.0-12.0)
[2017-07-07 20:13] LABS: % Iron Saturation 39.6 % (20-50)
== END | disposition home or self-care (01) ==
LOC: MMGSC 11:55
PROVIDERS: ATTEND Family Medicine
DX: D64.9 Anemia, unspecified (principal); E03.9 Hypothyroidism, unspecified; Z79.01 Long term (current) use of anticoagulants
CPT/HCPCS: 36415; 82728; 83540; 83550; 84439; 84443; 85025; 85610

== ENCOUNTER → 2017-08-11 | Outpatient (CLI) | payer BC, OTHER ==
[2017-08-11 20:04] LABS: INR 1.4 (<1.2); Prothrombin Time 13.5 sec (9.0-12.0)
== END ==
LOC: MMGSC 10:53
PROVIDERS: ATTEND Family Medicine
DX: Z51.81 Encounter for therapeutic drug level monitoring (principal); Z79.01 Long term (current) use of anticoagulants
CPT/HCPCS: 36415; 85610

== ENCOUNTER → 2017-12-15 | Outpatient (CLI) | payer BC, OTHER ==
[2017-12-15 19:14] LABS: Basophils # (A) 0.1 k/uL (0-0.2); Basophils % (A) 1 %; Eosinophils # (A) 0.1 k/uL (0-0.7); Eosinophils % (A) 2 %; HCT 44.7 % (34.0-46.0); HGB 14.7 gm/dL (11.4-16.0); Lymphocytes # (A) 1.1 k/uL (1.0-4.8); Lymphocytes % (A) 23 %; MCH 33.2 pg (25.0-35.0); MCV 100.6 fL (80.0-100.0); Mean Platelet Volume 7.6; Monocytes # (A) 0.2 k/uL (0-1.0); Monocytes % (A) 5 %; Neutrophils # (A) 3.2 k/uL (1.3-7.7); Neutrophils % (A) 68 %; Platelet Count 152 k/uL (150-450); RBC 4.44 m/uL (3.80-5.40); RDW 13.3 % (11.5-15.5); WBC 4.7 k/uL (3.8-10.6)
[2017-12-15 19:17] LABS: T4, Free (Free Thyroxine) 1.62 ng/dL (0.78-2.19)
[2017-12-16 01:44] LABS: Vitamin D 25 Hydroxy 20.2 ng/mL (30.0-100.0)
== END | disposition home or self-care (01) ==
LOC: MMGSC 12:02
PROVIDERS: ATTEND Family Medicine
DX: E03.9 Hypothyroidism, unspecified (principal); R53.83 Other fatigue
CPT/HCPCS: 36415; 82306; 82607; 84439; 84443; 85025

== ENCOUNTER → 2018-01-21 | Outpatient (CLI) | payer BC, OTHER ==
[2018-01-21 18:59] LABS: INR 2.6 (<1.2); Prothrombin Time 22.9 sec (9.0-12.0)
== END | disposition home or self-care (01) ==
LOC: MMGSC 11:05
PROVIDERS: ATTEND Family Medicine
DX: Z51.81 Encounter for therapeutic drug level monitoring (principal); Z79.01 Long term (current) use of anticoagulants
CPT/HCPCS: 36415; 85610

== ENCOUNTER → 2018-02-22 | Outpatient (CLI) | payer BC, OTHER ==
[2018-02-22 19:44] LABS: Prothrombin Time 52.9 sec (9.0-12.0)
[2018-02-22 21:18] LABS: INR 5.8 (<1.2)
== END | disposition home or self-care (01) ==
LOC: MMGSC 11:35
PROVIDERS: ATTEND Family Medicine
DX: Z51.81 Encounter for therapeutic drug level monitoring (principal); Z79.01 Long term (current) use of anticoagulants
CPT/HCPCS: 36415; 85610

== ENCOUNTER → 2018-03-09 | Outpatient (CLI) | payer BC, OTHER ==
[2018-03-09 19:41] LABS: INR 3.2 (<1.2)
== END | disposition home or self-care (01) ==
LOC: MMGSC 11:52
PROVIDERS: ATTEND Family Medicine
DX: Z51.81 Encounter for therapeutic drug level monitoring (principal); Z79.01 Long term (current) use of anticoagulants
CPT/HCPCS: 36415; 85610

== ENCOUNTER → 2022-06-12 | Outpatient (CLI) | payer MEDICARE ==
--- NOTE | 2022-06-13 12:13 | MM ---
Reason for Exam: Screening (asymptomatic). Last mammogram was performed 14 year(s) and 7 month(s) ago. Patient History: Menarche at age 15. Left ovary removed at age 48. Right ovary removed at age 48. Hysterectomy at age 48. Postmenopausal. Core Biopsy on the Right side. 03/07/2005, Benign Stereotactic Core Biopsy on the right side. Risk Values: Tawnya 5 year model risk: 1.8%. NCI Lifetime model risk: 6.8%. Prior Study Comparison: 01/10/2005 Bilateral Screening Mammogram, [facility]. 02/20/2005 Right Special View Mammogram, [facility]. 11/29/2007 Bilateral Screening Mammogram, [facility]. Tissue Density: The breast tissue is almost entirely fat. Findings: Analyzed By CAD. Biopsy clip within the right breast. There is a group of calcifications within the left outer upper quadrant at middle depth. There is a ovoid mass in the upper outer quadrant at anterior depth measuring 4 mm. Overall Assessment: Incomplete: need additional imaging evaluation, BI-RAD 0 Management: Diagnostic Mammogram of the left breast. Diagnostic Breast Ultrasound of the left breast. A clinical breast exam by your physician is recommended on an annual basis and results should be correlated with mammographic findings. Return for additional views of the left middle depth grouped calcifications in the upper outer quadrant. Return for additional views and possible ultrasound for the right anterior depth ovoid mass in the upper outer quadrant. Electronically signed and approved by: Romeo Henry DO
== END | disposition home or self-care (01) ==
LOC: RADMAMWWP 14:55
PROVIDERS: ATTEND Family Medicine
DX: Z12.31 Encounter for screening mammogram for malignant neoplasm of breast (principal); Z78.0 Asymptomatic menopausal state
CPT/HCPCS: 77067

== ENCOUNTER → 2022-06-17 | Outpatient (CLI) | payer MEDICARE ==
--- NOTE | 2022-06-17 12:27 | MM ---
Reason for Exam: Additional evaluation requested from abnormal screening. Last screening mammogram was performed less than 1 month ago. Patient History: Menarche at age 15. Left ovary removed at age 48. Right ovary removed at age 48. Hysterectomy at age 48. Postmenopausal. Core Biopsy on the Right side. 03/07/2005, Benign Stereotactic Core Biopsy on the right side. Risk Values: Tawnya 5 year model risk: 1.8%. NCI Lifetime model risk: 6.8%. Prior Study Comparison: 02/20/2005 Right Special View Mammogram, [facility]. 11/29/2007 Bilateral Screening Mammogram, [facility]. 06/12/2022 Bilateral MG screening mammo w CAD, [facility]. Tissue Density: Left: There are scattered fibroglandular densities. Findings: Analyzed By CAD. Mammogram Grouped calcifications upper outer quadrant left breast.. Technique: Method: Targeted. Findings: The upper outer quadrant of the right breast, the axilla of the right breast and the retroareolar of the right breast were scanned. No sonographic abnormality identified. Overall Assessment: Suspicious, BI-RAD 4 Assessment: MG work up mamm w CAD LT - Left: Suspicious, BI-RAD 4. US breast workup limited RT - Right: Probably benign, BI-RAD 3. Management: Special View Mammogram of the right breast in 6 months. A clinical breast exam by your physician is recommended on an annual basis and results should be correlated with mammographic findings. Results were given to the patient verbally at the time of exam. Stereotactic Core Biopsy of the left breast. Electronically signed and approved by: Rai Christianson M.D. Radiologis
== END | disposition home or self-care (01) ==
LOC: RADMAMWWP 08:40
PROVIDERS: ATTEND Family Medicine
DX: R92.8 Other abnormal and inconclusive findings on diagnostic imaging of breast (principal); R92.1 Mammographic calcification found on diagnostic imaging of breast; Z78.0 Asymptomatic menopausal state
CPT/HCPCS: 77065

== ENCOUNTER → 2022-08-01 | Day surgery (SDC) | payer MEDICARE ==
[2022-08-01 07:34] VITALS: PULSE 77; RESP 16
--- NOTE | 2022-08-01 08:24 | P.GSHP ---
History of Present Illness H&P Date: 08/01/22 Chief Complaint: microcalcofications of concern left breast Felipe is a 67 year old white female seen in consultation for Dr. Francia Coughlin regarding mammographic abnormality in her left breast. She had an initial bilateral screening mammogram and [address]82. This revealed a 4 mm area of nodularity in the right breast as well as microcalcifications in the left breast. An ultrasound of the right breast was then performed and [address]17 which did not reveal any specific lesions of concern. Diagnostic mammogram of the left breast did reveal the microcalcifications and was recommended for stereotactic core biopsy be performed. Repeat 6 month mammogram of the right breast was recommended. The patient does not feel any lumps masses or nodules of concern in her breasts. She has had a prior right posterior biopsy approximately 7 years ago which was benign. She has not had any recent trauma or infection in her breast. Caffeine: none nicotine: none BCP: stopped 40 years ago, used for 2 years chocolate: occasional Family history: Son: of neuroblastoma Hormonal history: Menarche: 14 M2, breast fed: no, age at first : 22 menopause: complete hysterectomy at 49; bleeding hormones: none Surgical history: Total abdominal hysterectomy for bleeding tonsil thyroidectomy no cancer whole thyroid goiter gallbladder appy two bladder surgeries for fistulas Medical History: CVA 6 years ago, can't walk well uses a wheel chair incontinent of urine diabetes 6 years blood thinners secondary to CVA HTN DVT in past Social History: 20: Negative Alcohol: Negative Drugs: Negative - Constitutional Constitutional: Denies chills, Denies fever - EENT Eyes: denies blurred vision, denies pain Ears: deny: decreased hearing, tinnitus Ears, nose, mouth and throat: Denies headache, Denies sore throat - Breasts Breasts: bilateral: as per HPI - Cardiovascular Cardiovascular: Denies chest pain, Denies shortness of breath - Respiratory Respiratory: Denies cough, Denies 7 - Gastrointestinal Gastrointestinal: Denies abdominal pain, Denies diarrhea, Denies nausea, Denies vomiting - Genitourinary (Female) Genitourinary: Reports as per HPI - Menstruation Menstruation: Reports post hysterectomy - Musculoskeletal Musculoskeletal: Reports as per HPI - Integumentary Integumentary: Reports pruritus - Neurological Comment: CVa 6 YEARS AGO Neurological: Reports as per HPI - Psychiatric Psychiatric: Denies anxiety, Denies depression - Endocrine Comment: diabetes type 2, goiter removed - Hematologic/Lymphatic Comment: coumadin secondary to CVA - Allergic/Immunologic Allergic/Immunologic: Reports as per HPI Past Medical History Past Medical History: CVA/TIA, Deep Vein Thrombosis (DVT), Hypertension, Rheumatoid Arthritis (RA), Thyroid Disorder Additional Past Medical History / Comment(s): HX OF DVT IN LEG; Brain Stem Stroke 2015 History of Any Multi-Drug Resistant Organisms: None Reported Past Surgical History: Appendectomy, Bladder Surgery, Cholecystectomy, Hysterectomy, Tonsillectomy Additional Past Surgical History / Comment(s): THYROIDECTOMY, CATARACTS bilat, bladder surgy to repair fistula from hystorectomy Past Anesthesia/Blood Transfusion Reactions: Motion Sickness, Postoperative Nausea & Vomiting (PONV) Past Psychological History: Anxiety, Depression Smoking Status: Former smoker Past Alcohol Use History: None Reported Additional Past Alcohol Use History / Comment(s): SMOKES LESS THAN A PPD. SMOKING FOR 32 YEARS. Past Drug Use History: None Reported - Past Family History Son(s) Family Medical History: Cancer Additional Family Medical History / Comment(s): NEUROBLASTOMA Medications and Allergies Home Medications Medication Instructions Recorded Confirmed Type Levothyroxine Sodium [Synthroid] 112 mcg PO DAILY 12/25/15 08/01/22 History buPROPion HCL [Wellbutrin XL] 300 mg PO DAILY 12/25/15 08/01/22 History traZODone HCL [Desyrel] 100 mg PO HS 12/25/15 08/01/22 History Atorvastatin [Lipitor] 20 mg PO DAILY tab 01/20/17 08/01/22 Rx Warfarin [Coumadin] 2.5 mg PO TID 07/18/22 08/01/22 History Warfarin [Coumadin] 5 mg PO DAILY 07/18/22 08/01/22 History lisinopriL [Zestril] 5 mg PO DAILY 07/18/22 08/01/22 History Allergies Allergy/AdvReac Type Severity Reaction Status Date / Time No Known Allergies Allergy Verified 08/01/22 07:50 Surgical - Exam Vital Signs Temp Pulse Resp 98.5 F 77 16 08/01/22 07:26 08/01/22 07:26 08/01/22 07:26 BMI: 33.3 - General moderate distress - Eyes normal ocular movement - Neck trachea midline - Respiratory normal respiratory effort, clear to auscultation - Cardiovascular Rhythm: regular Heart Sounds: normal: S1, S2 - Abdomen Abdomen: soft, non tender, no guarding, no rigid, no rebound - Integumentary normal turgor - Neurologic no disoriented, no combative - Musculoskeletal in a wheel chair - Psychiatric oriented to time, oriented to person, oriented to place, speech is normal, memory intact Breast Exam: BRA: large Inspection: Bilateral grade 3 ptosis Palpation: Right breast: No dominant masses or nodules of concern Right axilla: No adenopathy of concern Left breast: No dominant masses or nodules of concern Left axilla: No adenopathy of concern Results Mammogram reviewed with Dr. Song; small area of nodularity right breast, microcalcifications of concern left breast Assessment and Plan Assessment: Impression/Plan Microcalcifications of concern left breast/recommend stereotactic core biopsy Small area of nodularity right breast/ultrasound did not show any lesions of concern repeat mammogram of right breast in 6 months CVA 6 years ago, can't walk well uses a wheel chair incontinent of urine diabetes 6 years blood thinners secondary to CVA HTN DVT in past Skin benefits of the procedure discussed with the patient. Risk include but are not limited to bleeding, infection, reaction to the anesthetic. Alternatives such as watchful waiting resection the operating room were discussed but not recommended. Additionally we have talked about possibly doing this on a 3-D stereo table where the patient could be in an upright position however at this time she would like to attempt the procedure at our institution. Cc: Dr. Abelino Coughlin
--- NOTE | 2022-08-01 09:05 | P.PCN ---
Date of Procedure: 08/01/22 Preoperative Diagnosis: Microcalcifications of concern left breast upper outer quadrant Postoperative Diagnosis: Same Procedure(s) Performed: Left breast stereotactic core biopsy Anesthesia: local Surgeon: Olimpia Gauthier Pathology: other (Breast tissue with radiograph showing microcalcifications of concern) Condition: stable Disposition: same day Indications for Procedure: Microcalcifications of concern left breast upper outer quadrant Operative Findings: Biopsy specimen shows microcalcifications of concern Description of Procedure: The patient is a 67-year-old white female who underwent a routine mammogram was noted to have some microcalcifications of concern in the left breast in the upper outer quadrant. Physical examination did not reveal any lumps masses or nodules of concern in either breast. A stereotactic core biopsy was grey mmended. Risks and benefits of the procedure were discussed with the patient. Risks include but are not limited to bleeding, infection, reaction to the anesthetic. The specimen were to be discordant further tissue sampling may be warranted. Alternatives such as watchful waiting and resection the operating room were discussed but not recommended. The patient agreed and wished to proceed. The patient was taken to the stereotactic core biopsy room. She was positioned prone on the low rad table. A ham facer film was obtained. A lateral to medial approach was utilized. The area of concern was identified. The lesion was targeted. The breast was prepped using Betadine. 20 mL of 1% lidocaine were used to anesthetize the area of concern. A 9-gauge vacuum-assisted core rotating biopsy needle was driven to the correct coordinates. A prefire film was obtained. The needle was noted to be in the correct location. The needle was fired. Post fire film was obtained. The needle was noted to be in the correct location. 12 core biopsy specimens were obtained. Radiograph of the specimens revealed the calcifications of concern had been sampled. A secure marked topical clip was placed. Radiograph confirmed this to be in the correct location. The specimen was sent to pathology. The patient will follow with Dr. Morocho in 1 week. The patient tolerated procedure in stable condition. Cc: Dr. Pradhan
[2022-08-01 09:09] VITALS: BP 128/88; TEMP 98.1
--- NOTE | 2022-08-05 07:47 | MM ---
Date of Procedure: 08/01/22 Preoperative Diagnosis: Microcalcifications of concern left breast upper outer quadrant Postoperative Diagnosis: Same Procedure(s) Performed: Left breast stereotactic core biopsy Anesthesia: local Surgeon: Olimpia Gauthier Pathology: other (Breast tissue with radiograph showing microcalcifications of concern) Condition: stable Disposition: same day Indications for Procedure: Microcalcifications of concern left breast upper outer quadrant Operative Findings: Biopsy specimen shows microcalcifications of concern Description of Procedure: The patient is a 67-year-old white female who underwent a routine mammogram was noted to have some microcalcifications of concern in the left breast in the upper outer quadrant. Physical examination did not reveal any lumps masses or nodules of concern in either breast. A stereotactic core biopsy was recommended. Risks and benefits of the procedure were discussed with the patient. Risks include but are not limited to bleeding, infection, reaction to the anesthetic. The specimen were to be discordant further tissue sampling may be warranted. Alternatives such as watchful waiting and resection the operating room were discussed but not recommended. The patient agreed and wished to proceed. The patient was taken to the stereotactic core biopsy room. She was positioned prone on the low rad table. A wage hand film was obtained. A lateral to medial approach was utilized. The area of concern was identified. The lesion was targeted. The breast was prepped using Betadine. 20 mL of 1% lidocaine were used to anesthetize the area of concern. A 9-gauge vacuum-assisted core rotating biopsy needle was driven to the correct coordinates. A prefire film was obtained. The needle was noted to be in the correct location. The needle was fired. Post fire film was obtained. The needle was noted to be in the correct location. 12 core biopsy specimens were obtained. Radiograph of the specimens revealed the calcifications of concern had been sampled. A secure marked topical clip was placed. Radiograph confirmed this to be in the correct location. The specimen was sent to pathology. The patient will follow with Dr. Morocho in 1 week. The patient tolerated procedure in stable condition. BEATRIS
== END ==
LOC: RADMAMWWP 06:47
PROVIDERS: ATTEND Surgery
DX: D24.2 Benign neoplasm of left breast (principal); N62 Hypertrophy of breast; R92.0 Mammographic microcalcification found on diagnostic imaging of breast; I10 Essential (primary) hypertension; M06.9 Rheumatoid arthritis, unspecified; E07.9 Disorder of thyroid, unspecified; F17.210 Nicotine dependence, cigarettes, uncomplicated; F41.9 Anxiety disorder, unspecified; K91.0 Vomiting following gastrointestinal surgery; F32.A Depression, unspecified; Z86.73 Personal history of transient ischemic attack (TIA), and cerebral infarction without residual deficits; Z86.718 Personal history of other venous thrombosis and embolism; Z90.89 Acquired absence of other organs; Z98.890 Other specified postprocedural states; Z98.41 Cataract extraction status, right eye; Z98.42 Cataract extraction status, left eye; Z90.710 Acquired absence of both cervix and uterus; T75.3XXD Motion sickness, subsequent encounter; Z80.8 Family history of malignant neoplasm of other organs or systems; Z79.890 Hormone replacement therapy; Z79.899 Other long term (current) drug therapy
CPT/HCPCS: 88305; 85610; 85730; 19081; A4648; J2001

== ENCOUNTER → 2022-08-01 | Outpatient (CLI) | payer MEDICARE ==
[2022-08-01 07:42] LABS: Partial Thromboplastin Time 23.3 sec (22.0-30.0); Prothrombin Time 10.5 sec (9.0-12.0)
[2022-08-01 07:50] VITALS: BP 89/69; PULSE 79; RESP 16
== END ==
LOC: WWCWWP 06:45
PROVIDERS: ATTEND Surgery
DX: Z53.9 Procedure and treatment not carried out, unspecified reason (principal)
CPT/HCPCS: 85610; 85730

== ENCOUNTER → 2022-08-14 | Outpatient (CLI) | payer MEDICARE ==
[2022-08-14 09:01] VITALS: BP 133/91; PULSE 81; RESP 18; TEMP 98.3
--- NOTE | 2022-08-14 09:18 | P.PN ---
Subjective Progress Note Date: 08/14/22 Principal diagnosis: fibrocystic breast changes Felipe is a 67 year old white female status post sterotactic core biopsy of the left breast on 08-01-22. Her pathology revealed benign fibrocystic change with focal fibrotic fibroadenomatoid stromal hyperplasia and focal micro calcification. This was felt to be benign specific. The patient complained of some discomfort following the procedure with some ecchymosis. This is resolving at the present time. Objective - Vital Signs Vital signs: Vital Signs Temp 98.3 F 08/14/22 08:59 Pulse 81 08/14/22 08:59 Resp 18 08/14/22 08:59 BP 133/91 08/14/22 08:59 Pulse Ox 97 08/14/22 08:59 FiO2 Intake & Output 08/13/22 08/14/22 08/14/22 18:59 06:59 18:59 Weight 90.718 kg - Exam BMI: 32.8 - Constitutional General appearance: Present: cooperative - EENT Eyes: Present: EOMI ENT: Present: hearing grossly normal - Respiratory Respiratory: bilateral: CTA - Cardiovascular Heart sounds: normal: S1, S2 - Integumentary Integumentary Comment(s): Biopsy site left breast clean and dry, mild ecchymosis no evidence of hematoma or infection Assessment and Plan Assessment: Impression: Patient status post left breast stereotactic core biopsy and 9221 pathology benign concordant Plan: Repeat left breast mammogram in 6 months with physician exam at that time Patient to follow up sooner any questions or concerns CC: Dr. Pradhan
== END ==
LOC: WWCWWP 08:51
PROVIDERS: ATTEND Surgery
DX: R92.8 Other abnormal and inconclusive findings on diagnostic imaging of breast (principal); Z87.891 Personal history of nicotine dependence